=== PATIENT | male | born 1955 | race Caucasian/White ===

== ENCOUNTER 2016-10-12 11:52 | Inpatient (IN) | payer OTHER ==
[~2016-10-12] VITALS: Ht 170.2 cm; Wt 82.3 kg
[2016-10-12] VITALS (8 sets, daily range): BP systolic 146–175; BP diastolic 90–108; PULSE 106–160; RESP 20–22; Ht 170.2 cm; Wt 82.3 kg
[2016-10-12] MEDS ORDERED: METO75TA PO (13:53)
[2016-10-12] MEDS ORDERED: APIX2.5T PO (13:53)
[2016-10-12] MEDS ORDERED: FOLI-49 PO (13:53)
[2016-10-12] MEDS ORDERED: CARSR60 PO (13:53)
[2016-10-12] MEDS ORDERED: METF500T PO (13:53)
[2016-10-12] MEDS ORDERED: PANT40TA4 PO (13:53)
[2016-10-12] MEDS ORDERED: FURO40TA4 PO (13:53)
[2016-10-12] MEDS ORDERED: AMIO200T2 PO (13:57)
[2016-10-12] MEDS ORDERED: POLY17PO6 PO (13:57)
[2016-10-12] MEDS ORDERED: FER325 PO (13:57)
[2016-10-12] MEDS ORDERED: LOSA25TA5 PO (13:57)
[2016-10-12] MEDS ORDERED: DOCU-159 PO (13:57)
[2016-10-12] MEDS ORDERED: DIGO125T19 PO (13:57)
[2016-10-12] MEDS ORDERED: METO-429 PO (13:57)
[2016-10-12] MEDS ORDERED: FUROSEMIDE 40 MG INJ IV ONE (14:30)
[2016-10-12] MEDS ORDERED: LORAZEPAM 2 MG INJ IV PRN (14:30)
[2016-10-12] MEDS ORDERED: ONDANSETRON 4 MG INJ IV PRN (14:30)
[2016-10-12] MEDS ORDERED: NITROGLYCERIN (SL) 0.4 MG TAB SL PRN (14:30)
[2016-10-12] MEDS ORDERED: DOCUSATE SODIUM 100 MG CAP PO PRN ×2 (14:30)
[2016-10-12] MEDS ORDERED: NACL 0.9% 3 ML SYG IV SCH (14:30)
[2016-10-12] MEDS ORDERED: GLUCAGON 1 MG INJ IM PRN (15:00)
[2016-10-12] MEDS ORDERED: GLUCOSE GEL 15 GRAM TUBE PO PRN ×2 (15:00)
[2016-10-12] MEDS ORDERED: GLUCOSE GEL 15 GRAM TUBE BUCCAL PRN (15:00)
[2016-10-12] MEDS ORDERED: DEXTROSE 50% 50 ML SYRINGE IV PRN ×2 (15:00)
[2016-10-12] MEDS ORDERED: FUROSEMIDE 40 MG INJ IV SCH (15:00)
--- NOTE | 2016-10-12 15:00 | HP ---
Date/Time of Note Date/Time of Note DATE: 10/12/16 TIME: 14:37 Assessment/Plan VTE Prophylaxis VTE Prophylaxis Intervention: heparin Lines/Catheters IV C[facility]ter Type [facility]from [facility]): Saline Lock Assessment/Plan Assessment/Plan 60 yo male with a past medical history of dyslipidemia, end stage liver disease from ETOH abuse, cirrhosis, aortic stenosis, essential hypertension, type II DM , who came in 11/17 to having abdominal pain for the past three days. 1. Abd pain - viral vs bacterial gastroenteritis - will admit the patient to telemetry, obtain stool studies, IV antibiotics, pain management 2. Afib - not RVR - but elevated rate - will obtain 2D ECHO, cycle cardiac markers, TSH, Mag - replete, consult cardio, c/w digoxin, digoxin level, coreg, lasix, amio 3. ESLD - cirrhosis - hepatic adjust medications 4. /CAD - continue with aspirin 5. Anemia of chronic liver disease - continue with iron supplementation 6. Essential HTN - continue with home medications 7. Type II DM - uncontrolled - check hgba1c, ISS, start lantus/ISS 8. Dyslipidemia - continue with statin 9. GI ppx - pepcid 10. DVT ppx - heparin answered all of his questions, as per clinical course. this history and physical took greater then 45 minutes to complete HPI/ROS Admit Date/Time Admit Date/Time Oct 12, 2016 at 12:48 Hx of Present Illness 60 yo male with a past medical history of dyslipidemia, end stage liver disease from ETOH abuse, cirrhosis, aortic stenosis, essential hypertension, type II DM , who came in 11/17 to having abdominal pain for the past three days. He states that abdominal pain is diffuse, all quadrants, associated with nausea and 3 episodes of NBNB vomitus. He also had one loose stool. Otherwise complains of pleuritic chest pain, worse with deep inspiration, palpitations, and feeling tired. Had fevers/chills, with no sick contacts, has some dizziness. Denies any chest pain - cardiac, loss of consciousness, or urinary abnormalities. Initially the patient went to [facility] for initial evaluation and treatment and transferred here for insurance purposes. [facility] labs: H/H: 11.8/36.5, M.5, Gluc 185 UDS: negative Ct abd/pelvis: cardiomegaly, moderate right and mild left pleural effusions with associated compressive atelectasis, mild ascites, cirrhotic liver, cholelithiasis with thickened gallbladder wall, not CT evidence for obstructive uropathy or renal calculi, no CT evidence for appendicitis CXR: Mild congestive heart failure ROS 14 point review of systems completed, please refer to HPI for any positive findings PMH/Family/Social Past Medical History ESLD - , cirrhosis Medical History: congestive heart failure, diabetes, high cholesterol, hypertension Past Surgical History right eye resection Family History Significant Family History: other (ETOH abuse) Social History Alcohol Use: occasionally Smoking Status: Never smoker Drug Use: none Exam/Review of Systems Vital Signs Vitals Vital Signs Date Time Temp Pulse Resp B/P Pulse Ox O2 Delivery O2 Flow Rate FiO2 10/12/16 14:02 110 10/12/16 13:12 97.8 20 175/108 98 Nasal Cannula 2.0 Exam Exam Gen Mary Lou: moderate distress 2/2 abdominal pain, AAOx4 HEENT: NC/AT, JOS - left, EOMI, no pharyngeal erythema, no tonsillar exudates , no lymphadenopathy, no JVD, no carotid bruits NECK: supple, no thyromegaly THORAX: symmetrical, no obvious deformities CV: S1S2, tachycardiac - irregularly irregular, II/ - systolic murmur Lungs: bibasilar crackles, no wheezing Abd: soft, tenderness to deep palpation/ND, hyperactive +BS, no rebound, no guarding, hepatomegaly 2 cm below costophrenic angle EXT: trace bilateral lower extremity edema, no ecchymosis, no clubbing, FROM Neuro: CN II-XII grossly intact, no focal deficits Psych: anxious Skin: C/D/I HARRY DRAKE MD Oct 12, 2016 14:48
[2016-10-12 15:44] LABS: CREATINE KINASE 77 IU/L (23-200)
[2016-10-12 15:48] LABS: CHOL/HDL RATIO 3.9 RATIO
[2016-10-12 15:54] LABS: CK-MB 1.79 ng/ml (0.0-2.4)
[2016-10-12 15:57] LABS: TROPONIN-I < 0.012 ng/ml (0.00-0.12)
[2016-10-12] MEDS: DEXTROSE 5%-0.45% NACL 1,000 ML IV SCH (15:57)
[2016-10-12 16:16] LABS: THYROID STIMULATING HORMONE 1.75 MIU/L (0.465-4.680)
[2016-10-12] MEDS ORDERED: MAGNESIUM SULFATE 3 GM in SOD CHLORIDE 0.9% 100 ML IVPB SCH (16:30)
[2016-10-12] MEDS: INSULIN ASPART [NOVOLOG] 3 ML PEN SC SCH ×2 (17:46→21:00)
--- NOTE | 2016-10-12 18:25 | CONS ---
Date/Time of Note Date/Time of Note DATE: 10/12/16 TIME: 18:18 Assessment/Plan Assessment/Plan Additional Assessment/Plan Atrial fibrillation with rapid ventricular rates Alcohol abuse Liver cirrhosis Aortic stenosis based on history -Patient with issues of abdominal pain and nausea after alcohol use this weekend. Outside records demonstrated CT abdomen pelvis with moderate right- sided pleural effusion and mild left pleural effusion. Patient with episodes of atrial fibrillation with rapid ventricular rates, agree with continuing Cardizem , digoxin and amiodarone which patient was on as an outpatient. Patient on anticoagulation as well. Would obtain echocardiogram to evaluate LV function, for valvular pathology and IVC dimensions. Continue telemetry monitoring Consultation Date/Type/Reason Admit Date/Time Oct 12, 2016 at 12:48 Type of Consultation: cv Reason for Consultation Atrial fibrillation Hx of Present Illness This is a 60-year-old male with history of alcohol abuse, liver cirrhosis, aortic stenosis, atrial fibrillation who presented to an outside facility secondary to abdominal pain for 3-4 days. Patient does admit to significant drinking over the holiday weekend and afterwards has been feeling nauseous with abdominal pain. He does also complain of shortness of breath for the past year, palpitations and occasional dizziness. Denies any chest pain. Denies any fevers or chills. He is feeling better. He was transferred to our facility from an outside emergency room secondary to insurance reasons. He does have a pickle pumper which he sees as an outpatient but does not know her name. 12 point review of systems was performed with all pertinent positives and negatives mentioned above and all else is negative Past Medical History Atrial fibrillation Medical History: congestive heart failure, diabetes, high cholesterol, hypertension Past Surgical History Past Surgical Hx: no surgical history Family History Significant Family History: no pertinent family hx Social History Alcohol Use: heavy Smoking Status: Smoker,current status unk Drug Use: none Exam/Review of Systems Vital Signs Vitals Vital Signs Date Time Temp Pulse Resp B/P Pulse Ox O2 Delivery O2 Flow Rate FiO2 10/12/16 18:14 96 3.0 10/12/16 17:17 160 10/12/16 15:29 98.3 20 146/100 10/12/16 13:12 Nasal Cannula Exam No apparent distress Constitutional: alert, oriented, well developed Head: normocephalic Neck: supple Cardiovascular: irregular rhythm, other (S1-S2 heard), systolic murmur Gastrointestinal: bowel sounds, distended, other (no guarding), soft, tender ( diffuse discomfort with palpation) Extremities: edema (trace) Results Results 24 hrs Laboratory Tests Test 10/12/16 15:05 10/12/16 17:40 Cholesterol Level 150 Cholesterol/HDL Ratio 3.9 Creatine Kinase 77 Creatine Kinase Index 2.3 Creatinine Kinase MB (Mass) 1.79 Digoxin Level < 0.4 L HDL Cholesterol 38 LDL Cholesterol, Calculated 94 Thyroid Stimulating Hormone (TSH) 1.750 Triglycerides Level 90 Troponin I < 0.012 Bedside Glucose 187 Medications Medications Current Medications Dextrose/Sodium Chloride (D5-1/2ns) 1,000 ml @ 75 mls/hr [id number] IV Last administered on 10/12/16at 15:57; Admin Dose 75 MLS/HR; Start 10/12/16 at 14:30 ; Stop 10/13/16 at 17:09 Lorazepam (Ativan) 0.5 mg Q6H PRN IV ANXIETY; Start 10/12/16 at 14:30 Ondansetron HCl (Zofran Inj) 4 mg Q6H PRN IV NAUSEA AND/OR VOMITING; Start at 14:30 Nitroglycerin (Nitroglycerin (Sl Tab) 0.4 Mg) 1 tab Q5M PRN SL CHEST PAIN; Start 10/12/16 at 14:30 Acetaminophen (Tylenol Tab) 650 mg Q6H PRN PO PAIN LEVEL 1-3 OR FEVER; Start 10/12/16 at 14:30 Morphine Sulfate (morphine) 2 mg Q4H PRN IV PAIN LEVEL 7-10; Start 10/12/16 at 14:30 Docusate Sodium (Colace) 100 mg Q12H PRN PO CONSTIPATION; Start 10/12/16 at 14 :30 Famotidine (Pepcid) 20 mg Q12 PO ; Start 10/12/16 at 21:00 Heparin Sodium (Porcine) (Heparin (5000 Units/0.5 ml)) 5,000 unit Q12 SC ; Start 10/12/16 at 21:00 Amiodarone HCl (Cordarone) 200 mg BID PO ; Start 10/12/16 at 21:00 Apixaban (Eliquis) 5 mg BID PO ; Start 10/12/16 at 21:00 Digoxin (Digoxin) 0.125 mg DAILY@13 PO ; Start 10/13/16 at 13:00 Diltiazem HCl (Cardizem Sr) 60 mg Q8 PO ; Start 10/12/16 at 22:00 Ferrous Sulfate (Ferrous Sulfate (Ec)) 325 mg DAILY PO ; Start 10/13/16 at 09: 00 Folic Acid (Folic Acid) 1 mg DAILY PO ; Start 10/13/16 at 09:00 Furosemide (Lasix) 40 mg DAILY PO ; Start 10/13/16 at 09:00 Losartan Potassium (Cozaar) 25 mg DAILY PO ; Start 10/13/16 at 09:00 Metoprolol Tartrate (Lopressor) 50 mg BID PO ; Start 10/12/16 at 21:00 Pantoprazole (Protonix Tab) 40 mg DAILY@06 PO ; Start 10/13/16 at 06:00 Polyethylene Glycol (Miralax) 17 gm DAILY PO ; Start 10/13/16 at 09:00 Diagnostic Test (Pha) (Accucheck) 1 ea 02 XX ; Start 10/13/16 at 02:00 Influenza Virus Vaccine (Fluzone) 0.5 ml ONCE ONCE IM* ; Start 10/13/16 at 09: 00; Stop 10/13/16 at 09:01 Miscellaneous Information 1 ea NOTE XX ; Start 10/12/16 at 15:00 Glucose (Glutose) 15 gm Q15M PRN PO DECREASED GLUCOSE; Start 10/12/16 at 15:00 Glucose (Glutose) 22.5 gm Q15M PRN PO DECREASED GLUCOSE; Start 10/12/16 at 15: 00 Dextrose (D50w Syringe) 25 ml Q15M PRN IV DECREASED GLUCOSE; Start 10/12/16 at 15:00 Dextrose (D50w Syringe) 50 ml Q15M PRN IV DECREASED GLUCOSE; Start 10/12/16 at 15:00 Glucagon (Glucagen) 1 mg Q15M PRN IM DECREASED GLUCOSE; Start 10/12/16 at 15: 00 Glucose 15 gm 15 gm Q15M PRN BUCCAL DECREASED GLUCOSE; Start 10/12/16 at 15:00 Magnesium Sulfate/ Sodium Chloride (Magnesium Sulfate/NS) 106 ml @ 35.333 mls/ hr ONCE IVPB Last administered on 10/12/16at 17:41; Admin Dose 35.333 MLS/HR; Start 10/12/16 at 16:30; Stop 10/12/16 at 19:29 Procedures Procedures ECG demonstrates H with fibrillation at 105 bpm, QRS 110 ms, nonspecific STT wave abnormalities Hans Marrero DO Oct 12, 2016 18:25
[2016-10-12] MEDS: morphine 2 MG INJ IV PRN (20:02)
[2016-10-12 20:35] LABS: CREATINE KINASE 69 IU/L (23-200)
[2016-10-12] MEDS: FAMOTIDINE 20 MG TAB PO SCH (20:57)
[2016-10-12] MEDS: AMIODARONE 200 MG TAB PO SCH (20:57)
[2016-10-12] MEDS: APIXABAN 5 MG TABLET PO SCH (20:57)
[2016-10-12] MEDS ORDERED: HEPARIN 5,000 UNIT/0.5 ML SYG SC SCH (21:00)
[2016-10-12 21:01] LABS: CK-MB 1.43 ng/ml (0.0-2.4); TROPONIN-I < 0.010 ng/ml (0.00-0.12)
[2016-10-12] MEDS: METOPROLOL 50 MG TAB PO SCH (22:30)
[2016-10-12] MEDS: DILTIAZEM (SR) 60 MG CAP PO SCH (22:31)
[2016-10-13] VITALS (13 sets, daily range): BP systolic 121–138; BP diastolic 80–93; PULSE 77–110; RESP 18–20
[2016-10-13] MEDS: ACCUCHECK XX SCH (02:00)
[2016-10-13] MEDS: DEXTROSE 5%-0.45% NACL 1,000 ML IV SCH (05:23)
[2016-10-13] MEDS: PANTOPRAZOLE (EC) 40 MG TAB PO SCH (05:23)
[2016-10-13] MEDS: DILTIAZEM (SR) 60 MG CAP PO SCH ×3 (05:23→21:06)
[2016-10-13 07:36] LABS: BASOPHILS % 0.6 % (0.0-2.0); EOSINOPHILS # 0.1 10^3/ul (0.0-0.5); EOSINOPHILS % 2.2 % (0.0-7.0); HEMATOCRIT 32.8 % (42.0-52.0); HEMOGLOBIN 10.7 g/dl (14.0-18.0); LYMPHOCYTES # 0.9 10^3/ul (0.8-2.9); LYMPHOCYTES % 15.9 % (15.0-51.0); MEAN CORPUSCULAR HEMOGLOBIN 28.7 pg (29.0-33.0); MEAN CORPUSCULAR HGB CONC 32.5 g/dl (32.0-37.0); MEAN CORPUSCULAR VOLUME 88.3 fl (82.0-101.0); MEAN PLATELET VOLUME 8.8 fl (7.4-10.4); MONOCYTE # 0.6 10^3/ul (0.3-0.9); MONOCYTES % 9.9 % (0.0-11.0); NEUTROPHIL # 4.1 10^3/ul (1.6-7.5); NEUTROPHILS % 71.4 % (39.0-77.0); PLATELET COUNT 141 10^3/UL (140-440); RED BLOOD COUNT 3.72 10^6/ul (4.70-6.10); RED CELL DISTRIBUTION WIDTH 18.4 % (11.5-14.5); UNCORRECTED WBC 5.8 10^3/ul (4.8-10.8); WHITE BLOOD COUNT 5.8 10^3/ul (4.8-10.8)
[2016-10-13 07:38] LABS: CONDITION 1; LH ANALYZER COMMENTS 1
[2016-10-13 07:52] LABS: POTASSIUM 3.8 mmol/L (3.5-5.1)
[2016-10-13 07:54] LABS: CREATININE 1.12 mg/dl (0.61-1.24)
[2016-10-13 07:55] LABS: CALCIUM 8.3 mg/dl (8.4-10.2)
[2016-10-13] MEDS ORDERED: INFLUENZA VIRUS VACCINE 0.5 ML (DISPENSING) IM* ONE (09:00)
[2016-10-13] MEDS: AMIODARONE 200 MG TAB PO SCH ×2 (09:25→21:05)
[2016-10-13] MEDS: APIXABAN 5 MG TABLET PO SCH ×2 (09:25→21:05)
[2016-10-13] MEDS: FAMOTIDINE 20 MG TAB PO SCH ×2 (09:25→21:05)
[2016-10-13] MEDS: FERROUS SULFATE (EC) 325 MG TAB PO SCH (09:25)
[2016-10-13] MEDS: FOLIC ACID 1 MG TAB PO SCH (09:26)
[2016-10-13] MEDS: METOPROLOL 50 MG TAB PO SCH ×2 (09:26→21:06)
[2016-10-13] MEDS: FUROSEMIDE 40 MG TAB PO SCH (09:26)
[2016-10-13] MEDS: LOSARTAN 25 MG TAB PO SCH (09:26)
[2016-10-13] MEDS: POLYETHYLENE GLYCOL 17 GM PACKET PO SCH (09:26)
[2016-10-13] MEDS: INSULIN ASPART [NOVOLOG] 3 ML PEN SC SCH ×4 (09:30→21:00)
[2016-10-13] MEDS: morphine 2 MG INJ IV PRN (10:23)
--- NOTE | 2016-10-13 11:04 | PN ---
Date/Time of Note Date/Time of Note DATE: 10/13/16 TIME: 10:58 Assessment/Plan VTE Prophylaxis VTE Prophylaxis Intervention: other (eliquis) Lines/Catheters IV Catheter Type (from Nrs): Saline Lock Urinary Cath still in place: No Assessment/Plan Assessment/Plan 60 yo male with a past medical history of dyslipidemia, end stage liver disease from ETOH abuse, cirrhosis, aortic stenosis, essential hypertension, type II DM , who came in 2/2 to having abdominal pain for the past three days. 1. Abd pain - viral vs bacterial gastroenteritis - improving with IV antibiotics 2. Afib - intermittent RVR - but elevated rate - dig low - appreciate cardio recs, ECHO pending, rate better controlled - on Eliquis [id number] of 4 3. ESLD - cirrhosis - hepatic adjust medications 4. /CAD - continue with aspirin 5. Anemia of chronic liver disease - continue with iron supplementation 6. Essential HTN - continue with home medications 7. Type II DM - uncontrolled - check hgba1c, ISS, start lantus/ISS 8. Dyslipidemia - continue with statin 9. GI ppx - pepcid 10. DVT ppx - heparin dispo - f/u recs, will recheck chest xray, as per clinical course. this progress note took greater than 40 minutes to complete Subjective 24 Hr Interval Summary Free Text/Dictation Patient had no overnight events. Feels better today. Spoke to him about the care plan. 15 minutes spent. Exam/Review of Systems Vital Signs Vitals Vital Signs Date Time Temp Pulse Resp B/P Pulse Ox O2 Delivery O2 Flow Rate FiO2 10/13/16 08:35 90 10/13/16 07:55 Nasal Cannula 2.0 10/13/16 07:50 98.5 18 127/85 97 Intake and Output 10/12/16 10/12/16 10/13/16 15:00 23:00 07:00 Intake Total 415 ml 1800 ml Output Total 600 ml Balance -185 ml 1800 ml Exam Gen Mary Lou: mild distress 2/2 abdominal pain, AAOx4 HEENT: NC/AT, JOS - left, EOMI, no pharyngeal erythema, no tonsillar exudates , no lymphadenopathy, no JVD, no carotid bruits NECK: supple, no thyromegaly THORAX: symmetrical, no obvious deformities CV: S1S2, tachycardiac - irregularly irregular, II/ - systolic murmur Lungs: bibasilar crackles, no wheezing - mild improvement Abd: soft, tenderness to deep palpation/ND, hyperactive +BS, no rebound, no guarding, hepatomegaly 2 cm below costophrenic angle EXT: trace bilateral lower extremity edema, no ecchymosis, no clubbing, FROM Neuro: CN II-XII grossly intact, no focal deficits Psych: anxious Skin: C/D/I Results Result Diagram: 10/13/16 0700 10/13/16 0700 Results 24 hrs Laboratory Tests Test 10/12/16 15:05 10/12/16 17:40 10/12/16 20:10 10/12/16 21:00 Cholesterol Level 150 Cholesterol/HDL Ratio 3.9 Creatine Kinase 77 69 Creatine Kinase Index 2.3 2.1 Creatinine Kinase MB (Mass) 1.79 1.43 Digoxin Level < 0.4 L HDL Cholesterol 38 Hemoglobin A1c 7.4 H LDL Cholesterol, Calculated 94 Thyroid Stimulating Hormone (TSH) 1.750 Triglycerides Level 90 Troponin I < 0.012 < 0.010 Bedside Glucose 187 98 Test 10/13/16 07:00 10/13/16 07:47 Anion Gap 17 H Basophils # 0.0 Basophils % 0.6 Blood Morphology Comment Blood Urea Nitrogen 20 Calcium Level 8.3 L Carbon Dioxide Level 28 Chloride Level 100 Creatinine 1.12 Eosinophils # 0.1 Eosinophils % 2.2 Glucose Level 139 Hematocrit 32.8 L Hemoglobin 10.7 L Lymphocytes # 0.9 Lymphocytes % 15.9 Magnesium Level 2.0 Mean Corpuscular Hemoglobin 28.7 L Mean Corpuscular Hemoglobin Concent 32.5 Mean Corpuscular Volume 88.3 Mean Platelet Volume 8.8 Monocytes # 0.6 Monocytes % 9.9 Neutrophils # 4.1 Neutrophils % 71.4 Nucleated Red Blood Cells # 0.0 Nucleated Red Blood Cells % 0.0 Platelet Count 141 Potassium Level 3.8 Red Blood Count 3.72 L Red Cell Distribution Width 18.4 H Sodium Level 141 White Blood Count 5.8 Bedside Glucose 142 Medications Medications Current Medications Dextrose/Sodium Chloride (D5-1/2ns) 1,000 ml @ 75 mls/hr [id number] IV Last administered on 10/13/16at 05:23; Admin Dose 75 MLS/HR; Start 10/12/16 at 14:30 ; Stop 10/13/16 at 17:09 Lorazepam (Ativan) 0.5 mg Q6H PRN IV ANXIETY; Start 10/12/16 at 14:30 Ondansetron HCl (Zofran Inj) 4 mg Q6H PRN IV NAUSEA AND/OR VOMITING; Start at 14:30 Nitroglycerin (Nitroglycerin (Sl Tab) 0.4 Mg) 1 tab Q5M PRN SL CHEST PAIN; Start 10/12/16 at 14:30 Acetaminophen (Tylenol Tab) 650 mg Q6H PRN PO PAIN LEVEL 1-3 OR FEVER; Start 10/12/16 at 14:30 Morphine Sulfate (morphine) 2 mg Q4H PRN IV PAIN LEVEL 7-10 Last administered on 10/13/16at 10:23; Admin Dose 2 MG; Start 10/12/16 at 14:30 Docusate Sodium (Colace) 100 mg Q12H PRN PO CONSTIPATION; Start 10/12/16 at 14 :30 Famotidine (Pepcid) 20 mg Q12 PO Last administered on 10/13/16at 09:25; Admin Dose 20 MG; Start 10/12/16 at 21:00 Amiodarone HCl (Cordarone) 200 mg BID PO Last administered on 10/13/16 09:25 ; Admin Dose 200 MG; Start 10/12/16 at 21:00 Apixaban (Eliquis) 5 mg BID PO Last administered on 10/13/16 09:25; Admin Dose 5 MG; Start 10/12/16 at 21:00 Digoxin (Digoxin) 0.125 mg DAILY@13 PO ; Start 10/13/16 at 13:00 Diltiazem HCl (Cardizem Sr) 60 mg Q8 PO Last administered on 10/13/16at 05:23; Admin Dose 60 MG; Start 10/12/16 at 22:00 Ferrous Sulfate (Ferrous Sulfate (Ec)) 325 mg DAILY PO Last administered on 09:25; Admin Dose 325 MG; Start 10/13/16 at 09:00 Folic Acid (Folic Acid) 1 mg DAILY PO Last administered on 10/13/16 09:26; Admin Dose 1 MG; Start 10/13/16 at 09:00 Furosemide (Lasix) 40 mg DAILY PO Last administered on 12/29/16at 09:26; Admin Dose 40 MG; Start 10/13/16 at 09:00 Losartan Potassium (Cozaar) 25 mg DAILY PO Last administered on 10/13/16at 09: 26; Admin Dose 25 MG; Start 10/13/16 at 09:00 Metoprolol Tartrate (Lopressor) 50 mg BID PO Last administered on 10/13/16at 09 :26; Admin Dose 50 MG; Start 10/12/16 at 21:00 Pantoprazole (Protonix Tab) 40 mg DAILY@06 PO Last administered on 10/13/16at 05:23; Admin Dose 40 MG; Start 10/13/16 at 06:00 Polyethylene Glycol (Miralax) 17 gm DAILY PO Last administered on 10/13/16at 09 :26; Admin Dose 17 GM; Start 10/13/16 at 09:00 Diagnostic Test (Pha) (Accucheck) 1 ea 02 XX ; Start 10/13/16 at 02:00 Miscellaneous Information 1 ea NOTE XX ; Start 10/12/16 at 15:00 Glucose (Glutose) 15 gm Q15M PRN PO DECREASED GLUCOSE; Start 10/12/16 at 15:00 Glucose (Glutose) 22.5 gm Q15M PRN PO DECREASED GLUCOSE; Start 10/12/16 at 15: 00 Dextrose (D50w Syringe) 25 ml Q15M PRN IV DECREASED GLUCOSE; Start 10/12/16 at 15:00 Dextrose (D50w Syringe) 50 ml Q15M PRN IV DECREASED GLUCOSE; Start 10/12/16 at 15:00 Glucagon (Glucagen) 1 mg Q15M PRN IM DECREASED GLUCOSE; Start 10/12/16 at 15: 00 Glucose (Glutose) 15 gm Q15M PRN BUCCAL DECREASED GLUCOSE; Start 10/12/16 at 15:00 HARRY DRAKE MD Oct 13, 2016 11:04
--- NOTE | 2016-10-13 12:17 | PSY ---
Date/Time of Note Date/Time of Note DATE: 10/13/16 TIME: 12:08 Psychiatric Subjective Eval Consent Pt consented to telemedicine: Yes Subjective Evaluation Patient location: inpatient Chief Complaint: "Hearing vocies" Reason for consult: d/w Dr Bryan - pt c/o AH and VH, expressed SI History of present illness 60 yo male with hx alcohol use disorder, severe, end stage liver disease , admitted due to abdominal pain. UDS not done, ETOH level not done,NH3 pending. pt reproted AH and VH, insomnia, and vague HI toward his family: "I think about hurting them with a knife but then I think about it I see an animal on my way". Also reports depression and vague SI" No , i don't wnat to kill myself but the voices tell me to throw myself off the stairs". + PI Pt states , his last drink was 09/29, however, no way to verify it. Past psychiatric history no current psych meds; hx prior inptx1 due to SI; no actual hx of SA Hospitalization: yes Family History denies Medical history as per record Allergies: Coded Allergies: No Known Allergy (Unverified , 10/12/16) Substance Abuse Substance abuse history: Yes Prior substance abuse treatmen: Yes Social History Marital status: Level of education: 6th grade DPA/Conservatorship: No Occupation/Fci: unemployed Psychiatric Objective Eval Physical Examination: Sleep: Insomnia Mental Status Examination: Appearance: Disheveled Eye Contact: Fair Psychomotor Activity: Normal Behavior: Cooperative Speech: Clear AFFECT: Anxious Mood: Anxious Though Process: Circumstantial Thought Content: Hallucinations Suicidal: No Homicidal: Yes On 72 hour hold: No Orientation: x3 Cognition: Alert Insight: Mild Judgement: Mild Attention Span: Intact Laboratory Results Laboratory Tests Test 10/12/16 15:05 10/12/16 17:40 10/12/16 20:10 10/12/16 21:00 Cholesterol Level 150mg/dl Cholesterol/HDL Ratio 3.9RATIO Creatine Kinase 77IU/L 69IU/L Creatine Kinase Index 2.3 2.1 Creatinine Kinase MB (Mass) 1.79ng/ml 1.43ng/ml Digoxin Level < 0.4ng/ml HDL Cholesterol 38mg/dl Hemoglobin A1c 7.4% LDL Cholesterol, Calculated 94mg/dl Thyroid Stimulating Hormone (TSH) 1.750MIU/L Triglycerides Level 90mg/dl Troponin I < 0.012ng/ml < 0.010ng/ml Bedside Glucose 187mg/dL 98mg/dL Test 10/13/16 07:00 10/13/16 07:47 10/13/16 11:53 Anion Gap 17 Basophils # 0.010^3/ul Basophils % 0.6% Blood Morphology Comment Blood Urea Nitrogen 20mg/dl Calcium Level 8.3mg/dl Carbon Dioxide Level 28mmol/L Chloride Level 100mmol/L Creatinine 1.12mg/dl Eosinophils # 0.110^3/ul Eosinophils % 2.2% Glucose Level 139mg/dl Hematocrit 32.8% Hemoglobin 10.7g/dl Lymphocytes # 0.910^3/ul Lymphocytes % 15.9% Magnesium Level 2.0mg/dl Mean Corpuscular Hemoglobin 28.7pg Mean Corpuscular Hemoglobin Concent 32.5g/dl Mean Corpuscular Volume 88.3fl Mean Platelet Volume 8.8fl Monocytes # 0.610^3/ul Monocytes % 9.9% Neutrophils # 4.110^3/ul Neutrophils % 71.4% Nucleated Red Blood Cells # 0.010^3/ul Nucleated Red Blood Cells % 0.0/100WBC Platelet Count 00494^3/UL Potassium Level 3.8mmol/L Red Blood Count 3.7210^6/ul Red Cell Distribution Width 18.4% Sodium Level 141mmol/L White Blood Count 5.810^3/ul Bedside Glucose 142mg/dL 99mg/dL Assessment and Plan Assessment/Diagnosis [place] I: Alcohol withdrawal delirium vs delirium due to hepatic encephalopathy [place] II: defered [place] III: as per record [place] IV: severe [place] V: gaf 25 Recommendation/Plan Medication Management Please initiate CIWA, pt's last drink was 72 hrs ago, he most likely experiencing alcohol withdrawals delirium; consider starting on lactulose as well. Please start on Haldol 2 mg po bid Psychotherapy defer to inpt Pt. Caregiver/Family Education SW - please file [place], inform the family of pt's threats toward them (he did not make threates toward any specific family members and has no intent to hurt them, but has command and about hurting his family members with a knife). Follow-up/Disposition Pt needs to be re-evaluated then medically cleared. Most likely will require inpt psych admission. Please place on 5150 for DTO and arrange 1:1 sitter. 5150 Recommendation: Place Hold NEEL LISA MD Oct 13, 2016 12:17
[2016-10-13] MEDS: DIGOXIN 0.125 MG TAB PO SCH (13:03)
[2016-10-13] MEDS ORDERED: LORAZEPAM 2 MG INJ IV PRN (13:30)
[2016-10-13] MEDS: HALOPERIDOL 1 MG TAB PO SCH ×2 (14:24→21:07)
--- NOTE | 2016-10-13 14:25 | RADRPT ---
Echocardiogram Report Patient Name: KANDACE CERVANTES Gender: Male Date: 1955 Study Date: 12-Oct-2016 Cosmetic Maker: Evan Rico [facility] Location: 504 Ref. Physician: HARRY DRAKE Quality: Good Procedures: Transthoracic echocardiogram with complete 2D, M-Mode, and doppler examination. Indications: Atrial Fibrillation. 2D/M Mode Doppler Measurement Value Normal Ranges Measurement Value Normal Ranges LVIDd 2D 5.1 3.5 - 5.6 cm JESSICA Vmax 1.5 cm2 LVIDs 2D 2.7 2.1 - 4.1 cm JESSICA VTI 1.5 cm2 LVPWd 2D 0.9 0.6 - 1.1 cm AV Mean Arsen 1.8 m/sec IVSd 2D 0.9 0.6 - 1.1 cm AV Mean PG 13.9 mmHg AoR Diam 2D 3.4 2.0 - 3.7 cm AV Peak Arsen 2.4 m/sec EDV 2D 123.3 cm3 AV Peak PG 22.9 mmHg ESV 2D 20.8 cm3 AV VTI 35.1 cm LVOT Diam 2.1 cm LVOT Mean Arsen 0.8 m/sec LVOT Mean PG 2.9 mmHg LVOT Peak Arsen 1.0 m/sec LVOT Peak PG 4.3 mmHg LVOT VTI 16.2 cm TR Peak Arsen 4.4 m/sec TR Peak PG 76.9 mmHg RVSP 92.0 mmHg Findings Left Ventricle: Normal left ventricular systolic function. Normal left ventricular cavity size. Normal left ventricular wall thickness. Ejection fraction is visually estimated at 55 %. Abnormal Diastolic Function. Right Ventricle: Mild enlargement of right ventricle. Mild right ventricular hypokinesis. Left Atrium: There is mild enlargement of left atrium. Right Atrium: There is severe enlargement of right atrium. Mitral Valve: Mitral valve leaflets appear mildly thickened. Mild mitral annular calcification. Moderate mitral valve regurgitation. The regurgitation jet is eccentrically directed which may underestimate the severity of mitral regurgitation. Aortic Valve: Aortic sclerosis without stenosis. Aortic cusps appear severely calcified. Trace aortic valve regurgitation. Tricuspid Valve: Estimated peak PA systolic pressure 92 mmHg. Tricuspid valve appears mildly thickened. There is moderate tricuspid regurgitation. Pulmonic Valve: Normal pulmonic valve appearance. Pericardium: Normal pericardium with no significant pericardial effusion. Aorta: Normal aortic root. IVC: Dilated IVC without respiratory collapse consistent with elevated right atrial pressure. Pulmonary Artery: Normal pulmonary artery size. Conclusions 1.Normal left ventricular systolic function. Normal left ventricular cavity size. Normal left ventricular wall thickness. Ejection fraction is visually estimated at 55 %. Abnormal Diastolic Function. 2.Mild enlargement of right ventricle. Mild right ventricular hypokinesis. 3.There is mild enlargement of left atrium. 4.There is severe enlargement of right atrium. 5.Moderate mitral valve regurgitation. The regurgitation jet is eccentrically directed which may underestimate the severity of mitral regurgitation. 6.Aortic sclerosis without stenosis. Trace aortic valve regurgitation. 7.Estimated peak PA systolic pressure 92 mmHg. There is moderate tricuspid regurgitation. 8.Normal pericardium with no significant pericardial effusion. Electronically Signed By: Hans Marrero 13-Oct-2016 14:24:56 -0800 Patient Name: KANDACE CERVANTES Study Date: 12-Oct-[id number]
[2016-10-13] MEDS: ACETAMINOPHEN 325 MG TAB PO PRN (14:54)
--- NOTE | 2016-10-13 17:39 | RADRPT ---
PROCEDURE: XR Chest. CLINICAL INDICATION: Pleural effusion. TECHNIQUE: Two views. Frontal and lateral. COMPARISON: No prior study is available for comparison. FINDINGS: There is mild atelectasis at the lung bases posteriorly. The lungs are otherwise clear. The heart is enlarged. There is calcification in the aorta consistent with atherosclerosis. There are small bilateral pleural effusions seen only on the lateral view. There is no pneumothorax. IMPRESSION: 1. Mild atelectasis at the lung bases posteriorly. 2. Cardiomegaly and atherosclerosis. 3. Small bilateral pleural effusions. RPTAT: QQ .Osmin Andre MD, Date Time Electronically viewed and signed by .Osmin Andre MD, on 10/13/2016 17:39 .R/
--- NOTE | 2016-10-13 22:48 | CONS ---
Date/Time of Note Date/Time of Note DATE: 10/13/16 TIME: 22:44 Assessment/Plan Assessment/Plan Additional Assessment/Plan Atrial fibrillation with rapid ventricular rates, improved MR/TR Pulmonary HTN Acute decompensated valvular and diastolic congestive heart failure Alcohol abuse Liver cirrhosis -pt with improvement in hr, change cardizem to prn, cont lopressor, start aldactone, if bp and renal fxn tolerate, increase dose of arb for afterload reduction. Consultation Date/Type/Reason Admit Date/Time Oct 12, 2016 at 12:48 Initial Consult Date Type of Consultation: cv 24 HR Interval Summary Free Text/Dictation denies cp, palpitations, sob is worse when his abdomen hurts Exam/Review of Systems Vital Signs Vitals Vital Signs Date Time Temp Pulse Resp B/P Pulse Ox O2 Delivery O2 Flow Rate FiO2 10/13/16 21:39 3.0 10/13/16 20:23 97.7 95 20 138/90 97 10/13/16 07:55 Nasal Cannula Intake and Output 10/12/16 10/12/16 10/13/16 15:00 23:00 07:00 Intake Total 415 ml 1800 ml Output Total 600 ml Balance -185 ml 1800 ml Exam nad Constitutional: alert, obese, oriented Head: normocephalic Neck: supple Respiratory: other (course bs, no wheeze) Cardiovascular: irregular rhythm, other (s1s2), systolic murmur Gastrointestinal: bowel sounds, non-tender, soft Extremities: edema Results Result Diagram: 10/13/16 0700 10/13/16 0700 Results 24 hrs Laboratory Tests Test 10/13/16 07:00 10/13/16 07:47 10/13/16 11:53 10/13/16 12:25 Anion Gap 17 H Basophils # 0.0 Basophils % 0.6 Blood Morphology Comment Blood Urea Nitrogen 20 Calcium Level 8.3 L Carbon Dioxide Level 28 Chloride Level 100 Creatinine 1.12 Eosinophils # 0.1 Eosinophils % 2.2 Glucose Level 139 Hematocrit 32.8 L Hemoglobin 10.7 L Lymphocytes # 0.9 Lymphocytes % 15.9 Magnesium Level 2.0 Mean Corpuscular Hemoglobin 28.7 L Mean Corpuscular Hemoglobin Concent 32.5 Mean Corpuscular Volume 88.3 Mean Platelet Volume 8.8 Monocytes # 0.6 Monocytes % 9.9 Neutrophils # 4.1 Neutrophils % 71.4 Nucleated Red Blood Cells # 0.0 Nucleated Red Blood Cells % 0.0 Platelet Count 141 Potassium Level 3.8 Red Blood Count 3.72 L Red Cell Distribution Width 18.4 H Sodium Level 141 White Blood Count 5.8 Bedside Glucose 142 99 Ammonia 11 Test 10/13/16 18:00 10/13/16 20:28 Bedside Glucose 125 150 Medications Medications Current Medications Ondansetron HCl (Zofran Inj) 4 mg Q6H PRN IV NAUSEA AND/OR VOMITING; Start at 14:30 Nitroglycerin (Nitroglycerin (Sl Tab) 0.4 Mg) 1 tab Q5M PRN SL CHEST PAIN; Start 10/12/16 at 14:30 Acetaminophen (Tylenol Tab) 650 mg Q6H PRN PO PAIN LEVEL 1-3 OR FEVER Last administered on 10/13/16at 14:54; Admin Dose 650 MG; Start 10/12/16 at 14:30 Morphine Sulfate (morphine) 2 mg Q4H PRN IV PAIN LEVEL 7-10 Last administered on 10/13/16at 10:23; Admin Dose 2 MG; Start 10/12/16 at 14:30 Docusate Sodium (Colace) 100 mg Q12H PRN PO CONSTIPATION; Start 10/12/16 at 14 :30 Famotidine (Pepcid) 20 mg Q12 PO Last administered on 10/13/16at 21:05; Admin Dose 20 MG; Start 10/12/16 at 21:00 Amiodarone HCl (Cordarone) 200 mg BID PO Last administered on 10/13/16at 21:05 ; Admin Dose 200 MG; Start 10/12/16 at 21:00 Apixaban (Eliquis) 5 mg BID PO Last administered on 10/13/16at 21:05; Admin Dose 5 MG; Start 10/12/16 at 21:00 Digoxin (Digoxin) 0.125 mg DAILY@13 PO Last administered on 10/13/16at 13:03; Admin Dose 0.125 MG; Start 10/13/16 at 13:00 Diltiazem HCl (Cardizem Sr) 60 mg Q8 PO Last administered on 10/13/16at 21:06; Admin Dose 60 MG; Start 10/12/16 at 22:00 Ferrous Sulfate (Ferrous Sulfate (Ec)) 325 mg DAILY PO Last administered on at 09:25; Admin Dose 325 MG; Start 10/13/16 at 09:00 Folic Acid (Folic Acid) 1 mg DAILY PO Last administered on 10/13/16at 09:26; Admin Dose 1 MG; Start 10/13/16 at 09:00 Furosemide (Lasix) 40 mg DAILY PO Last administered on 10/13/16at 09:26; Admin Dose 40 MG; Start 10/13/16 at 09:00 Losartan Potassium (Cozaar) 25 mg DAILY PO Last administered on 10/13/16at 09: 26; Admin Dose 25 MG; Start 10/13/16 at 09:00 Metoprolol Tartrate (Lopressor) 50 mg BID PO Last administered on 10/13/16at 21 :06; Admin Dose 50 MG; Start 10/12/16 at 21:00 Pantoprazole (Protonix Tab) 40 mg DAILY@06 PO Last administered on 10/13/16at 05:23; Admin Dose 40 MG; Start 10/13/16 at 06:00 Polyethylene Glycol (Miralax) 17 gm DAILY PO Last administered on 10/13/16at 09 :26; Admin Dose 17 GM; Start 10/13/16 at 09:00 Diagnostic Test (Pha) (Accucheck) 1 ea 02 XX ; Start 10/13/16 at 02:00 Miscellaneous Information 1 ea NOTE XX ; Start 10/12/16 at 15:00 Glucose (Glutose) 15 gm Q15M PRN PO DECREASED GLUCOSE; Start 10/12/16 at 15:00 Glucose (Glutose) 22.5 gm Q15M PRN PO DECREASED GLUCOSE; Start 10/12/16 at 15: 00 Dextrose (D50w Syringe) 25 ml Q15M PRN IV DECREASED GLUCOSE; Start 10/12/16 at 15:00 Dextrose (D50w Syringe) 50 ml Q15M PRN IV DECREASED GLUCOSE; Start 10/12/16 at 15:00 Glucagon (Glucagen) 1 mg Q15M PRN IM DECREASED GLUCOSE; Start 10/12/16 at 15: 00 Glucose (Glutose) 15 gm Q15M PRN BUCCAL DECREASED GLUCOSE; Start 10/12/16 at 15:00 Haloperidol (Haldol) 2 mg BID PO Last administered on 10/13/16at 21:07; Admin Dose 2 MG; Start 10/13/16 at 13:30 Diphenhydramine HCl (Benadryl) 50 mg Q6H PRN PO ALLERGIC REACTION; Start 10/13 at 13:30 Lorazepam (Ativan) 2 mg Q8H PRN IV AGITATION/ANXIETY; Start 10/13/16 at 13:30 Hans Marrero DO Oct 13, 2016 22:48
[2016-10-13] MEDS ORDERED: DILTIAZEM 30 MG TAB PO PRN (23:00)
[2016-10-14] VITALS (11 sets, daily range): BP systolic 126–155; BP diastolic 80–92; PULSE 71–90; RESP 20–28
[2016-10-14] MEDS: ACCUCHECK XX SCH (02:30)
[2016-10-14] MEDS: SPIRONOLACTONE 25 MG TAB PO SCH ×2 (05:32→17:45)
[2016-10-14] MEDS: PANTOPRAZOLE (EC) 40 MG TAB PO SCH (05:32)
[2016-10-14 07:19] LABS: BASOPHILS % 0.3 % (0.0-2.0); EOSINOPHILS # 0.2 10^3/ul (0.0-0.5); EOSINOPHILS % 2.8 % (0.0-7.0); HEMATOCRIT 34.3 % (42.0-52.0); LYMPHOCYTES # 0.8 10^3/ul (0.8-2.9); LYMPHOCYTES % 14.4 % (15.0-51.0); MEAN CORPUSCULAR HEMOGLOBIN 28.6 pg (29.0-33.0); MEAN CORPUSCULAR VOLUME 89.4 fl (82.0-101.0); MONOCYTE # 0.6 10^3/ul (0.3-0.9); MONOCYTES % 10.9 % (0.0-11.0); NEUTROPHILS % 71.6 % (39.0-77.0); PLATELET COUNT 170 10^3/UL (140-440); RED BLOOD COUNT 3.84 10^6/ul (4.70-6.10); RED CELL DISTRIBUTION WIDTH 17.9 % (11.5-14.5); UNCORRECTED WBC 5.6 10^3/ul (4.8-10.8); WHITE BLOOD COUNT 5.6 10^3/ul (4.8-10.8)
[2016-10-14 07:24] LABS: ALBUMIN 3.8 g/dl (3.3-4.9); POTASSIUM 4.2 mmol/L (3.5-5.1)
[2016-10-14 07:27] LABS: ALBUMIN/GLOBULIN RATIO 1.08; BILIRUBIN,INDIRECT 1.7 mg/dl (0-1.1); BILIRUBIN,TOTAL 1.7 mg/dl (0.2-1.3); CALCIUM 8.6 mg/dl (8.4-10.2); CREATININE 0.92 mg/dl (0.61-1.24); TOTAL PROTEIN 7.3 g/dl (6.1-8.1)
[2016-10-14 07:28] LABS: CONDITION 1; LH ANALYZER COMMENTS 1
[2016-10-14] MEDS: POLYETHYLENE GLYCOL 17 GM PACKET PO SCH (08:52)
[2016-10-14] MEDS: INSULIN ASPART [NOVOLOG] 3 ML PEN SC SCH ×4 (08:52→20:42)
[2016-10-14] MEDS: AMIODARONE 200 MG TAB PO SCH ×2 (08:53→20:41)
[2016-10-14] MEDS: METOPROLOL 50 MG TAB PO SCH ×2 (08:53→20:40)
[2016-10-14] MEDS: APIXABAN 5 MG TABLET PO SCH ×2 (08:53→20:40)
[2016-10-14] MEDS: FOLIC ACID 1 MG TAB PO SCH (08:53)
[2016-10-14] MEDS: FUROSEMIDE 40 MG TAB PO SCH (08:54)
[2016-10-14] MEDS: FERROUS SULFATE (EC) 325 MG TAB PO SCH (08:54)
[2016-10-14] MEDS: HALOPERIDOL 1 MG TAB PO SCH ×2 (08:54→20:40)
[2016-10-14] MEDS: FAMOTIDINE 20 MG TAB PO SCH ×2 (08:54→20:41)
[2016-10-14] MEDS: LOSARTAN 25 MG TAB PO SCH (08:56)
--- NOTE | 2016-10-14 10:09 | CONS ---
Date/Time of Note Date/Time of Note DATE: 10/14/16 TIME: 10:07 Assessment/Plan Assessment/Plan Additional Assessment/Plan Atrial fibrillation with rapid ventricular rates, improved MR/TR Pulmonary HTN Acute decompensated valvular and diastolic congestive heart failure Alcohol abuse Liver cirrhosis -Heart rate trend overall controlled, started Aldactone in addition to Lasix for diuresis and given liver cirrhosis. Consultation Date/Type/Reason Admit Date/Time Oct 12, 2016 at 12:48 Type of Consultation: cv 24 HR Interval Summary Free Text/Dictation Patient denies shortness of breath or chest pain or palpitations Exam/Review of Systems Vital Signs Vitals Vital Signs Date Time Temp Pulse Resp B/P Pulse Ox O2 Delivery O2 Flow Rate FiO2 10/14/16 08:39 80 10/14/16 08:00 98.6 20 126/84 97 10/14/16 08:00 Nasal Cannula 2.0 Intake and Output 10/13/16 10/13/16 10/14/16 15:00 23:00 07:00 Intake Total 1550 ml Balance 1550 ml Exam No apparent distress Constitutional: alert, obese, oriented Head: normocephalic Neck: supple Respiratory: other (course breath sounds bilaterally, no wheezing) Cardiovascular: irregular rhythm, other (S1-S2 heard) Gastrointestinal: bowel sounds, distended, non-tender, soft Extremities: edema (trace) Results Result Diagram: 10/14/16 0545 10/14/16 0545 Results 24 hrs Laboratory Tests Test 10/13/16 11:53 10/13/16 12:25 10/13/16 18:00 10/13/16 20:28 Bedside Glucose 99 125 150 Ammonia 11 Test 10/14/16 05:45 10/14/16 08:24 Alanine Aminotransferase (ALT/SGPT) 35 Albumin 3.8 Albumin/Globulin Ratio 1.08 Alkaline Phosphatase 80 Anion Gap 15 Aspartate Amino Transf (AST/SGOT) 24 Basophils # 0.0 Basophils % 0.3 Blood Morphology Comment Blood Urea Nitrogen 14 Calcium Level 8.6 Carbon Dioxide Level 29 Chloride Level 99 Creatinine 0.92 Direct Bilirubin 0.00 Eosinophils # 0.2 Eosinophils % 2.8 Globulin 3.50 H Glucose Level 102 Hematocrit 34.3 L Hemoglobin 11.0 L Indirect Bilirubin 1.7 H Lymphocytes # 0.8 Lymphocytes % 14.4 L Magnesium Level 1.8 Mean Corpuscular Hemoglobin 28.6 L Mean Corpuscular Hemoglobin Concent 32.0 Mean Corpuscular Volume 89.4 Mean Platelet Volume 9.0 Monocytes # 0.6 Monocytes % 10.9 Neutrophils # 4.0 Neutrophils % 71.6 Nucleated Red Blood Cells # 0.0 Nucleated Red Blood Cells % 0.0 Platelet Count 170 # Potassium Level 4.2 Red Blood Count 3.84 L Red Cell Distribution Width 17.9 H Sodium Level 139 Total Bilirubin 1.7 H Total Protein 7.3 White Blood Count 5.6 Bedside Glucose 270 H Medications Medications Current Medications Ondansetron HCl (Zofran Inj) 4 mg Q6H PRN IV NAUSEA AND/OR VOMITING; Start at 14:30 Nitroglycerin (Nitroglycerin (Sl Tab) 0.4 Mg) 1 tab Q5M PRN SL CHEST PAIN; Start 10/12/16 at 14:30 Acetaminophen (Tylenol Tab) 650 mg Q6H PRN PO PAIN LEVEL 1-3 OR FEVER Last administered on 10/13/16at 14:54; Admin Dose 650 MG; Start 10/12/16 at 14:30 Morphine Sulfate (morphine) 2 mg Q4H PRN IV PAIN LEVEL 7-10 Last administered on 10/13/16at 10:23; Admin Dose 2 MG; Start 10/12/16 at 14:30 Docusate Sodium (Colace) 100 mg Q12H PRN PO CONSTIPATION; Start 10/12/16 at 14 :30 Famotidine (Pepcid) 20 mg Q12 PO Last administered on 10/14/16 08:54; Admin Dose 20 MG; Start 10/12/16 at 21:00 Amiodarone HCl (Cordarone) 200 mg BID PO Last administered on 10/14/16 08:53 ; Admin Dose 200 MG; Start 10/12/16 at 21:00 Apixaban (Eliquis) 5 mg BID PO Last administered on 10/14/16 08:53; Admin Dose 5 MG; Start 10/12/16 at 21:00 Digoxin (Digoxin) 0.125 mg DAILY@13 PO Last administered on 10/13/16 13:03; Admin Dose 0.125 MG; Start 10/13/16 at 13:00 Ferrous Sulfate (Ferrous Sulfate (Ec)) 325 mg DAILY PO Last administered on 12/ 30/16at 08:54; Admin Dose 325 MG; Start 10/13/16 at 09:00 Folic Acid (Folic Acid) 1 mg DAILY PO Last administered on 10/14/16at 08:53; Admin Dose 1 MG; Start 10/13/16 at 09:00 Furosemide (Lasix) 40 mg DAILY PO Last administered on 10/14/16 08:54; Admin Dose 40 MG; Start 10/13/16 at 09:00 Losartan Potassium (Cozaar) 25 mg DAILY PO Last administered on 10/14/16at 08: 56; Admin Dose 25 MG; Start 10/13/16 at 09:00 Metoprolol Tartrate (Lopressor) 50 mg BID PO Last administered on 10/14/16 08 :53; Admin Dose 50 MG; Start 10/12/16 at 21:00 Pantoprazole (Protonix Tab) 40 mg DAILY@06 PO Last administered on 10/14/16at 05:32; Admin Dose 40 MG; Start 10/13/16 at 06:00 Polyethylene Glycol (Miralax) 17 gm DAILY PO Last administered on 10/14/16at 08 :52; Admin Dose 17 GM; Start 10/13/16 at 09:00 Diagnostic Test (Pha) (Accucheck) 1 ea 02 XX ; Start 10/13/16 at 02:00 Miscellaneous Information 1 ea NOTE XX ; Start 10/12/16 at 15:00 Glucose (Glutose) 15 gm Q15M PRN PO DECREASED GLUCOSE; Start 10/12/16 at 15:00 Glucose (Glutose) 22.5 gm Q15M PRN PO DECREASED GLUCOSE; Start 10/12/16 at 15: 00 Dextrose (D50w Syringe) 25 ml Q15M PRN IV DECREASED GLUCOSE; Start 10/12/16 at 15:00 Dextrose (D50w Syringe) 50 ml Q15M PRN IV DECREASED GLUCOSE; Start 10/12/16 at 15:00 Glucagon (Glucagen) 1 mg Q15M PRN IM DECREASED GLUCOSE; Start 10/12/16 at 15: 00 Glucose (Glutose) 15 gm Q15M PRN BUCCAL DECREASED GLUCOSE; Start 10/12/16 at 15:00 Haloperidol (Haldol) 2 mg BID PO Last administered on 10/14/16 08:54; Admin Dose 2 MG; Start 10/13/16 at 13:30 Diphenhydramine HCl (Benadryl) 50 mg Q6H PRN PO ALLERGIC REACTION; Start 10/13 at 13:30 Lorazepam (Ativan) 2 mg Q8H PRN IV AGITATION/ANXIETY; Start 10/13/16 at 13:30 Diltiazem HCl (Cardizem) 30 mg Q8H PRN PO hr>130 sustained; Start 10/13/16 at 23:00 Hans Marrero DO Oct 14, 2016 10:09
[2016-10-14] MEDS ORDERED: DILT30TA30 PO (10:57)
[2016-10-14] MEDS ORDERED: SPIR25TA76 PO (10:57)
--- NOTE | 2016-10-14 11:07 | PDOCDIS ---
Discharge Instructions DIAGNOSIS Discharge Diagnosis: Gastroenteritis, Afib, Psych CONDITION Patient Condition: Stable HOME CARE INSTRUCTIONS: Special Diet: DM DIET ACTIVITY: Activity Restrictions: Slowly Increase Activity Rest between Activity Avoid heavy lifting FOLLOW UP/APPOINTMENTS Appointments follow up with primary care physician in one week. follow up with cardiology as recommended. follow up with Psych as recommended. OTHER ORDERS: Other Orders: Psych - needs to be re-evaluated inpatient psych for the ideations Gastroenteritis - resolved - avoid ETOH AFib - take the medications as prescribed HARRY DRAKE MD Oct 14, 2016 11:07
--- NOTE | 2016-10-14 12:12 | DS ---
DATE OF ADMISSION: 10/12/2016 DATE OF DISCHARGE: 10/14/2016 DISCHARGE DIAGNOSES: 1. Abdominal pain. 2. Gastroenteritis, resolved. 3. Atrial fibrillation with rapid ventricular response, resolved. Heart rate stable. 4. End-stage liver disease with cirrhosis. 5. Aortic stenosis. 6. Coronary artery disease. 7. Anemia of chronic liver disease. 8. Essential hypertension. 9. Type 2 diabetes. 10. Dyslipidemia. 11. Hepatic encephalopathy with a global assessment of functioning 25. CONSULTANTS ON THE CASE: Cardiology as well as psychiatry. HOSPITAL COURSE: This is a 60-year-old gentleman with a past medical history of dyslipidemia, end-stage liver disease from ETOH abuse, cirrhosis, aortic stenosis, essential hypertension and type 2 diabetes who came in secondary to having abdominal pain for the past 3 days. He stated he had drank a little alcohol on the and symptoms got worse since then. The patient was admitted to telemetry for further evaluation and treatment. He initially had gone to [facility] and he was transferred here for insurance purposes. Laboratory findings had shown that his white count has been stable. H and H of 11 and 34.3 and platelets of 170. Chemistry showed a hemoglobin A1c of 7.4. Troponins were negative. Total bilirubin 1.7, indirect bilirubin 1.7, AST of 24, ALT of 35, alkaline phosphatase of 80. BMP within normal limits. Toxicology showed digoxin less than 0.04. IMAGING: His chest x-ray showin. Mild atelectasis at the lung bases posteriorly. 2. Cardiomegaly and atherosclerosis. 3. Small bilateral pleural effusions, had a 2D echocardiogram showin. Normal left ventricular systolic function, normal left ventricular cavity size, normal left ventricular wall thickness, ejection fraction visually estimated at 55%, abnormal diastolic function. 2. Mild enlargement of right ventricle, mild right ventricular hypokinesis. 3. There is mild enlargement of left atrium. 4. There is severe enlargement of right atrium. 5. Moderate mitral valve regurgitation. The regurgitation changes which may underestimates the severity of mitral regurgitation. 6. Aortic sclerosis without stenosis, trace aortic valve regurgitation. 7. Estimated peak PA systolic pressure 92 mmHg. There is moderate tricuspid regurgitation. 8. Normal pericardium with no significant pericardial effusion. Otherwise, patient was evaluated by psychiatry, recommended inpatient facility at this time and an evaluation by PET team and would possibly need to be transferred to psych facility. So, he is medically cleared at this time. Otherwise, no other acute complaints. Spoke to him about the care plan. He does not understand the reason for psych facility, but secondary to his auditory and visual hallucinations as well as homicidal ideations towards his family he is recommending time to be evaluated as well as changing drugs regimen. DISPOSITION: To inpatient psych. CONDITION: Stable. DISCHARGE MEDICATIONS: Will include: 1. Cardizem 30 mg p.o. q.8h. 2. Aldactone 12.5 mg p.o. b.i.d. 3. Amiodarone 200 mg p.o. b.i.d. 4. Eliquis 5 mg p.o. b.i.d. 5. Digoxin 0.125 mg p.o. daily. 6. Colace 100 mg p.o. b.i.d. p.r.n. for constipation. 7. Ferrous sulfate 325 mg p.o. daily. 8. Folic acid 1 mg p.o. daily. 9. Lasix 20 mg p.o. daily. 10. Losartan 25 mg p.o. daily. 11. Metformin 1000 mg p.o. b.i.d. with meals. 12. Lopressor 50 mg p.o. b.i.d. 13. Protonix 40 mg p.o. daily. 14. MiraLax 17 g p.o. p.r.n. for constipation. FOLLOWUP: The patient will follow up with inpatient psych facility. Will follow up with cardiology and primary care physician within a couple weeks. Patient and consultants were made aware of this and agree with the plan. Coordination of discharge greater than 35 minutes. Dictated By: HARRY ALAN/RONNIE Conf#: [id number] DID#: [id number] SOCO
[2016-10-14] MEDS: DIGOXIN 0.125 MG TAB PO SCH (12:17)
[2016-10-15] VITALS (12 sets, daily range): BP systolic 128–158; BP diastolic 77–102; PULSE 81–105; RESP 18–20
[2016-10-15] MEDS: ACCUCHECK XX SCH (02:00)
[2016-10-15] MEDS: PANTOPRAZOLE (EC) 40 MG TAB PO SCH (06:04)
[2016-10-15] MEDS: SPIRONOLACTONE 25 MG TAB PO SCH ×2 (06:04→17:41)
[2016-10-15] MEDS: INSULIN ASPART [NOVOLOG] 3 ML PEN SC SCH ×4 (07:35→21:00)
[2016-10-15] MEDS: HALOPERIDOL 1 MG TAB PO SCH ×2 (08:13→21:23)
[2016-10-15] MEDS: APIXABAN 5 MG TABLET PO SCH ×2 (08:14→21:23)
[2016-10-15] MEDS: FAMOTIDINE 20 MG TAB PO SCH ×2 (08:14→21:24)
[2016-10-15] MEDS: FOLIC ACID 1 MG TAB PO SCH (08:14)
[2016-10-15] MEDS: FERROUS SULFATE (EC) 325 MG TAB PO SCH (08:14)
[2016-10-15] MEDS: FUROSEMIDE 40 MG TAB PO SCH (08:14)
[2016-10-15] MEDS: LOSARTAN 25 MG TAB PO SCH (08:15)
[2016-10-15] MEDS: POLYETHYLENE GLYCOL 17 GM PACKET PO SCH (08:15)
[2016-10-15] MEDS: METOPROLOL 50 MG TAB PO SCH ×2 (08:15→21:24)
[2016-10-15] MEDS: AMIODARONE 200 MG TAB PO SCH ×2 (08:15→21:23)
[2016-10-15 10:02] LABS: AADO2 Arterial 34.7 mmHg (7.0-24.0); Allen Test ACCEPTAB; Arterial Base Excess 1.4 mmol/L (-3.0-3); Arterial COHb 0.3 % (0.0-3.0); Arterial Fraction of Oxyhgb 90.3 % (93.0-99.0); Arterial HCO3 26.3 mmol/L (22.0-26.0); Arterial MetHb 0.1 % (0.0-1.5); Arterial Total Hemglobin 12.8 g/dl (12.0-18.0); MODE ROOM AIR
--- NOTE | 2016-10-15 10:18 | DS ---
DATE OF ADMISSION: 10/12/2016 DATE OF DISCHARGE: 10/15/2016 ADDENDUM DISCHARGE DIAGNOSES: 1. Abdominal pain, secondary to gastroenteritis, resolved. 2. Atrial fibrillation with rapid ventricular response, resolved. Heart rate stable. 3. End-stage liver disease, secondary to cirrhosis. 4. Aortic stenosis. 5. Coronary artery disease. 6. Anemia of chronic liver disease. 7. Essential hypertension. 8. Type 2 diabetes. 9. Dyslipidemia. 10. Hepatic encephalopathy, with a global assessment of functioning 25, with psychiatric manifestat ions. HOSPITAL COURSE: The patient remained here because of placement issues, awaiting psych facility nina t will accept this patient at this time. He still complains of having difficulty sleeping, because of all these continuing thoughts of hurting people as well as himself. I spoke to him at length abo ut his breathing. We will obtain an ABG today, on room air, to see if we can wean him off O2. Othe rwise, no other acute complaints at this time. I spoke to him at length about the care plan. DISPOSITION: Awaiting an inpatient psych. Dictated By: HARRY ALAN/RONNIE Conf#: [id number] DID#: [id number]
[2016-10-15] MEDS: DIGOXIN 0.125 MG TAB PO SCH (13:27)
[2016-10-16] VITALS (12 sets, daily range): BP systolic 137–165; BP diastolic 47–103; PULSE 96–150; RESP 17–22
[2016-10-16] MEDS: ACETAMINOPHEN 325 MG TAB PO PRN ×3 (00:46→21:46)
[2016-10-16] MEDS: LEVOFLOXACIN 750MG/D5W (PMX) 150 ML IVPB SCH (00:46)
[2016-10-16] MEDS: ACCUCHECK XX SCH (02:00)
[2016-10-16] MEDS: metroNIDAZOLE 500 MG/NS (PMX) 100 ML IVPB SCH ×3 (06:18→21:51)
[2016-10-16] MEDS: PANTOPRAZOLE (EC) 40 MG TAB PO SCH (06:19)
[2016-10-16] MEDS: SPIRONOLACTONE 25 MG TAB PO SCH ×2 (06:19→18:13)
[2016-10-16] MEDS: INSULIN ASPART [NOVOLOG] 3 ML PEN SC SCH ×4 (07:39→21:00)
[2016-10-16] MEDS: FAMOTIDINE 20 MG TAB PO SCH ×2 (08:17→21:46)
[2016-10-16] MEDS: HALOPERIDOL 1 MG TAB PO SCH ×2 (08:17→21:47)
[2016-10-16] MEDS: FERROUS SULFATE (EC) 325 MG TAB PO SCH (08:17)
[2016-10-16] MEDS: FOLIC ACID 1 MG TAB PO SCH (08:18)
[2016-10-16] MEDS: AMIODARONE 200 MG TAB PO SCH ×2 (08:18→21:47)
[2016-10-16] MEDS: LOSARTAN 25 MG TAB PO SCH (08:18)
[2016-10-16] MEDS: APIXABAN 5 MG TABLET PO SCH ×2 (08:19→21:47)
[2016-10-16] MEDS: METOPROLOL 50 MG TAB PO SCH ×2 (08:19→21:47)
[2016-10-16] MEDS: FUROSEMIDE 40 MG TAB PO SCH (08:19)
[2016-10-16] MEDS: POLYETHYLENE GLYCOL 17 GM PACKET PO SCH (08:20)
--- NOTE | 2016-10-16 09:36 | PN ---
Date/Time of Note Date/Time of Note DATE: 10/16/16 TIME: 09:30 Assessment/Plan VTE Prophylaxis VTE Prophylaxis Intervention: other (eliquis) Lines/Catheters IV Catheter Type (from Nrsg): Saline Lock Assessment/Plan Assessment/Plan 60 yo male with a past medical history of dyslipidemia, end stage liver disease from ETOH abuse, cirrhosis, aortic stenosis, essential hypertension, type II DM , who came in 2/2 to having abdominal pain for the past three days. 1. Abd pain - viral vs bacterial gastroenteritis - improving with IV antibiotics 2. Afib - intermittent RVR - but elevated rate - dig low - appreciate cardio recs, ECHO EF 55%, diastolic dysfunction, rate better controlled - on Eliquis [id number] of 4 3. Hypoxemic respiratory failure - acute - will consult pulm, ? 2/2 pulm HTN 4. ESLD - cirrhosis - hepatic adjust medications 5. /CAD - continue with aspirin 6. Anemia of chronic liver disease - continue with iron supplementation 7. Essential HTN - continue with home medications 8. Type II DM - uncontrolled - hgba1c 7.4, ISS, start lantus/ISS 9. Dyslipidemia - continue with statin 10. GI ppx - pepcid 11. DVT ppx - heparin dispo - f/u recs, pulm consult for pulm htn - respiratory distress this progress note took greater than 30 minutes to complete Subjective 24 Hr Interval Summary Free Text/Dictation Patient is doing better today. I spoke to him in regards to hearing voices, he understood. He states they are not currently present. He also understands the results of ABG from yesterday. Low PO2 requiring oxygen supplementation. 15 minutes spent. Exam/Review of Systems Vital Signs Vitals Vital Signs Date Time Temp Pulse Resp B/P Pulse Ox O2 Delivery O2 Flow Rate FiO2 10/16/16 08:34 129 10/16/16 07:39 98.3 19 144/47 94 10/16/16 07:32 Nasal Cannula 2.0 Intake and Output 10/15/16 10/15/16 10/16/16 15:00 23:00 07:00 Intake Total 800 ml 750 ml Output Total 850 ml Balance 800 ml -100 ml Exam Gen Mary Lou: mild distress 2/2 respiratory, AAOx4 HEENT: NC/AT, JOS - left, EOMI, no pharyngeal erythema, no tonsillar exudates , no lymphadenopathy, no JVD, no carotid bruits NECK: supple, no thyromegaly THORAX: symmetrical, no obvious deformities CV: S1S2, tachycardiac - irregularly irregular, II/ - systolic murmur Lungs: bibasilar crackles, no wheezing - mild improvement Abd: soft, tenderness to deep palpation/ND, hyperactive +BS, no rebound, no guarding, hepatomegaly 2 cm below costophrenic angle EXT: trace bilateral lower extremity edema, no ecchymosis, no clubbing, FROM Neuro: CN II-XII grossly intact, no focal deficits Psych: anxious Skin: C/D/I Results Result Diagram: 10/14/16 0545 10/14/16 0545 Results 24 hrs Laboratory Tests Test 10/15/16 11:31 10/15/16 17:36 10/15/16 21:19 10/16/16 07:34 Bedside Glucose 161 128 122 115 Medications Medications Current Medications Ondansetron HCl (Zofran Inj) 4 mg Q6H PRN IV NAUSEA AND/OR VOMITING; Start at 14:30 Nitroglycerin (Nitroglycerin (Sl Tab) 0.4 Mg) 1 tab Q5M PRN SL CHEST PAIN; Start 10/12/16 at 14:30 Acetaminophen (Tylenol Tab) 650 mg Q6H PRN PO PAIN LEVEL 1-3 OR FEVER Last administered on 10/16/16 06:24; Admin Dose 650 MG; Start 10/12/16 at 14:30 Morphine Sulfate (morphine) 2 mg Q4H PRN IV PAIN LEVEL 7-10 Last administered on 10/13/16at 10:23; Admin Dose 2 MG; Start 10/12/16 at 14:30 Docusate Sodium (Colace) 100 mg Q12H PRN PO CONSTIPATION; Start 10/12/16 at 14 :30 Famotidine (Pepcid) 20 mg Q12 PO Last administered on 10/16/16 08:17; Admin Dose 20 MG; Start 10/12/16 at 21:00 Amiodarone HCl (Cordarone) 200 mg BID PO Last administered on 10/16/16 08:18; Admin Dose 200 MG; Start 10/12/16 at 21:00 Apixaban (Eliquis) 5 mg BID PO Last administered on 10/16/16 08:19; Admin Dose 5 MG; Start 10/12/16 at 21:00 Digoxin (Digoxin) 0.125 mg DAILY@13 PO Last administered on 10/15/16at 13:27; Admin Dose 0.125 MG; Start 10/13/16 at 13:00 Ferrous Sulfate (Ferrous Sulfate (Ec)) 325 mg DAILY PO Last administered on 10/16 08:17; Admin Dose 325 MG; Start 10/13/16 at 09:00 Folic Acid (Folic Acid) 1 mg DAILY PO Last administered on 10/16/16 08:18; Admin Dose 1 MG; Start 10/13/16 at 09:00 Furosemide (Lasix) 40 mg DAILY PO Last administered on 10/16/16 08:19; Admin Dose 40 MG; Start 10/13/16 at 09:00 Losartan Potassium (Cozaar) 25 mg DAILY PO Last administered on 10/16/16 08:18 ; Admin Dose 25 MG; Start 10/13/16 at 09:00 Metoprolol Tartrate (Lopressor) 50 mg BID PO Last administered on 10/16/16 08: 19; Admin Dose 50 MG; Start 10/12/16 at 21:00 Pantoprazole (Protonix Tab) 40 mg DAILY@06 PO Last administered on 10/16/16 06: 19; Admin Dose 40 MG; Start 10/13/16 at 06:00 Polyethylene Glycol (Miralax) 17 gm DAILY PO Last administered on 10/16/16 08: 20; Admin Dose 17 GM; Start 10/13/16 at 09:00 Diagnostic Test (Pha) (Accucheck) 1 ea 02 XX ; Start 10/13/16 at 02:00 Miscellaneous Information 1 ea NOTE XX ; Start 10/12/16 at 15:00 Glucose (Glutose) 15 gm Q15M PRN PO DECREASED GLUCOSE; Start 10/12/16 at 15:00 Glucose (Glutose) 22.5 gm Q15M PRN PO DECREASED GLUCOSE; Start 10/12/16 at 15: 00 Dextrose (D50w Syringe) 25 ml Q15M PRN IV DECREASED GLUCOSE; Start 10/12/16 at 15:00 Dextrose (D50w Syringe) 50 ml Q15M PRN IV DECREASED GLUCOSE; Start 10/12/16 at 15:00 Glucagon (Glucagen) 1 mg Q15M PRN IM DECREASED GLUCOSE; Start 10/12/16 at 15: 00 Glucose (Glutose) 15 gm Q15M PRN BUCCAL DECREASED GLUCOSE; Start 10/12/16 at 15:00 Haloperidol (Haldol) 2 mg BID PO Last administered on 10/16/16 08:17; Admin Dose 2 MG; Start 10/13/16 at 13:30 Diphenhydramine HCl (Benadryl) 50 mg Q6H PRN PO ALLERGIC REACTION; Start 10/13 at 13:30 Lorazepam (Ativan) 2 mg Q8H PRN IV AGITATION/ANXIETY; Start 10/13/16 at 13:30 Diltiazem HCl 30 mg 30 mg Q8H PRN PO hr>130 sustained; Start 10/13/16 at 23:00 Levofloxacin/ Dextrose 150 ml @ 100 mls/hr Q24H IVPB Last administered on 00:46; Admin Dose 100 MLS/HR; Start 10/16/16 at 00:30 Metronidazole (Flagyl 500 Mg (Pmx)) 100 ml @ 100 mls/hr Q8 IVPB Last administered on 10/16/16 06:18; Admin Dose 100 MLS/HR; Start 10/16/16 at 06:00 HARRY DRAKE MD Oct 16, 2016 09:36
[2016-10-16 11:29] LABS: EOSINOPHILS % 0.5 % (0.0-7.0); HEMATOCRIT 37.3 % (42.0-52.0); HEMOGLOBIN 12.1 g/dl (14.0-18.0); LYMPHOCYTES # 0.3 10^3/ul (0.8-2.9); LYMPHOCYTES % 4.5 % (15.0-51.0); MEAN CORPUSCULAR HEMOGLOBIN 28.7 pg (29.0-33.0); MEAN CORPUSCULAR HGB CONC 32.4 g/dl (32.0-37.0); MEAN CORPUSCULAR VOLUME 88.6 fl (82.0-101.0); MEAN PLATELET VOLUME 8.7 fl (7.4-10.4); MONOCYTE # 0.6 10^3/ul (0.3-0.9); MONOCYTES % 9.5 % (0.0-11.0); NEUTROPHIL # 5.4 10^3/ul (1.6-7.5); NEUTROPHILS % 85.5 % (39.0-77.0); PLATELET COUNT 158 10^3/UL (140-440); RED BLOOD COUNT 4.21 10^6/ul (4.70-6.10); RED CELL DISTRIBUTION WIDTH 18.7 % (11.5-14.5); UNCORRECTED WBC 6.3 10^3/ul (4.8-10.8); WHITE BLOOD COUNT 6.3 10^3/ul (4.8-10.8)
[2016-10-16 11:33] LABS: CONDITION 1; LH ANALYZER COMMENTS 1
[2016-10-16 11:36] LABS: POTASSIUM 4.8 mmol/L (3.5-5.1)
[2016-10-16 11:39] LABS: CREATININE 0.94 mg/dl (0.61-1.24)
[2016-10-16 11:40] LABS: CALCIUM 8.7 mg/dl (8.4-10.2)
--- NOTE | 2016-10-16 12:05 | CONS ---
Date/Time of Note Date/Time of Note DATE: 10/16/16 TIME: 12:02 Assessment/Plan Assessment/Plan Additional Assessment/Plan Atrial fibrillation with rapid ventricular rates, improved MR/TR Pulmonary HTN Acute decompensated valvular and diastolic congestive heart failure, improved Alcohol abuse Liver cirrhosis -Patient with brief episodes of rapid ventricular rates, noted more this morning , if continuous, would increase dose of Lopressor. Consultation Date/Type/Reason Admit Date/Time Oct 12, 2016 at 12:48 Type of Consultation: cv 24 HR Interval Summary Free Text/Dictation Patient denies chest pain or shortness of breath or palpitations Exam/Review of Systems Vital Signs Vitals Vital Signs Date Time Temp Pulse Resp B/P Pulse Ox O2 Delivery O2 Flow Rate FiO2 10/16/16 11:34 98.6 100 20 165/103 98 10/16/16 07:32 Nasal Cannula 2.0 Intake and Output 10/15/16 10/15/16 10/16/16 15:00 23:00 07:00 Intake Total 800 ml 750 ml Output Total 850 ml Balance 800 ml -100 ml Exam No apparent distress Constitutional: alert, obese, oriented Head: normocephalic Neck: supple Respiratory: other (course breath sounds bilaterally, no wheezing) Cardiovascular: irregular rhythm, other (S1 and S2 heard) Gastrointestinal: bowel sounds, distended, non-tender, other (no guarding), soft Extremities: edema (trace) Results Result Diagram: 10/16/16 1033 10/14/16 0545 Results 24 hrs Laboratory Tests Test 10/15/16 17:36 10/15/16 21:19 10/16/16 07:34 10/16/16 10:33 Bedside Glucose 128 122 115 Basophils # 0.0 Basophils % 0.0 Blood Morphology Comment Eosinophils # 0.0 Eosinophils % 0.5 Hematocrit 37.3 L Hemoglobin 12.1 L Lymphocytes # 0.3 L Lymphocytes % 4.5 L Mean Corpuscular Hemoglobin 28.7 L Mean Corpuscular Hemoglobin Concent 32.4 Mean Corpuscular Volume 88.6 Mean Platelet Volume 8.7 Monocytes # 0.6 Monocytes % 9.5 Neutrophils # 5.4 Neutrophils % 85.5 H Nucleated Red Blood Cells # 0.0 Nucleated Red Blood Cells % 0.0 Platelet Count 158 Red Blood Count 4.21 L Red Cell Distribution Width 18.7 H White Blood Count 6.3 Test 10/16/16 11:23 Bedside Glucose 267 H Medications Medications Current Medications Ondansetron HCl (Zofran Inj) 4 mg Q6H PRN IV NAUSEA AND/OR VOMITING; Start at 14:30 Nitroglycerin (Nitroglycerin (Sl Tab) 0.4 Mg) 1 tab Q5M PRN SL CHEST PAIN; Start 10/12/16 at 14:30 Acetaminophen (Tylenol Tab) 650 mg Q6H PRN PO PAIN LEVEL 1-3 OR FEVER Last administered on 10/16/16 06:24; Admin Dose 650 MG; Start 10/12/16 at 14:30 Morphine Sulfate (morphine) 2 mg Q4H PRN IV PAIN LEVEL 7-10 Last administered on 10/13/16at 10:23; Admin Dose 2 MG; Start 10/12/16 at 14:30 Docusate Sodium (Colace) 100 mg Q12H PRN PO CONSTIPATION; Start 10/12/16 at 14 :30 Famotidine (Pepcid) 20 mg Q12 PO Last administered on 10/16/16 08:17; Admin Dose 20 MG; Start 10/12/16 at 21:00 Amiodarone HCl (Cordarone) 200 mg BID PO Last administered on 10/16/16 08:18; Admin Dose 200 MG; Start 10/12/16 at 21:00 Apixaban (Eliquis) 5 mg BID PO Last administered on 10/16/16 08:19; Admin Dose 5 MG; Start 10/12/16 at 21:00 Digoxin (Digoxin) 0.125 mg DAILY@13 PO Last administered on 10/15/16at 13:27; Admin Dose 0.125 MG; Start 10/13/16 at 13:00 Ferrous Sulfate (Ferrous Sulfate (Ec)) 325 mg DAILY PO Last administered on 10/16 08:17; Admin Dose 325 MG; Start 10/13/16 at 09:00 Folic Acid (Folic Acid) 1 mg DAILY PO Last administered on 10/16/16 08:18; Admin Dose 1 MG; Start 10/13/16 at 09:00 Furosemide (Lasix) 40 mg DAILY PO Last administered on 10/16/16 08:19; Admin Dose 40 MG; Start 10/13/16 at 09:00 Losartan Potassium (Cozaar) 25 mg DAILY PO Last administered on 10/16/16 08:18 ; Admin Dose 25 MG; Start 10/13/16 at 09:00 Metoprolol Tartrate (Lopressor) 50 mg BID PO Last administered on 10/16/16 08: 19; Admin Dose 50 MG; Start 10/12/16 at 21:00 Pantoprazole (Protonix Tab) 40 mg DAILY@06 PO Last administered on 10/16/16 06: 19; Admin Dose 40 MG; Start 10/13/16 at 06:00 Polyethylene Glycol (Miralax) 17 gm DAILY PO Last administered on 10/16/16 08: 20; Admin Dose 17 GM; Start 10/13/16 at 09:00 Diagnostic Test (Pha) (Accucheck) 1 ea 02 XX ; Start 10/13/16 at 02:00 Miscellaneous Information 1 ea NOTE XX ; Start 10/12/16 at 15:00 Glucose (Glutose) 15 gm Q15M PRN PO DECREASED GLUCOSE; Start 10/12/16 at 15:00 Glucose (Glutose) 22.5 gm Q15M PRN PO DECREASED GLUCOSE; Start 10/12/16 at 15: 00 Dextrose (D50w Syringe) 25 ml Q15M PRN IV DECREASED GLUCOSE; Start 10/12/16 at 15:00 Dextrose (D50w Syringe) 50 ml Q15M PRN IV DECREASED GLUCOSE; Start 10/12/16 at 15:00 Glucagon (Glucagen) 1 mg Q15M PRN IM DECREASED GLUCOSE; Start 10/12/16 at 15: 00 Glucose (Glutose) 15 gm Q15M PRN BUCCAL DECREASED GLUCOSE; Start 10/12/16 at 15:00 Haloperidol (Haldol) 2 mg BID PO Last administered on 10/16/16 08:17; Admin Dose 2 MG; Start 10/13/16 at 13:30 Diphenhydramine HCl (Benadryl) 50 mg Q6H PRN PO ALLERGIC REACTION; Start 10/13 at 13:30 Lorazepam (Ativan) 2 mg Q8H PRN IV AGITATION/ANXIETY; Start 10/13/16 at 13:30 Diltiazem HCl 30 mg 30 mg Q8H PRN PO hr>130 sustained; Start 10/13/16 at 23:00 Levofloxacin/ Dextrose 150 ml @ 100 mls/hr Q24H IVPB Last administered on 00:46; Admin Dose 100 MLS/HR; Start 10/16/16 at 00:30 Metronidazole (Flagyl 500 Mg (Pmx)) 100 ml @ 100 mls/hr Q8 IVPB Last administered on 10/16/16 06:18; Admin Dose 100 MLS/HR; Start 10/16/16 at 06:00 Hans Marrero DO Oct 16, 2016 12:05
--- NOTE | 2016-10-16 12:28 | PSY ---
Date/Time of Note Date/Time of Note DATE: 10/16/16 TIME: 12:18 Psychiatric Subjective Eval Consent Pt consented to telemedicine: Yes Subjective Evaluation Patient location: inpatient Chief Complaint: "Hearing vocies" Reason for consult: d/w Dr Bryan - pt c/o AH and VH, expressed SI History of present illness patient is a 60 yo male with multiple medical problems admitted to the medical floor due to GI and respiratory problems while on the unit he had a psychiatric consultation done by Dr. Acosta on 10/13 due to HI and she recommended psych admission due to homicidal thoughts against his family and some disorganization possibly due to delirium. However for the past 48 hr patient has denied any SI or HI, according to nursing staff he has been very coherent and logical, he has had his family , and son visit him and all went well, with very friendly interactions. Patient does not remember any si or hi, states that he has been anxious because he needs to work but not depressed, no hx of si or hi, no past admission , no past psych [place], he feels safe to go home. Past psychiatric history none Hospitalization: yes Family History denies Medical history as per record Allergies: Coded Allergies: No Known Allergy (Unverified , 10/12/16) Substance Abuse Substance use: No known substance abuse Social History Marital status: Level of education: 6th grade DPA/Conservatorship: No Occupation/Custodial: unemployed Psychiatric Objective Eval Review of Systems: Review of Systems: Not Applicable Physical Examination: Physical Examination: Applicable Sleep: Adequate Appetite: Adequate Energy: Decreased Interest: Adequate Mental Status Examination: Appearance: Groomed Eye Contact: Good Psychomotor Activity: Normal Behavior: Friendly, Cooperative Speech: Clear AFFECT: Appropriate Mood: Anxious Though Process: Linear Thought Content: Normal Suicidal: No Homicidal: No On 72 hour hold: No Orientation: x3 Cognition: Alert Insight: Intact Judgement: Intact Attention Span: Intact Laboratory Results Laboratory Tests Test 10/14/16 17:18 10/14/16 20:28 10/15/16 07:34 10/15/16 09:30 Bedside Glucose 147mg/dL 186mg/dL 98mg/dL Arterial Blood HCO3 26.3mmol/L Arterial Blood Base Excess 1.4mmol/L Arterial Blood Oxygen Saturation 90.7mmHG Kevin Test ACCEPTAB Arterial Blood Gas Puncture Site Right Radial Arterial Blood Carboxyhemoglobin 0.3% Arterial Blood Date Drawn 10/15/2016 9:42:20 AM Arterial Blood Methemoglobin 0.1% Arterial Blood pCO2 (Temp correct) 42.5mmhg Arterial Blood pH (Temp corrected) 7.409 Arterial Blood pO2 (Temp corrected) 64.1mmHG Blood Gas A-a O2 Differential 34.7mmHg Blood Gas Actual Respiration Rate 20 Blood Gas Critical Value Read Back KRISTI MATHEWS Blood Gas Modality ROOM AIR Blood Gas Notified Time 10/15/2016 10:01:30 AM Blood Gas Notified Whom KATERINE RT Blood Gas Specimen Source Blood arterial Blood Gas Temperature 37.0C FiO2 21.0% Oxyhemoglobin Percent 90.3% Total Hemoglobin 12.8g/dl Test 10/15/16 11:31 10/15/16 17:36 10/15/16 21:19 10/16/16 07:34 Bedside Glucose 161mg/dL 128mg/dL 122mg/dL 115mg/dL Test 10/16/16 10:33 10/16/16 11:23 Anion Gap 16 Basophils # 0.010^3/ul Basophils % 0.0% Blood Morphology Comment Blood Urea Nitrogen 13mg/dl Calcium Level 8.7mg/dl Carbon Dioxide Level 30mmol/L Chloride Level 95mmol/L Creatinine 0.94mg/dl Eosinophils # 0.010^3/ul Eosinophils % 0.5% Glucose Level 267mg/dl Hematocrit 37.3% Hemoglobin 12.1g/dl Lymphocytes # 0.310^3/ul Lymphocytes % 4.5% Mean Corpuscular Hemoglobin 28.7pg Mean Corpuscular Hemoglobin Concent 32.4g/dl Mean Corpuscular Volume 88.6fl Mean Platelet Volume 8.7fl Monocytes # 0.610^3/ul Monocytes % 9.5% Neutrophils # 5.410^3/ul Neutrophils % 85.5% Nucleated Red Blood Cells # 0.010^3/ul Nucleated Red Blood Cells % 0.0/100WBC Platelet Count 47111^3/UL Potassium Level 4.8mmol/L Red Blood Count 4.2110^6/ul Red Cell Distribution Width 18.7% Sodium Level 136mmol/L White Blood Count 6.310^3/ul Bedside Glucose 267mg/dL Assessment and Plan Assessment/Diagnosis [place] I: delirium nos in remission anxiety do nos [place] II: deferred Recommendation/Plan Medication Management none Follow-up/Disposition In my opinion,for this patient, outpatient care is the least restrictive option. Based on available evidence, this condition CAN be safely treated at a lower level of care effective today. Patient is stable without clear and convincing evidence of imminent danger due to mental illness that require acute inpatient psychiatric care as the least restrictive alternative. patient was most likely delirious when making some homicidal threats. Please discharge patient with referral for follow up to a outpatient mental health clinic for psychotherapy [id number] Recommendation: Release Hold TJ CA MD Oct 16, 2016 12:28
[2016-10-16] MEDS: DIGOXIN 0.125 MG TAB PO SCH (14:12)
--- NOTE | 2016-10-16 18:11 | CONS ---
DATE OF ADMISSION: 10/12/2016 DATE OF CONSULTATION: REASON FOR CONSULTATION: Shortness of breath. Thank you, Dr. Bryan, for this consultation. HISTORY OF PRESENT ILLNESS: This is a 60-year-old gentleman with underlying psychiatric history, hi story of tobacco abuse, who came in with abdominal pain, atrial fibrillation with rapid ventricular response, mild dyspnea, in addition to hypoxemia. He was treated for gastroenteritis. Echocardiogr am showed severe pulmonary hypertension with moderate tricuspid regurgitation. Echocardiogram showe d preserved ejection fraction with diastolic dysfunction. PAST MEDICAL HISTORY: Psychiatric disorder, encephalopathy. MEDICATIONS: Per chart. ALLERGIES: NONE. SOCIAL HISTORY: Ex-smoker, no alcohol, no history of drug use. FAMILY HISTORY: Noncontributory. SYSTEMS REVIEW: A 12-point review of systems was negative other than that mentioned above. PHYSICAL EXAMINATION: GENERAL: Well-nourished, well-developed gentleman, comfortable at rest, no acute distress. VITAL SIGNS: Currently afebrile, pulse is 100, blood pressure 140/77, O2 saturation 96% on 2 L nasa l cannula. NECK: Supple. No JVD or lymphadenopathy. CARDIAC: S1, S2, no added sounds or murmurs. CHEST: Diminished air entry bilaterally. ABDOMEN: Obese, soft, nontender, no guarding, no rebound. EXTREMITIES: No cyanosis, clubbing, edema. NEUROLOGIC: Generalized weakness. LABORATORY DATA: Chemistry within normal limits. Arterial blood gas shows a PaO2 of 64. IMPRESSION AND PLAN: 1. Pulmonary hypertension, unclear etiology. Possibly component of obstructive sleep apnea, mild h ypoxemia. 2. Psychiatric disorder. 3. Resolved gastroenteritis. The patient will have CT angiogram to exclude pulmonary embolus. 4. Outpatient pulmonary function test. 5. Outpatient sleep study. 6. Supplemental O2. Currently not needed as PaO2 of 64 on room air. Dictated By: MELI DURANT/RONNIE Conf#: [id number] DID#: [id number]
[2016-10-16] MEDS ORDERED: SOD CHLORIDE 0.9% 100 ML ONE (23:52)
[2016-10-16] MEDS ORDERED: IOHEXOL 100 ML ONE (23:52)
[2016-10-16] MEDS ORDERED: IOHEXOL 350MG/ML 50 ML BTL ONE (23:53)
[2016-10-17] VITALS (13 sets, daily range): BP systolic 104–123; BP diastolic 66–91; PULSE 89–117; RESP 16–20
[2016-10-17] MEDS ORDERED: SOD CHLORIDE 0.9% 100 ML ONE (00:22)
[2016-10-17] MEDS ORDERED: IOHEXOL 100 ML ONE (00:23)
[2016-10-17] MEDS: ACCUCHECK XX SCH (02:00)
[2016-10-17] MEDS: LEVOFLOXACIN 750MG/D5W (PMX) 150 ML IVPB SCH (02:16)
--- NOTE | 2016-10-17 05:12 | RADRPT ---
PROCEDURE: CT pulmonary angiogram. CLINICAL INDICATION: Chest pain and shortness of breath. TECHNIQUE: CT scan of the chest and CT pulmonary angiogram was performed utilizing axial tomograp hic imaging from the thoracic inlet to the domes of the diaphragm. High-resolution thin slice coron al and sagittal imaging was obtained from the axial source images. 3-D volumetric rendered post pro cessing was performed as well. The patient was examined following the uncomplicated intravenous adm inistration of 95 cc of Omnipaque 350. The images were reviewed on a PACS workstation. The total exa m CTDI equals 119.71, 63.3, 13.83, 15.51 and the total exam DLP equals 1199.09 mGy-cm. COMPARISON: No prior studies are available for comparison. FINDINGS: The lungs demonstrate a small left and moderate right pleural effusion. There is consolidation of t he right lung base of the progress. There are scattered ground-glass opacities in the bilateral uppe r lobes. No pneumothorax is seen. No pulmonary nodules or masses are identified. There is no abnor mal interstitial thickening. The trachea and proximal bronchi are unremarkable. The visualized thyroid is unremarkable. The heart is mildly enlarged. The aorta demonstrates paige l branching pattern. The aorta is normal in caliber and contains vascular calcifications. There is no evidence of aortic dissection. There is prominence of the pulmonary veins. The central pulmonar y arteries are normal in caliber. The attenuation of the central pulmonary arteries measures 276 HU . No filling defects are identified within the proximal pulmonary arterial branches to suggest pulm onary embolism. No hilar, mediastinal, or axillary lymphadenopathy is identified. Limited evaluation of the upper abdomen is unremarkable. The osseous structures demonstrate mild de generative changes of the spine. IMPRESSION: 1. No CT evidence for pulmonary embolism. 2. Moderate right and small left pleural effusions. 3. Mild cardiomegaly and pulmonary vascular congestion. 4. Right basilar atelectasis versus pneumonitis. 5. Scattered ground-glass opacities in the bilateral upper lobes, reflecting infectious versus infl ammatory small airways disease. RPTAT: HH .Jenny Mendez MD, MD Date Time Electronically viewed and signed by .Jenny Mendez MD, on 10/17/2016 05:11 .Neida/
[2016-10-17] MEDS: metroNIDAZOLE 500 MG/NS (PMX) 100 ML IVPB SCH ×3 (05:58→21:15)
[2016-10-17] MEDS: PANTOPRAZOLE (EC) 40 MG TAB PO SCH (05:58)
[2016-10-17] MEDS: SPIRONOLACTONE 25 MG TAB PO SCH ×2 (05:58→17:43)
[2016-10-17] MEDS: ACETAMINOPHEN 325 MG TAB PO PRN ×2 (06:51→17:42)
[2016-10-17] MEDS: INSULIN ASPART [NOVOLOG] 3 ML PEN SC SCH ×4 (07:55→21:00)
[2016-10-17] MEDS: POLYETHYLENE GLYCOL 17 GM PACKET PO SCH (09:15)
[2016-10-17] MEDS: AMIODARONE 200 MG TAB PO SCH ×2 (09:16→21:14)
[2016-10-17] MEDS: FAMOTIDINE 20 MG TAB PO SCH ×2 (09:16→21:14)
[2016-10-17] MEDS: FOLIC ACID 1 MG TAB PO SCH (09:17)
[2016-10-17] MEDS: FERROUS SULFATE (EC) 325 MG TAB PO SCH (09:17)
[2016-10-17] MEDS: METOPROLOL 50 MG TAB PO SCH ×2 (09:17→21:14)
[2016-10-17] MEDS: HALOPERIDOL 1 MG TAB PO SCH ×2 (09:17→21:14)
[2016-10-17] MEDS: FUROSEMIDE 40 MG TAB PO SCH (09:17)
[2016-10-17] MEDS: LOSARTAN 25 MG TAB PO SCH (09:17)
[2016-10-17] MEDS: APIXABAN 5 MG TABLET PO SCH ×2 (09:17→21:13)
--- NOTE | 2016-10-17 12:17 | PN ---
Date/Time of Note Date/Time of Note DATE: 10/17/16 TIME: 12:16 Assessment/Plan VTE Prophylaxis VTE Prophylaxis Intervention: other (Eliquis) Lines/Catheters IV [facility] Urinary Cath still in place: No Assessment/Plan Chief Complaint/Hosp Course Assessment/Plan: 60 yo male with a past medical history of dyslipidemia, end stage liver disease from ETOH abuse, cirrhosis, aortic stenosis, essential hypertension, type II DM, who came in 11/17 to having abdominal pain for the past three days. 1. Abd pain - viral vs bacterial gastroenteritis - resolving pain, WBC nL, but + fever this AM - continue abx - check UA + ucx as well 2. Afib - intermittent RVR - initially had elevated rate - dig low - appreciate cardio recs, ECHO EF 55%, diastolic dysfunction, rate better controlled now - continue on Eliquis [id number] of 4 - BB, digoxin, amiodarone, lasix PO 3. Hypoxemic respiratory failure - acute, slightly improved now. CT chest shows no PE, but + pleural effusion. Pt has pulm HTN as well. - per pulm, order for thoracentesis - f/u fluid studies 4. ESLD - cirrhosis - hepatic adjust medications 5. /CAD - continue with aspirin 6. Anemia of chronic liver disease - continue with iron supplementation 7. Essential HTN - continue with home medications 8. Type II DM - uncontrolled - hgba1c 7.4, ISS, start lantus/ISS 9. Dyslipidemia - continue with statin 10. GI ppx - pepcid 11. DVT ppx - heparin 12. psych - pt initially with SI and HI, now per psych consult rec's, no present issues - monitor Problems: Subjective 24 Hr Interval Summary Free Text/Dictation Pt had fever this AM. Cleared by psych team yesterday regarding SI and HI (none presently). Exam/Review of Systems Vital Signs Vitals Vital Signs Date Time Temp Pulse Resp B/P Pulse Ox O2 Delivery O2 Flow Rate FiO2 10/17/16 11:47 98.4 82 20 105/69 93 10/17/16 09:00 Nasal Cannula 2.0 Intake and Output 10/16/16 10/16/16 10/17/16 14:59 22:59 06:59 Intake Total 700 ml 350 ml Output Total 750 ml 1100 ml Balance -50 ml -750 ml Exam Gen Mary Lou: less distress, AAOx4 HEENT: NC/AT, JOS - left, EOMI NECK: supple, no thyromegaly THORAX: symmetrical, no obvious deformities CV:- irregularly irregular, II/ - systolic murmur Lungs: bibasilar crackles, no wheezing - mild improvement Abd: soft, less tenderness to deep palpation/ND, hyperactive +BS, no rebound, no guarding, hepatomegaly 2 cm below costophrenic angle EXT: trace bilateral lower extremity edema, no ecchymosis, no clubbing, FROM Neuro: CN II-XII grossly intact, no focal deficits Psych: anxious Skin: C/D/I Results Result Diagram: 10/16/16 1033 10/16/16 1033 Results 24 hrs Laboratory Tests Test 10/16/16 17:34 10/16/16 21:50 10/17/16 08:00 10/17/16 11:27 Bedside Glucose 98 136 94 111 Medications Medications Current Medications Ondansetron HCl (Zofran Inj) 4 mg Q6H PRN IV NAUSEA AND/OR VOMITING; Start at 14:30 Nitroglycerin (Nitroglycerin (Sl Tab) 0.4 Mg) 1 tab Q5M PRN SL CHEST PAIN; Start 10/12/16 at 14:30 Acetaminophen (Tylenol Tab) 650 mg Q6H PRN PO PAIN LEVEL 1-3 OR FEVER Last administered on 10/17/16 06:51; Admin Dose 650 MG; Start 10/12/16 at 14:30 Morphine Sulfate (morphine) 2 mg Q4H PRN IV PAIN LEVEL 7-10 Last administered on 10/13/16at 10:23; Admin Dose 2 MG; Start 10/12/16 at 14:30 Docusate Sodium (Colace) 100 mg Q12H PRN PO CONSTIPATION; Start 10/12/16 at 14 :30 Famotidine (Pepcid) 20 mg Q12 PO Last administered on 10/17/16 09:16; Admin Dose 20 MG; Start 10/12/16 at 21:00 Amiodarone HCl (Cordarone) 200 mg BID PO Last administered on 10/17/16 09:16; Admin Dose 200 MG; Start 10/12/16 at 21:00 Apixaban (Eliquis) 5 mg BID PO Last administered on 10/17/16 09:17; Admin Dose 5 MG; Start 10/12/16 at 21:00 Digoxin (Digoxin) 0.125 mg DAILY@13 PO Last administered on 10/16/16 14:12; Admin Dose 0.125 MG; Start 10/13/16 at 13:00 Ferrous Sulfate (Ferrous Sulfate (Ec)) 325 mg DAILY PO Last administered on 10/17 09:17; Admin Dose 325 MG; Start 10/13/16 at 09:00 Folic Acid (Folic Acid) 1 mg DAILY PO Last administered on 10/17/16 09:17; Admin Dose 1 MG; Start 10/13/16 at 09:00 Furosemide (Lasix) 40 mg DAILY PO Last administered on 10/17/16 09:17; Admin Dose 40 MG; Start 10/13/16 at 09:00 Losartan Potassium (Cozaar) 25 mg DAILY PO Last administered on 10/17/16 09:17 ; Admin Dose 25 MG; Start 10/13/16 at 09:00 Metoprolol Tartrate (Lopressor) 50 mg BID PO Last administered on 10/17/16 09: 17; Admin Dose 50 MG; Start 10/12/16 at 21:00 Pantoprazole (Protonix Tab) 40 mg DAILY@06 PO Last administered on 10/17/16 05: 58; Admin Dose 40 MG; Start 10/13/16 at 06:00 Polyethylene Glycol (Miralax) 17 gm DAILY PO Last administered on 10/17/16 09: 15; Admin Dose 17 GM; Start 10/13/16 at 09:00 Diagnostic Test (Pha) (Accucheck) 1 ea 02 XX ; Start 10/13/16 at 02:00 Miscellaneous Information 1 ea NOTE XX ; Start 10/12/16 at 15:00 Glucose (Glutose) 15 gm Q15M PRN PO DECREASED GLUCOSE; Start 10/12/16 at 15:00 Glucose (Glutose) 22.5 gm Q15M PRN PO DECREASED GLUCOSE; Start 10/12/16 at 15: 00 Dextrose (D50w Syringe) 25 ml Q15M PRN IV DECREASED GLUCOSE; Start 10/12/16 at 15:00 Dextrose (D50w Syringe) 50 ml Q15M PRN IV DECREASED GLUCOSE; Start 10/12/16 at 15:00 Glucagon (Glucagen) 1 mg Q15M PRN IM DECREASED GLUCOSE; Start 10/12/16 at 15: 00 Glucose (Glutose) 15 gm Q15M PRN BUCCAL DECREASED GLUCOSE; Start 10/12/16 at 15:00 Haloperidol (Haldol) 2 mg BID PO Last administered on 10/17/16 09:17; Admin Dose 2 MG; Start 10/13/16 at 13:30 Diphenhydramine HCl (Benadryl) 50 mg Q6H PRN PO ALLERGIC REACTION; Start 10/13 at 13:30 Lorazepam (Ativan) 2 mg Q8H PRN IV AGITATION/ANXIETY; Start 10/13/16 at 13:30 Diltiazem HCl 30 mg 30 mg Q8H PRN PO hr>130 sustained; Start 10/13/16 at 23:00 Levofloxacin/ Dextrose 150 ml @ 100 mls/hr Q24H IVPB Last administered on 02:16; Admin Dose 100 MLS/HR; Start 10/16/16 at 00:30 Metronidazole (Flagyl 500 Mg (Pmx)) 100 ml @ 100 mls/hr Q8 IVPB Last administered on 10/17/16 05:58; Admin Dose 100 MLS/HR; Start 10/16/16 at 06:00 NAILA KEN Oct 17, 2016 12:17
--- NOTE | 2016-10-17 13:01 | CONS ---
Date/Time of Note Date/Time of Note DATE: 10/17/16 TIME: 13:00 Consult Date/Type/Reason Admit Date/Time Oct 12, 2016 at 12:48 Initial Consult Date Type of Consultation: Pulm Subjective No events, mild sob Objective Vital Signs Date Time Temp Pulse Resp B/P Pulse Ox O2 Delivery O2 Flow Rate FiO2 10/17/16 12:17 89 10/17/16 11:47 98.4 20 105/69 93 10/17/16 09:00 Nasal Cannula 2.0 Intake and Output 10/16/16 10/16/16 10/17/16 15:00 23:00 07:00 Intake Total 700 ml 350 ml Output Total 750 ml 1100 ml Balance -50 ml -750 ml PHYSICAL EXAMINATION: GENERAL: Well-nourished, well-developed gentleman, comfortable at rest, no acute distress. VITAL SIGNS: Currently afebrile, pulse is 100, blood pressure 140/77, O2 saturation 96% on 2 L nasal cannula. NECK: Supple. No JVD or lymphadenopathy. CARDIAC: S1, S2, no added sounds or murmurs. CHEST: Diminished air entry bilaterally. ABDOMEN: Obese, soft, nontender, no guarding, no rebound. EXTREMITIES: No cyanosis, clubbing, edema. NEUROLOGIC: Generalized weakness. CT chest right effusion. Results/Medications Result Diagram: 10/16/16 1033 10/16/16 1033 Results 24 hrs Laboratory Tests Test 10/16/16 17:34 10/16/16 21:50 10/17/16 08:00 10/17/16 11:27 Bedside Glucose 98 136 94 111 Medications Current Medications Ondansetron HCl (Zofran Inj) 4 mg Q6H PRN IV NAUSEA AND/OR VOMITING; Start at 14:30 Nitroglycerin (Nitroglycerin (Sl Tab) 0.4 Mg) 1 tab Q5M PRN SL CHEST PAIN; Start 10/12/16 at 14:30 Acetaminophen (Tylenol Tab) 650 mg Q6H PRN PO PAIN LEVEL 1-3 OR FEVER Last administered on 10/17/16t 06:51; Admin Dose 650 MG; Start 10/12/16 at 14:30 Morphine Sulfate (morphine) 2 mg Q4H PRN IV PAIN LEVEL 7-10 Last administered on 10/13/16at 10:23; Admin Dose 2 MG; Start 10/12/16 at 14:30 Docusate Sodium (Colace) 100 mg Q12H PRN PO CONSTIPATION; Start 10/12/16 at 14 :30 Famotidine (Pepcid) 20 mg Q12 PO Last administered on 10/17/16 09:16; Admin Dose 20 MG; Start 10/12/16 at 21:00 Amiodarone HCl (Cordarone) 200 mg BID PO Last administered on 10/17/16 09:16; Admin Dose 200 MG; Start 10/12/16 at 21:00 Apixaban (Eliquis) 5 mg BID PO Last administered on 10/17/16 09:17; Admin Dose 5 MG; Start 10/12/16 at 21:00 Digoxin (Digoxin) 0.125 mg DAILY@13 PO Last administered on 10/16/16 14:12; Admin Dose 0.125 MG; Start 10/13/16 at 13:00 Ferrous Sulfate (Ferrous Sulfate (Ec)) 325 mg DAILY PO Last administered on 10/17 09:17; Admin Dose 325 MG; Start 10/13/16 at 09:00 Folic Acid (Folic Acid) 1 mg DAILY PO Last administered on 10/17/16 09:17; Admin Dose 1 MG; Start 10/13/16 at 09:00 Furosemide (Lasix) 40 mg DAILY PO Last administered on 10/17/16 09:17; Admin Dose 40 MG; Start 10/13/16 at 09:00 Losartan Potassium (Cozaar) 25 mg DAILY PO Last administered on 10/17/16 09:17 ; Admin Dose 25 MG; Start 10/13/16 at 09:00 Metoprolol Tartrate (Lopressor) 50 mg BID PO Last administered on 10/17/16 09: 17; Admin Dose 50 MG; Start 10/12/16 at 21:00 Pantoprazole (Protonix Tab) 40 mg DAILY@06 PO Last administered on 10/17/16 05: 58; Admin Dose 40 MG; Start 10/13/16 at 06:00 Polyethylene Glycol (Miralax) 17 gm DAILY PO Last administered on 10/17/16 09: 15; Admin Dose 17 GM; Start 10/13/16 at 09:00 Diagnostic Test (Pha) (Accucheck) 1 ea 02 XX ; Start 10/13/16 at 02:00 Miscellaneous Information 1 ea NOTE XX ; Start 10/12/16 at 15:00 Glucose (Glutose) 15 gm Q15M PRN PO DECREASED GLUCOSE; Start 10/12/16 at 15:00 Glucose (Glutose) 22.5 gm Q15M PRN PO DECREASED GLUCOSE; Start 10/12/16 at 15: 00 Dextrose (D50w Syringe) 25 ml Q15M PRN IV DECREASED GLUCOSE; Start 10/12/16 at 15:00 Dextrose (D50w Syringe) 50 ml Q15M PRN IV DECREASED GLUCOSE; Start 10/12/16 at 15:00 Glucagon (Glucagen) 1 mg Q15M PRN IM DECREASED GLUCOSE; Start 10/12/16 at 15: 00 Glucose (Glutose) 15 gm Q15M PRN BUCCAL DECREASED GLUCOSE; Start 10/12/16 at 15:00 Haloperidol (Haldol) 2 mg BID PO Last administered on 10/17/16 09:17; Admin Dose 2 MG; Start 10/13/16 at 13:30 Diphenhydramine HCl (Benadryl) 50 mg Q6H PRN PO ALLERGIC REACTION; Start 10/13 at 13:30 Lorazepam (Ativan) 2 mg Q8H PRN IV AGITATION/ANXIETY; Start 10/13/16 at 13:30 Diltiazem HCl 30 mg 30 mg Q8H PRN PO hr>130 sustained; Start 10/13/16 at 23:00 Levofloxacin/ Dextrose 150 ml @ 100 mls/hr Q24H IVPB Last administered on 02:16; Admin Dose 100 MLS/HR; Start 10/16/16 at 00:30 Metronidazole (Flagyl 500 Mg (Pmx)) 100 ml @ 100 mls/hr Q8 IVPB Last administered on 10/17/16 05:58; Admin Dose 100 MLS/HR; Start 10/16/16 at 06:00 Assessment/Plan Chief Complaint/Hosp Course IMPRESSION AND PLAN: 1. Pulmonary hypertension, unclear etiology. Possibly component of obstructive sleep apnea, mild hypoxemia. 2. Psychiatric disorder. 3. Resolved gastroenteritis. 4. Outpatient pulmonary function test. 5. Outpatient sleep study. 6. Supplemental O2. Currently not needed as PaO2 of 64 on room air. 7. Moderate right effusion. For thoracentesis. Problems: MELI HOLMAN MD, [facility] Oct 17, 2016 13:01
[2016-10-17] MEDS: DIGOXIN 0.125 MG TAB PO SCH (13:42)
[2016-10-17 13:45] LABS: ADD UMIC NO; URINE BILIRUBIN (Dip) NEGATIVE (NEGATIVE); URINE BLOOD (Dip) NEGATIVE (NEGATIVE); URINE COLOR LT. YELLOW (YELLOW); URINE GLUCOSE (Dip) NEGATIVE (NEGATIVE); URINE KETONES (Dip) NEGATIVE (NEGATIVE); URINE LEUKOCYTE ESTERASE (Dip) NEGATIVE (NEGATIVE); URINE NITRITE (Dip) NEGATIVE (NEGATIVE); URINE TOTAL PROTEIN (Dip) NEGATIVE (NEGATIVE); URINE UROBILINOGEN (Dip) 0.2 E.U./dL (0.1-1.0)
--- NOTE | 2016-10-17 14:24 | CONS ---
Date/Time of Note Date/Time of Note DATE: 10/17/16 TIME: 14:22 Assessment/Plan Assessment/Plan Additional Assessment/Plan Atrial fibrillation with rapid ventricular rates, improved MR/TR Pulmonary HTN Acute decompensated valvular and diastolic congestive heart failure, improved Alcohol abuse Liver cirrhosis -Heart rate trend overall within normal limits, blood pressure within normal limits, continue beta naty Consultation Date/Type/Reason Admit Date/Time Oct 12, 2016 at 12:48 Type of Consultation: cv 24 HR Interval Summary Free Text/Dictation Denies shortness of breath, chest pain or palpitations Exam/Review of Systems Vital Signs Vitals Vital Signs Date Time Temp Pulse Resp B/P Pulse Ox O2 Delivery O2 Flow Rate FiO2 10/17/16 12:17 89 10/17/16 11:47 98.4 20 105/69 93 10/17/16 09:00 Nasal Cannula 2.0 Intake and Output 10/16/16 10/16/16 10/17/16 15:00 23:00 07:00 Intake Total 700 ml 350 ml Output Total 750 ml 1100 ml Balance -50 ml -750 ml Exam No apparent distress Constitutional: alert, obese, oriented Head: normocephalic Neck: supple Respiratory: other (course breath sounds bilaterally, no wheezing) Cardiovascular: irregular rhythm, other (S1 and S2 heard) Gastrointestinal: bowel sounds, distended, non-tender, other (no guarding), soft Extremities: edema (trace) Results Result Diagram: 10/16/16 1033 10/16/16 1033 Results 24 hrs Laboratory Tests Test 10/16/16 17:34 10/16/16 21:50 10/17/16 08:00 10/17/16 11:27 Bedside Glucose 98 136 94 111 Test 10/17/16 12:46 Urine Bilirubin NEGATIVE Urine Clarity CLEAR Urine Color LT. YELLOW Urine Glucose NEGATIVE Urine Hemoglobin NEGATIVE Urine Ketones NEGATIVE Urine Leukocyte Esterase NEGATIVE Urine Nitrite NEGATIVE Urine Specific [place] 1.020 Urine Total Protein NEGATIVE Urine Urobilinogen 0.2 E.U./dL Urine pH 5.5 Medications Medications Current Medications Ondansetron HCl (Zofran Inj) 4 mg Q6H PRN IV NAUSEA AND/OR VOMITING; Start at 14:30 Nitroglycerin (Nitroglycerin (Sl Tab) 0.4 Mg) 1 tab Q5M PRN SL CHEST PAIN; Start 10/12/16 at 14:30 Acetaminophen (Tylenol Tab) 650 mg Q6H PRN PO PAIN LEVEL 1-3 OR FEVER Last administered on 10/17/16 06:51; Admin Dose 650 MG; Start 10/12/16 at 14:30 Morphine Sulfate (morphine) 2 mg Q4H PRN IV PAIN LEVEL 7-10 Last administered on 10/13/16at 10:23; Admin Dose 2 MG; Start 10/12/16 at 14:30 Docusate Sodium (Colace) 100 mg Q12H PRN PO CONSTIPATION; Start 10/12/16 at 14 :30 Famotidine (Pepcid) 20 mg Q12 PO Last administered on 10/17/16 09:16; Admin Dose 20 MG; Start 10/12/16 at 21:00 Amiodarone HCl (Cordarone) 200 mg BID PO Last administered on 10/17/16 09:16; Admin Dose 200 MG; Start 10/12/16 at 21:00 Apixaban (Eliquis) 5 mg BID PO Last administered on 10/17/16 09:17; Admin Dose 5 MG; Start 10/12/16 at 21:00 Digoxin (Digoxin) 0.125 mg DAILY@13 PO Last administered on 10/17/16 13:42; Admin Dose 0.125 MG; Start 10/13/16 at 13:00 Ferrous Sulfate (Ferrous Sulfate (Ec)) 325 mg DAILY PO Last administered on 10/17 09:17; Admin Dose 325 MG; Start 10/13/16 at 09:00 Folic Acid (Folic Acid) 1 mg DAILY PO Last administered on 10/17/16 09:17; Admin Dose 1 MG; Start 10/13/16 at 09:00 Furosemide (Lasix) 40 mg DAILY PO Last administered on 10/17/16 09:17; Admin Dose 40 MG; Start 10/13/16 at 09:00 Losartan Potassium (Cozaar) 25 mg DAILY PO Last administered on 10/17/16 09:17 ; Admin Dose 25 MG; Start 10/13/16 at 09:00 Metoprolol Tartrate (Lopressor) 50 mg BID PO Last administered on 10/17/16 09: 17; Admin Dose 50 MG; Start 10/12/16 at 21:00 Pantoprazole (Protonix Tab) 40 mg DAILY@06 PO Last administered on 10/17/16 05: 58; Admin Dose 40 MG; Start 10/13/16 at 06:00 Polyethylene Glycol (Miralax) 17 gm DAILY PO Last administered on 10/17/16 09: 15; Admin Dose 17 GM; Start 10/13/16 at 09:00 Diagnostic Test (Pha) (Accucheck) 1 ea 02 XX ; Start 10/13/16 at 02:00 Miscellaneous Information 1 ea NOTE XX ; Start 10/12/16 at 15:00 Glucose (Glutose) 15 gm Q15M PRN PO DECREASED GLUCOSE; Start 10/12/16 at 15:00 Glucose (Glutose) 22.5 gm Q15M PRN PO DECREASED GLUCOSE; Start 10/12/16 at 15: 00 Dextrose (D50w Syringe) 25 ml Q15M PRN IV DECREASED GLUCOSE; Start 10/12/16 at 15:00 Dextrose (D50w Syringe) 50 ml Q15M PRN IV DECREASED GLUCOSE; Start 10/12/16 at 15:00 Glucagon (Glucagen) 1 mg Q15M PRN IM DECREASED GLUCOSE; Start 10/12/16 at 15: 00 Glucose (Glutose) 15 gm Q15M PRN BUCCAL DECREASED GLUCOSE; Start 10/12/16 at 15:00 Haloperidol (Haldol) 2 mg BID PO Last administered on 10/17/16 09:17; Admin Dose 2 MG; Start 10/13/16 at 13:30 Diphenhydramine HCl (Benadryl) 50 mg Q6H PRN PO ALLERGIC REACTION; Start 10/13 at 13:30 Lorazepam (Ativan) 2 mg Q8H PRN IV AGITATION/ANXIETY; Start 10/13/16 at 13:30 Diltiazem HCl 30 mg 30 mg Q8H PRN PO hr>130 sustained; Start 10/13/16 at 23:00 Levofloxacin/ Dextrose 150 ml @ 100 mls/hr Q24H IVPB Last administered on 02:16; Admin Dose 100 MLS/HR; Start 10/16/16 at 00:30 Metronidazole (Flagyl 500 Mg (Pmx)) 100 ml @ 100 mls/hr Q8 IVPB Last administered on 10/17/16 13:43; Admin Dose 100 MLS/HR; Start 10/16/16 at 06:00 Hans Marrero DO Oct 17, 2016 14:24
[2016-10-17 14:31] LABS: INR 1.87; PROTIME 21.7 Sec (12.2-14.2); PT RATIO 1.7
[2016-10-17] MEDS ORDERED: LIDOCAINE 1% (MPF) 5 ML VIAL ONE (16:10)
--- NOTE | 2016-10-17 16:37 | RADRPT ---
PROCEDURE: US bilateral chest. CLINICAL INDICATION: Pleural effusion TECHNIQUE: Multiple real-time images were acquired of the patient's chest utilizing a high resolut ion transducer. COMPARISON: Recent x-ray FINDINGS: See impression. IMPRESSION: There is trace right pleural effusion which is not enough to perform thoracentesis. There is no left pleural effusion. RPTAT: AA Physician Arcadio Date Time Electronically viewed and signed by Lawson Amador Physician on 10/17/2016 16:37 RA/
[2016-10-17] MEDS: DIPHENHYDRAMINE 50 MG CAP PO PRN (22:19)
[2016-10-18] VITALS (11 sets, daily range): BP systolic 115–136; BP diastolic 73–82; PULSE 91–103; RESP 16–20
[2016-10-18] MEDS: LEVOFLOXACIN 750MG/D5W (PMX) 150 ML IVPB SCH ×2 (00:15→23:49)
[2016-10-18] MEDS: ACCUCHECK XX SCH (02:00)
[2016-10-18] MEDS: ACETAMINOPHEN 325 MG TAB PO PRN ×3 (02:03→20:55)
[2016-10-18] MEDS: metroNIDAZOLE 500 MG/NS (PMX) 100 ML IVPB SCH ×3 (05:26→22:32)
[2016-10-18] MEDS: SPIRONOLACTONE 25 MG TAB PO SCH ×2 (05:26→17:46)
[2016-10-18] MEDS: PANTOPRAZOLE (EC) 40 MG TAB PO SCH (05:26)
[2016-10-18 05:55] LABS: BASOPHILS % 0.5 % (0.0-2.0); EOSINOPHILS # 0.1 10^3/ul (0.0-0.5); EOSINOPHILS % 1.5 % (0.0-7.0); LYMPHOCYTES # 0.5 10^3/ul (0.8-2.9); LYMPHOCYTES % 11.2 % (15.0-51.0); MEAN CORPUSCULAR HEMOGLOBIN 28.7 pg (29.0-33.0); MEAN CORPUSCULAR HGB CONC 32.4 g/dl (32.0-37.0); MEAN CORPUSCULAR VOLUME 88.6 fl (82.0-101.0); MEAN PLATELET VOLUME 8.6 fl (7.4-10.4); MONOCYTE # 0.6 10^3/ul (0.3-0.9); MONOCYTES % 13.4 % (0.0-11.0); NEUTROPHIL # 3.1 10^3/ul (1.6-7.5); NEUTROPHILS % 73.4 % (39.0-77.0); PLATELET COUNT 134 10^3/UL (140-440); RED BLOOD COUNT 3.83 10^6/ul (4.70-6.10); RED CELL DISTRIBUTION WIDTH 17.8 % (11.5-14.5); UNCORRECTED WBC 4.2 10^3/ul (4.8-10.8); WHITE BLOOD COUNT 4.2 10^3/ul (4.8-10.8)
[2016-10-18 05:58] LABS: CONDITION 1; LH ANALYZER COMMENTS 1
[2016-10-18 06:08] LABS: POTASSIUM 3.9 mmol/L (3.5-5.1)
[2016-10-18 06:10] LABS: CREATININE 0.96 mg/dl (0.61-1.24)
[2016-10-18 06:11] LABS: CALCIUM 8.2 mg/dl (8.4-10.2)
[2016-10-18] MEDS: INSULIN ASPART [NOVOLOG] 3 ML PEN SC SCH ×4 (07:55→20:57)
--- NOTE | 2016-10-18 08:33 | RADRPT ---
PROCEDURE: XR Chest. CLINICAL INDICATION: Chest pain TECHNIQUE: Single frontal view of the chest. COMPARISON: 10/13/2016, CT chest chest radiograph. FINDINGS: Mild prominence of the pulmonary vasculature and minimal central interstitial edema suggestive of ca rdiopulmonary congestion. No focal consolidation. Resolution of previously seen pleural effusions. No pneumothorax. Mild cardiomegaly No acute osseous abnormalities. Vascular calcifications of the aorta are present compatible with atherosclerosis. IMPRESSION: Findings suggestive of mild cardiopulmonary congestion with resolution of previously seen pleural ef fusions. RPTAT: AADD .Jim Emmanuel MD, MD Date Time Electronically viewed and signed by .Jim Emmanuel MD, MD on 10/18/2016 08:33 .B/
[2016-10-18] MEDS: FERROUS SULFATE (EC) 325 MG TAB PO SCH (08:41)
[2016-10-18] MEDS: AMIODARONE 200 MG TAB PO SCH ×2 (08:42→20:56)
[2016-10-18] MEDS: HALOPERIDOL 1 MG TAB PO SCH ×2 (08:42→20:57)
[2016-10-18] MEDS: METOPROLOL 50 MG TAB PO SCH ×2 (08:42→20:57)
[2016-10-18] MEDS: APIXABAN 5 MG TABLET PO SCH ×2 (08:42→20:56)
[2016-10-18] MEDS: LOSARTAN 25 MG TAB PO SCH (08:42)
[2016-10-18] MEDS: FAMOTIDINE 20 MG TAB PO SCH ×2 (08:42→20:56)
[2016-10-18] MEDS: FOLIC ACID 1 MG TAB PO SCH (08:43)
[2016-10-18] MEDS: FUROSEMIDE 40 MG TAB PO SCH (08:43)
[2016-10-18] MEDS: POLYETHYLENE GLYCOL 17 GM PACKET PO SCH (08:43)
[2016-10-18] MEDS ORDERED: CEPASTAT LOZENGE MT PRN (10:30)
[2016-10-18] MEDS ORDERED: GUAIFENESIN 20 MG/ML 5ML CUP PO PRN (10:30)
--- NOTE | 2016-10-18 10:54 | PN ---
Date/Time of Note Date/Time of Note DATE: 10/18/16 TIME: 10:48 Assessment/Plan VTE Prophylaxis VTE Prophylaxis Intervention: other (Eliquis) Lines/Catheters IV Catheter Type (from Nrs): Saline Lock Urinary Cath still in place: No Assessment/Plan Chief Complaint/Hosp Course Assessment/Plan: 60 yo male with a past medical history of dyslipidemia, end stage liver disease from ETOH abuse, cirrhosis, aortic stenosis, essential hypertension, type II DM, who came in 2/2 to having abdominal pain for the past three days. 1. Abd pain - viral vs bacterial gastroenteritis - resolving pain, WBC nL, but + fever last 2 days. + diarrhea as well - continue abx - f/u UA + ucx as well - f/u c diff, and will get ID consult as well 2. Afib - intermittent RVR - initially had elevated rate - dig levels found low - appreciate cardio recs, ECHO EF 55%, diastolic dysfunction, rate better controlled now - continue on Eliquis [id number] of 4 - BB, digoxin, amiodarone, lasix PO 3. Hypoxemic respiratory failure - acute, slightly improved now. CT chest shows no PE, but + pleural effusion. Pt has pulm HTN as well. - per pulm, order for thoracentesis - f/u fluid studies - per pulm, no need for O2 at home given last ABG results 4. ESLD - cirrhosis - hepatic adjust medications 5. /CAD - continue with aspirin 6. Anemia of chronic liver disease - continue with iron supplementation 7. Essential HTN - continue with home medications 8. Type II DM - uncontrolled - [id number] 7.4, ISS, lantus 9. Dyslipidemia - continue with statin 10. GI ppx - pepcid 11. DVT ppx - heparin 12. psych - pt initially with SI and HI, now per psych consult rec's, no present issues - monitor Problems: Subjective 24 Hr Interval Summary Free Text/Dictation Thoracentesis not performed yesterday (not enought fluid). Less facial pain, less diarrhea now, but still+ fever. Denies dysuria. Exam/Review of Systems Vital Signs Vitals Vital Signs Date Time Temp Pulse Resp B/P Pulse Ox O2 Delivery O2 Flow Rate FiO2 10/18/16 08:30 91 10/18/16 07:53 100.0 20 133/77 98 10/18/16 07:45 Nasal Cannula 2.0 Intake and Output 10/17/16 10/17/16 10/18/16 15:00 23:00 07:00 Intake Total 1000 ml 700 ml Output Total 1000 ml 850 ml Balance 0 ml -150 ml Exam Gen Mary Lou: less distress, AAOx4 HEENT: NC/AT, JOS - left, EOMI NECK: supple, no thyromegaly THORAX: symmetrical, no obvious deformities CV:- irregularly irregular, II/ - systolic murmur Lungs: bibasilar crackles, no wheezing - mild improvement Abd: soft, less tenderness to deep palpation/ND, nL +BS, no rebound, no guarding EXT: trace bilateral lower extremity edema, no ecchymosis, no clubbing, FROM Neuro: CN II-XII grossly intact, no focal deficits Psych: less anxious Skin: C/D/I Results Result Diagram: 10/18/16 0504 10/18/16 0504 Results 24 hrs Laboratory Tests Test 10/17/16 11:27 10/17/16 12:46 10/17/16 13:50 10/17/16 17:35 Bedside Glucose 111 114 Urine Bilirubin NEGATIVE Urine Clarity CLEAR Urine Color LT. YELLOW Urine Glucose NEGATIVE Urine Hemoglobin NEGATIVE Urine Ketones NEGATIVE Urine Leukocyte Esterase NEGATIVE Urine Nitrite NEGATIVE Urine Specific [place] 1.020 Urine Total Protein NEGATIVE Urine Urobilinogen 0.2 E.U./dL Urine pH 5.5 INR International Normalized Ratio 1.87 Prothrombin Time 21.7 H Prothrombin Time Ratio 1.7 Test 10/17/16 21:12 10/18/16 05:04 10/18/16 07:28 Bedside Glucose 136 85 Anion Gap 17 H Basophils # 0.0 Basophils % 0.5 Blood Morphology Comment Blood Urea Nitrogen 19 Calcium Level 8.2 L Carbon Dioxide Level 27 Chloride Level 101 Creatinine 0.96 Eosinophils # 0.1 Eosinophils % 1.5 Glucose Level 78 # Hematocrit 34.0 L Hemoglobin 11.0 L Lymphocytes # 0.5 L Lymphocytes % 11.2 L Mean Corpuscular Hemoglobin 28.7 L Mean Corpuscular Hemoglobin Concent 32.4 Mean Corpuscular Volume 88.6 Mean Platelet Volume 8.6 Monocytes # 0.6 Monocytes % 13.4 H Neutrophils # 3.1 Neutrophils % 73.4 Nucleated Red Blood Cells # 0.0 Nucleated Red Blood Cells % 0.0 Platelet Count 134 L Potassium Level 3.9 Red Blood Count 3.83 L Red Cell Distribution Width 17.8 H Sodium Level 141 White Blood Count 4.2 #L Medications Medications Current Medications Ondansetron HCl (Zofran Inj) 4 mg Q6H PRN IV NAUSEA AND/OR VOMITING; Start at 14:30 Nitroglycerin (Nitroglycerin (Sl Tab) 0.4 Mg) 1 tab Q5M PRN SL CHEST PAIN; Start 10/12/16 at 14:30 Acetaminophen (Tylenol Tab) 650 mg Q6H PRN PO PAIN LEVEL 1-3 OR FEVER Last administered on 10/18/16 08:46; Admin Dose 650 MG; Start 10/12/16 at 14:30 Morphine Sulfate (morphine) 2 mg Q4H PRN IV PAIN LEVEL 7-10 Last administered on 10/13/16at 10:23; Admin Dose 2 MG; Start 10/12/16 at 14:30 Docusate Sodium (Colace) 100 mg Q12H PRN PO CONSTIPATION; Start 10/12/16 at 14 :30 Famotidine (Pepcid) 20 mg Q12 PO Last administered on 10/18/16 08:42; Admin Dose 20 MG; Start 10/12/16 at 21:00 Amiodarone HCl (Cordarone) 200 mg BID PO Last administered on 10/18/16 08:42; Admin Dose 200 MG; Start 10/12/16 at 21:00 Apixaban (Eliquis) 5 mg BID PO Last administered on 10/18/16 08:42; Admin Dose 5 MG; Start 10/12/16 at 21:00 Digoxin (Digoxin) 0.125 mg DAILY@13 PO Last administered on 10/17/16 13:42; Admin Dose 0.125 MG; Start 10/13/16 at 13:00 Ferrous Sulfate (Ferrous Sulfate (Ec)) 325 mg DAILY PO Last administered on 10/18 08:41; Admin Dose 325 MG; Start 10/13/16 at 09:00 Folic Acid (Folic Acid) 1 mg DAILY PO Last administered on 10/18/16 08:43; Admin Dose 1 MG; Start 10/13/16 at 09:00 Furosemide (Lasix) 40 mg DAILY PO Last administered on 10/18/16 08:43; Admin Dose 40 MG; Start 10/13/16 at 09:00 Losartan Potassium (Cozaar) 25 mg DAILY PO Last administered on 10/18/16 08:42 ; Admin Dose 25 MG; Start 10/13/16 at 09:00 Metoprolol Tartrate (Lopressor) 50 mg BID PO Last administered on 10/18/16 08: 42; Admin Dose 50 MG; Start 10/12/16 at 21:00 Pantoprazole (Protonix Tab) 40 mg DAILY@06 PO Last administered on 10/18/16 05: 26; Admin Dose 40 MG; Start 10/13/16 at 06:00 Polyethylene Glycol (Miralax) 17 gm DAILY PO Last administered on 10/17/16 09: 15; Admin Dose 17 GM; Start 10/13/16 at 09:00 Diagnostic Test (Pha) (Accucheck) 1 ea 02 XX ; Start 10/13/16 at 02:00 Miscellaneous Information 1 ea NOTE XX ; Start 10/12/16 at 15:00 Glucose (Glutose) 15 gm Q15M PRN PO DECREASED GLUCOSE; Start 10/12/16 at 15:00 Glucose (Glutose) 22.5 gm Q15M PRN PO DECREASED GLUCOSE; Start 10/12/16 at 15: 00 Dextrose (D50w Syringe) 25 ml Q15M PRN IV DECREASED GLUCOSE; Start 10/12/16 at 15:00 Dextrose (D50w Syringe) 50 ml Q15M PRN IV DECREASED GLUCOSE; Start 10/12/16 at 15:00 Glucagon (Glucagen) 1 mg Q15M PRN IM DECREASED GLUCOSE; Start 10/12/16 at 15: 00 Glucose (Glutose) 15 gm Q15M PRN BUCCAL DECREASED GLUCOSE; Start 10/12/16 at 15:00 Haloperidol (Haldol) 2 mg BID PO Last administered on 10/18/16 08:42; Admin Dose 2 MG; Start 10/13/16 at 13:30 Diphenhydramine HCl (Benadryl) 50 mg Q6H PRN PO ALLERGIC REACTION Last administered on 10/17/16 22:19; Admin Dose 50 MG; Start 10/13/16 at 13:30 Lorazepam (Ativan) 2 mg Q8H PRN IV AGITATION/ANXIETY; Start 10/13/16 at 13:30 Diltiazem HCl 30 mg 30 mg Q8H PRN PO hr>130 sustained; Start 10/13/16 at 23:00 Levofloxacin/ Dextrose 150 ml @ 100 mls/hr Q24H IVPB Last administered on 00:15; Admin Dose 100 MLS/HR; Start 10/16/16 at 00:30 Metronidazole (Flagyl 500 Mg (Pmx)) 100 ml @ 100 mls/hr Q8 IVPB Last administered on 10/18/16 05:26; Admin Dose 100 MLS/HR; Start 10/16/16 at 06:00 Guaifenesin (Robitussin Liquid Cup) 200 mg Q4H PRN PO cough; Start 10/18/16 at 10:30 Phenol (Cepastat Lozenge) 1 lozenge Q1H PRN MT SORE THROAT; Start 10/18/16 at 10 :30 NAILA KEN Oct 18, 2016 10:54
--- NOTE | 2016-10-18 13:08 | CONS ---
Date/Time of Note Date/Time of Note DATE: 10/18/16 TIME: 13:06 Assessment/Plan Assessment/Plan Additional Assessment/Plan Atrial fibrillation with rapid ventricular rates, improved MR/TR Pulmonary HTN Acute decompensated valvular and diastolic congestive heart failure, improved Alcohol abuse Liver cirrhosis -Patient continues to feel better with no complaints of shortness of breath him a chest pain or palpitations. Blood pressure and heart rate are well controlled. DC planning Consultation Date/Type/Reason Admit Date/Time Oct 12, 2016 at 12:48 Type of Consultation: cv 24 HR Interval Summary Free Text/Dictation Patient denies chest pain, shortness of breath or palpitations Exam/Review of Systems Vital Signs Vitals Vital Signs Date Time Temp Pulse Resp B/P Pulse Ox O2 Delivery O2 Flow Rate FiO2 10/18/16 12:25 93 10/18/16 11:55 99.5 20 115/73 98 10/18/16 07:45 Nasal Cannula 2.0 Intake and Output 10/17/16 10/17/16 10/18/16 15:00 23:00 07:00 Intake Total 1000 ml 700 ml Output Total 1000 ml 850 ml Balance 0 ml -150 ml Exam Sitting in chair, no apparent distress Constitutional: alert, obese, oriented Head: normocephalic Neck: supple Respiratory: other (course breath sounds bilaterally, no wheezing) Cardiovascular: irregular rhythm, other (S1-S2 heard) Gastrointestinal: bowel sounds, distended, non-tender, soft Extremities: edema (trace) Results Result Diagram: 10/18/16 0504 10/18/16 0504 Results 24 hrs Laboratory Tests Test 10/17/16 13:50 10/17/16 17:35 10/17/16 21:12 10/18/16 05:04 INR International Normalized Ratio 1.87 Prothrombin Time 21.7 H Prothrombin Time Ratio 1.7 Bedside Glucose 114 136 Anion Gap 17 H Basophils # 0.0 Basophils % 0.5 Blood Morphology Comment Blood Urea Nitrogen 19 Calcium Level 8.2 L Carbon Dioxide Level 27 Chloride Level 101 Creatinine 0.96 Eosinophils # 0.1 Eosinophils % 1.5 Glucose Level 78 # Hematocrit 34.0 L Hemoglobin 11.0 L Lymphocytes # 0.5 L Lymphocytes % 11.2 L Mean Corpuscular Hemoglobin 28.7 L Mean Corpuscular Hemoglobin Concent 32.4 Mean Corpuscular Volume 88.6 Mean Platelet Volume 8.6 Monocytes # 0.6 Monocytes % 13.4 H Neutrophils # 3.1 Neutrophils % 73.4 Nucleated Red Blood Cells # 0.0 Nucleated Red Blood Cells % 0.0 Platelet Count 134 L Potassium Level 3.9 Red Blood Count 3.83 L Red Cell Distribution Width 17.8 H Sodium Level 141 White Blood Count 4.2 #L Test 10/18/16 07:28 10/18/16 11:32 Bedside Glucose 85 174 Medications Medications Current Medications Ondansetron HCl (Zofran Inj) 4 mg Q6H PRN IV NAUSEA AND/OR VOMITING; Start at 14:30 Nitroglycerin (Nitroglycerin (Sl Tab) 0.4 Mg) 1 tab Q5M PRN SL CHEST PAIN; Start 10/12/16 at 14:30 Acetaminophen (Tylenol Tab) 650 mg Q6H PRN PO PAIN LEVEL 1-3 OR FEVER Last administered on 10/18/16 08:46; Admin Dose 650 MG; Start 10/12/16 at 14:30 Morphine Sulfate (morphine) 2 mg Q4H PRN IV PAIN LEVEL 7-10 Last administered on 10/13/16at 10:23; Admin Dose 2 MG; Start 10/12/16 at 14:30 Docusate Sodium (Colace) 100 mg Q12H PRN PO CONSTIPATION; Start 10/12/16 at 14 :30 Famotidine (Pepcid) 20 mg Q12 PO Last administered on 10/18/16 08:42; Admin Dose 20 MG; Start 10/12/16 at 21:00 Amiodarone HCl (Cordarone) 200 mg BID PO Last administered on 10/18/16 08:42; Admin Dose 200 MG; Start 10/12/16 at 21:00 Apixaban (Eliquis) 5 mg BID PO Last administered on 10/18/16 08:42; Admin Dose 5 MG; Start 10/12/16 at 21:00 Digoxin (Digoxin) 0.125 mg DAILY@13 PO Last administered on 10/17/16 13:42; Admin Dose 0.125 MG; Start 10/13/16 at 13:00 Ferrous Sulfate (Ferrous Sulfate (Ec)) 325 mg DAILY PO Last administered on 10/18 08:41; Admin Dose 325 MG; Start 12/29/16 at 09:00 Folic Acid (Folic Acid) 1 mg DAILY PO Last administered on 10/18/16 08:43; Admin Dose 1 MG; Start 10/13/16 at 09:00 Furosemide (Lasix) 40 mg DAILY PO Last administered on 10/18/16 08:43; Admin Dose 40 MG; Start 10/13/16 at 09:00 Losartan Potassium (Cozaar) 25 mg DAILY PO Last administered on 10/18/16 08:42 ; Admin Dose 25 MG; Start 10/13/16 at 09:00 Metoprolol Tartrate (Lopressor) 50 mg BID PO Last administered on 10/18/16 08: 42; Admin Dose 50 MG; Start 10/12/16 at 21:00 Pantoprazole (Protonix Tab) 40 mg DAILY@06 PO Last administered on 10/18/16 05: 26; Admin Dose 40 MG; Start 10/13/16 at 06:00 Polyethylene Glycol (Miralax) 17 gm DAILY PO Last administered on 10/17/16 09: 15; Admin Dose 17 GM; Start 10/13/16 at 09:00 Diagnostic Test (Pha) (Accucheck) 1 ea 02 XX ; Start 10/13/16 at 02:00 Miscellaneous Information 1 ea NOTE XX ; Start 10/12/16 at 15:00 Glucose (Glutose) 15 gm Q15M PRN PO DECREASED GLUCOSE; Start 10/12/16 at 15:00 Glucose (Glutose) 22.5 gm Q15M PRN PO DECREASED GLUCOSE; Start 10/12/16 at 15: 00 Dextrose (D50w Syringe) 25 ml Q15M PRN IV DECREASED GLUCOSE; Start 10/12/16 at 15:00 Dextrose (D50w Syringe) 50 ml Q15M PRN IV DECREASED GLUCOSE; Start 10/12/16 at 15:00 Glucagon (Glucagen) 1 mg Q15M PRN IM DECREASED GLUCOSE; Start 10/12/16 at 15: 00 Glucose (Glutose) 15 gm Q15M PRN BUCCAL DECREASED GLUCOSE; Start 10/12/16 at 15:00 Haloperidol (Haldol) 2 mg BID PO Last administered on 10/18/16 08:42; Admin Dose 2 MG; Start 10/13/16 at 13:30 Diphenhydramine HCl (Benadryl) 50 mg Q6H PRN PO ALLERGIC REACTION Last administered on 10/17/16 22:19; Admin Dose 50 MG; Start 10/13/16 at 13:30 Lorazepam (Ativan) 2 mg Q8H PRN IV AGITATION/ANXIETY; Start 10/13/16 at 13:30 Diltiazem HCl 30 mg 30 mg Q8H PRN PO hr>130 sustained; Start 10/13/16 at 23:00 Levofloxacin/ Dextrose 150 ml @ 100 mls/hr Q24H IVPB Last administered on 00:15; Admin Dose 100 MLS/HR; Start 10/16/16 at 00:30 Metronidazole (Flagyl 500 Mg (Pmx)) 100 ml @ 100 mls/hr Q8 IVPB Last administered on 10/18/16 05:26; Admin Dose 100 MLS/HR; Start 10/16/16 at 06:00 Guaifenesin (Robitussin Liquid Cup) 200 mg Q4H PRN PO cough; Start 10/18/16 at 10:30 Phenol (Cepastat Lozenge) 1 lozenge Q1H PRN MT SORE THROAT; Start 10/18/16 at 10 :30 Hans Marrero DO Oct 18, 2016 13:08
[2016-10-18] MEDS: DIGOXIN 0.125 MG TAB PO SCH (13:09)
--- NOTE | 2016-10-18 13:15 | CONS ---
DATE OF ADMISSION: 10/12/2016 DATE OF CONSULTATION: 10/18/2016 INFECTIOUS DISEASE CONSULTATION REASON FOR CONSULTATION: Antibiotic management. HISTORY OF PRESENT ILLNESS: Trip Roland is a 60-year-old male with a number of problems who comes in now with fever and is being seen for antibiotic management. His past history includes: 1. 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 2. Dyslipidemia. 3. Aortic stenosis. 4. Essential hypertension. 5. Type 2 adult-onset diabetes mellitus. 6. Severe abdominal pain for 3 days prior to admission. His abdominal pain was diffuse, associated with nausea and 3 episodes of nonbloody vomitus. He also complained of pleuritic chest pain, worse on inspiration, and tired feeling and fever and chills wi th no sick contacts and some dizziness. He denies chest pain, cardiac, loss of consciousness, or ur inary abnormalities. Initially went to [facility] and was transferred to [facility]. He came with abdominal pain, possible bacterial gastroenteritis, so viral, also with atrial fib rillation as well as his other problems as outlined. On admission, his white count was 5.8, H and H 10.7 and 32.8, platelet count 141,000. Today his white count is 4.2, H and H 11 and 34, platelet c ount 134,000. BUN and creatinine 19/0.96. Urine is negative. Occult blood negative. MICROBIOLOGY: Urine, blood all are negative. Stool for ova and parasites is negative. He has no p athogens in his stool. There are no white cells in the stool. HOSPITAL COURSE: The patient has resolving pain, but still has fever over the last few days as well as diarrhea. C diff was repeated. The patient has had a thoracentesis as outlined. Urinalysis an d culture were negative. Blood cultures negative. The patient was started on Levaquin and Flagyl. His temperature was 100.9 today, 102 yesterday, so he has been running a temperature up to 102.5 o n the and currently trending downwards though at 100.9 maximum today. PAST MEDICAL HISTORY: Operations as outlined. FAMILY HISTORY: Noncontributory. PAST SURGICAL HISTORY: Right eye resection. SOCIAL HISTORY: He drinks occasionally, never smoked. ALLERGIES: NONE TO PENICILLIN, SULFA, OR FOODS. MEDICATIONS: Per chart. REVIEW OF SYSTEMS: As per HPI. PHYSICAL EXAMINATION: GENERAL: The patient is a well-developed, well-nourished, chronically ill-appearing male who is nilson ke, responsive, in no acute distress. VITAL SIGNS: Stable. He is afebrile. SKIN: Without generalized rash. HEENT: Within normal limits. NECK: Supple. LYMPH NODES: None palpable. CHEST: Decreased breath sounds at the bases. HEART: Irregularly irregular rhythm. ABDOMEN: Soft, nontender. He does have hepatomegaly with the liver edge 2 cm below costophrenic an gle without splenomegaly. EXTREMITIES: Without cyanosis or clubbing. He has trace edema. RECTAL AND GENITAL: Deferred. NEUROLOGIC: No focal neurological abnormalities. IMPRESSION AND PLAN: We will await the thoracentesis. He has had blood cultures and urine cultures that have been negative. His chest x-ray and CT scan of the chest and abdomen showed moderate righ t and left pleural effusions, but probably not amenable to aspiration and right basilar atelectasis versus pneumonitis which may be the source of his fever. His fevers are trending downward at this p oint, so I would just observe him at this point. There is nothing to suggest tuberculosis or fungal disease at this juncture, so will continue him on Levaquin and Flagyl. I will dictate my findings t o the hospitalist. We may want to get GI consult. Dictated By: ABDOUL FELIX MD, JD/RONNIE Conf#: [id number] DID#: [id number]
--- NOTE | 2016-10-18 15:51 | CONS ---
Date/Time of Note Date/Time of Note DATE: 10/18/16 TIME: 15:45 Consult Date/Type/Reason Admit Date/Time Oct 12, 2016 at 12:48 Type of Consultation: Pulm Subjective Comfortable No new events Objective Vital Signs Date Time Temp Pulse Resp B/P Pulse Ox O2 Delivery O2 Flow Rate FiO2 10/18/16 12:25 93 10/18/16 11:55 99.5 20 115/73 98 10/18/16 07:45 Nasal Cannula 2.0 Intake and Output 10/17/16 10/17/16 10/18/16 15:00 23:00 07:00 Intake Total 1000 ml 700 ml Output Total 1000 ml 850 ml Balance 0 ml -150 ml PHYSICAL EXAMINATION: GENERAL: Well-nourished, well-developed gentleman, comfortable at rest, no acute distress. VITAL SIGNS: as above NECK: Supple. No JVD or lymphadenopathy. CARDIAC: S1, S2, no added sounds or murmurs. CHEST: Diminished air entry bilaterally. ABDOMEN: Obese, soft, nontender, no guarding, no rebound. EXTREMITIES: No cyanosis, clubbing, edema. NEUROLOGIC: Generalized weakness. Results/Medications Result Diagram: 10/18/16 0504 10/18/16 0504 Results 24 hrs Laboratory Tests Test 10/17/16 17:35 10/17/16 21:12 10/18/16 05:04 10/18/16 07:28 Bedside Glucose 114 136 85 Anion Gap 17 H Basophils # 0.0 Basophils % 0.5 Blood Morphology Comment Blood Urea Nitrogen 19 Calcium Level 8.2 L Carbon Dioxide Level 27 Chloride Level 101 Creatinine 0.96 Eosinophils # 0.1 Eosinophils % 1.5 Glucose Level 78 # Hematocrit 34.0 L Hemoglobin 11.0 L Lymphocytes # 0.5 L Lymphocytes % 11.2 L Mean Corpuscular Hemoglobin 28.7 L Mean Corpuscular Hemoglobin Concent 32.4 Mean Corpuscular Volume 88.6 Mean Platelet Volume 8.6 Monocytes # 0.6 Monocytes % 13.4 H Neutrophils # 3.1 Neutrophils % 73.4 Nucleated Red Blood Cells # 0.0 Nucleated Red Blood Cells % 0.0 Platelet Count 134 L Potassium Level 3.9 Red Blood Count 3.83 L Red Cell Distribution Width 17.8 H Sodium Level 141 White Blood Count 4.2 #L Test 10/18/16 11:32 Bedside Glucose 174 Medications Current Medications Ondansetron HCl (Zofran Inj) 4 mg Q6H PRN IV NAUSEA AND/OR VOMITING; Start at 14:30 Nitroglycerin (Nitroglycerin (Sl Tab) 0.4 Mg) 1 tab Q5M PRN SL CHEST PAIN; Start 10/12/16 at 14:30 Acetaminophen (Tylenol Tab) 650 mg Q6H PRN PO PAIN LEVEL 1-3 OR FEVER Last administered on 10/18/16 08:46; Admin Dose 650 MG; Start 10/12/16 at 14:30 Morphine Sulfate (morphine) 2 mg Q4H PRN IV PAIN LEVEL 7-10 Last administered on 10/13/16at 10:23; Admin Dose 2 MG; Start 10/12/16 at 14:30 Docusate Sodium (Colace) 100 mg Q12H PRN PO CONSTIPATION; Start 10/12/16 at 14 :30 Famotidine (Pepcid) 20 mg Q12 PO Last administered on 10/18/16 08:42; Admin Dose 20 MG; Start 10/12/16 at 21:00 Amiodarone HCl (Cordarone) 200 mg BID PO Last administered on 10/18/16 08:42; Admin Dose 200 MG; Start 10/12/16 at 21:00 Apixaban (Eliquis) 5 mg BID PO Last administered on 10/18/16 08:42; Admin Dose 5 MG; Start 10/12/16 at 21:00 Digoxin (Digoxin) 0.125 mg DAILY@13 PO Last administered on 10/18/16 13:09; Admin Dose 0.125 MG; Start 10/13/16 at 13:00 Ferrous Sulfate (Ferrous Sulfate (Ec)) 325 mg DAILY PO Last administered on 10/18 08:41; Admin Dose 325 MG; Start 10/13/16 at 09:00 Folic Acid (Folic Acid) 1 mg DAILY PO Last administered on 10/18/16 08:43; Admin Dose 1 MG; Start 10/13/16 at 09:00 Furosemide (Lasix) 40 mg DAILY PO Last administered on 10/18/16 08:43; Admin Dose 40 MG; Start 10/13/16 at 09:00 Losartan Potassium (Cozaar) 25 mg DAILY PO Last administered on 10/18/16 08:42 ; Admin Dose 25 MG; Start 10/13/16 at 09:00 Metoprolol Tartrate (Lopressor) 50 mg BID PO Last administered on 10/18/16 08: 42; Admin Dose 50 MG; Start 10/12/16 at 21:00 Pantoprazole (Protonix Tab) 40 mg DAILY@06 PO Last administered on 10/18/16 05: 26; Admin Dose 40 MG; Start 10/13/16 at 06:00 Polyethylene Glycol (Miralax) 17 gm DAILY PO Last administered on 10/17/16 09: 15; Admin Dose 17 GM; Start 10/13/16 at 09:00 Diagnostic Test (Pha) (Accucheck) 1 ea 02 XX ; Start 10/13/16 at 02:00 Miscellaneous Information 1 ea NOTE XX ; Start 10/12/16 at 15:00 Glucose (Glutose) 15 gm Q15M PRN PO DECREASED GLUCOSE; Start 10/12/16 at 15:00 Glucose (Glutose) 22.5 gm Q15M PRN PO DECREASED GLUCOSE; Start 10/12/16 at 15: 00 Dextrose (D50w Syringe) 25 ml Q15M PRN IV DECREASED GLUCOSE; Start 10/12/16 at 15:00 Dextrose (D50w Syringe) 50 ml Q15M PRN IV DECREASED GLUCOSE; Start 10/12/16 at 15:00 Glucagon (Glucagen) 1 mg Q15M PRN IM DECREASED GLUCOSE; Start 10/12/16 at 15: 00 Glucose (Glutose) 15 gm Q15M PRN BUCCAL DECREASED GLUCOSE; Start 10/12/16 at 15:00 Haloperidol (Haldol) 2 mg BID PO Last administered on 10/18/16 08:42; Admin Dose 2 MG; Start 10/13/16 at 13:30 Diphenhydramine HCl (Benadryl) 50 mg Q6H PRN PO ALLERGIC REACTION Last administered on 10/17/16 22:19; Admin Dose 50 MG; Start 10/13/16 at 13:30 Lorazepam (Ativan) 2 mg Q8H PRN IV AGITATION/ANXIETY; Start 10/13/16 at 13:30 Diltiazem HCl 30 mg 30 mg Q8H PRN PO hr>130 sustained; Start 10/13/16 at 23:00 Levofloxacin/ Dextrose 150 ml @ 100 mls/hr Q24H IVPB Last administered on 00:15; Admin Dose 100 MLS/HR; Start 10/16/16 at 00:30 Metronidazole (Flagyl 500 Mg (Pmx)) 100 ml @ 100 mls/hr Q8 IVPB Last administered on 10/18/16 13:10; Admin Dose 100 MLS/HR; Start 10/16/16 at 06:00 Guaifenesin (Robitussin Liquid Cup) 200 mg Q4H PRN PO cough Last administered on 10/18/16 13:09; Admin Dose 200 MG; Start 10/18/16 at 10:30 Phenol (Cepastat Lozenge) 1 lozenge Q1H PRN MT SORE THROAT Last administered on 10/18/16 13:09; Admin Dose 1 LOZENGE; Start 10/18/16 at 10:30 Assessment/Plan Chief Complaint/Hosp Course IMPRESSION AND PLAN: 1. Pulmonary hypertension, unclear etiology. Possibly component of obstructive sleep apnea, mild hypoxemia. 2. Psychiatric disorder. 3. Resolved gastroenteritis. 4. Outpatient pulmonary function test. 5. Outpatient sleep study. 6. Supplemental O2. 7. u/s sounds no significant effusion, Continue lasix. Problems: MELI HOLMAN MD, [facility] Oct 18, 2016 15:50
[2016-10-18] MEDS ORDERED: LEVALBUTEROL (NEB) 0.63 MG/3 ML AMP HHN PRN (18:00)
[2016-10-18] MEDS ORDERED: IPRATROPIUM (NEB) 0.5 MG/2.5 ML AMP HHN PRN (18:00)
[2016-10-18] MEDS: DIPHENHYDRAMINE 50 MG CAP PO PRN (23:50)
[2016-10-19] VITALS (8 sets, daily range): BP systolic 120–135; BP diastolic 76–88; PULSE 89–113; RESP 17–90
[2016-10-19] MEDS: ACCUCHECK XX SCH (02:00)
[2016-10-19] MEDS: PANTOPRAZOLE (EC) 40 MG TAB PO SCH (05:24)
[2016-10-19] MEDS: metroNIDAZOLE 500 MG/NS (PMX) 100 ML IVPB SCH (05:24)
[2016-10-19] MEDS: SPIRONOLACTONE 25 MG TAB PO SCH (05:25)
[2016-10-19 06:26] LABS: BASOPHILS % 0.1 % (0.0-2.0); EOSINOPHILS # 0.1 10^3/ul (0.0-0.5); EOSINOPHILS % 1.5 % (0.0-7.0); HEMOGLOBIN 11.4 g/dl (14.0-18.0); LYMPHOCYTES # 1.1 10^3/ul (0.8-2.9); LYMPHOCYTES % 26.2 % (15.0-51.0); MEAN CORPUSCULAR HEMOGLOBIN 28.4 pg (29.0-33.0); MEAN CORPUSCULAR HGB CONC 32.5 g/dl (32.0-37.0); MEAN CORPUSCULAR VOLUME 87.3 fl (82.0-101.0); MEAN PLATELET VOLUME 8.7 fl (7.4-10.4); MONOCYTE # 0.5 10^3/ul (0.3-0.9); MONOCYTES % 12.6 % (0.0-11.0); NEUTROPHIL # 2.5 10^3/ul (1.6-7.5); NEUTROPHILS % 59.6 % (39.0-77.0); PLATELET COUNT 156 10^3/UL (140-440); RED BLOOD COUNT 4.01 10^6/ul (4.70-6.10); RED CELL DISTRIBUTION WIDTH 17.6 % (11.5-14.5); UNCORRECTED WBC 4.1 10^3/ul (4.8-10.8); WHITE BLOOD COUNT 4.1 10^3/ul (4.8-10.8)
[2016-10-19 06:41] LABS: CONDITION 1; LH ANALYZER COMMENTS 1
[2016-10-19 07:22] LABS: CALCIUM 8.4 mg/dl (8.4-10.2)
[2016-10-19] MEDS: INSULIN ASPART [NOVOLOG] 3 ML PEN SC SCH ×2 (07:55→11:50)
[2016-10-19 08:07] LABS: POTASSIUM 4.1 mmol/L (3.5-5.1)
[2016-10-19 08:09] LABS: CREATININE 0.99 mg/dl (0.61-1.24)
[2016-10-19] MEDS: HALOPERIDOL 1 MG TAB PO SCH (08:59)
[2016-10-19] MEDS: FERROUS SULFATE (EC) 325 MG TAB PO SCH (09:00)
[2016-10-19] MEDS: POLYETHYLENE GLYCOL 17 GM PACKET PO SCH (09:00)
[2016-10-19] MEDS: AMIODARONE 200 MG TAB PO SCH (09:00)
[2016-10-19] MEDS: LOSARTAN 25 MG TAB PO SCH (09:00)
[2016-10-19] MEDS: METOPROLOL 50 MG TAB PO SCH (09:00)
[2016-10-19] MEDS: FUROSEMIDE 40 MG TAB PO SCH (09:02)
[2016-10-19] MEDS: FAMOTIDINE 20 MG TAB PO SCH (09:02)
[2016-10-19] MEDS: FOLIC ACID 1 MG TAB PO SCH (09:02)
[2016-10-19] MEDS: APIXABAN 5 MG TABLET PO SCH (09:02)
--- NOTE | 2016-10-19 11:07 | PDOCDIS ---
Discharge Instructions CONDITION Patient Condition: Stable HOME CARE INSTRUCTIONS: Special Diet: 1800 max ACTIVITY: Activity Restrictions: Slowly Increase Activity Rest between Activity Avoid heavy lifting FOLLOW UP/APPOINTMENTS Appointments Please take your medications as prescribed, and see your doctor in the clinic in 1 week. NAILA KEN Oct 19, 2016 11:07
[2016-10-19] MEDS ORDERED: METR500T PO (11:09)
[2016-10-19] MEDS ORDERED: LEVO750T25 PO (11:09)
--- NOTE | 2016-10-19 11:44 | DS ---
DATE OF ADMISSION: 10/12/2016 DATE OF DISCHARGE: 10/19/2016 HISTORY OF PRESENT ILLNESS: A 60-year-old male originally admitted on 10/12/2016, being discharged home on 10/19/2016. The patient initially came in with abdominal pain. He was admitted to telemetr y floor, seen by cardiology team and pulmonary team and infectious disease team during this hospital stay. The patient was initially thought to have viral versus bacterial gastroenteritis. He had so me diarrhea as well. We checked C. diff, it was negative. We checked his UA which was negative as well. He was treated with antibiotics for that. He also was found with atrial fibrillation with RV R and he was found to have low digoxin levels so cardiology team was consulted. The patient had an echocardiogram performed that showed ejection fraction of 55%. He had abnormal diastolic function, but normal left ventricular systolic function, normal left ventricular cavity size and wall thicknes s. He was found with some aortic sclerosis but without stenosis, and there was some moderate mitral valve regurg as well. In any event, he was treated for atrial fibrillation with RVR. His rate cam e stable. He was continued on Eliquis medication as well as his CHADS2 score was found to be around the 4 range. He was also found with some hypoxemic respiratory failure. A CT of the chest showed no PE, but ther e was some pleural effusions. There was an attempt at a thoracentesis, but there was not enough flu id to be extracted out. In any event, the patient's breathing symptoms improved. He was seen by [facility] and treated for that. He had some adjustment to his hepatic medications for his end-stage l iver disease cirrhosis. He also initially had some psychiatric issues, presented initially wi th suicide ideation or homicidal ideation. Psychiatry team initially had him on hold, but then reev aluation by psychiatry team for 24 to 48 hours later showed that the patient was not found to have a ny more suicidal or homicidal ideations and he was cleared from a psychiatric point of view. He had some fevers. Infectious disease team saw the patient. They recommended Levaquin and Flagyl. It w as thought that his symptoms might be secondary to upper respiratory infection as well, but the vicenta ent is clinically improved and his labs are stable. He is able to ambulate and tolerate a p.o. diet . Again, his heart rate is improved. His abdominal pain is improved. He will be discharged home to day. DISCHARGE MEDICATIONS: He will be sent with the following medications: 1. Cardizem 30 mg q.8h. p.r.n. 2. Levaquin 750 mg p.o. daily for 7 days. 3. Flagyl 500 mg p.o. t.i.d. for 7 days. 4. Aldactone 12.5 mg p.o. b.i.d. 5. Amiodarone 200 mg b.i.d. 6. Eliquis 5 mg p.o. b.i.d. 7. Digoxin 0.125 mg p.o. daily. 8. Colace 100 mg p.o. b.i.d. p.r.n. 9. Ferrous sulfate 325 mg daily. 10. Folic acid 1 mg daily. 11. Lasix 40 mg daily. 12. Losartan 20 one daily. 13. Metformin 1000 mg b.i.d. with meals. 14. Lopressor 50 mg b.i.d. 15. Protonix 40 mg daily. 17. MiraLax 17 grams daily. Continue to follow up with his regular doctor in the clinic in the next 1 to 2 weeks. FINAL DIAGNOSES: 1. Abdominal pain secondary to most likely viral gastroenteritis, now improving, C. difficile negat rody. 2. Atrial fibrillation with rapid ventricular response, now rate controlled on found with CHADS2 VA Sc score 4, continued on Eliquis, also on beta naty amiodarone and digoxin. 3. Hypoxemic respiratory failure, now improved. 4. End-stage liver disease with cirrhosis. 5. History of , coronary artery disease. 6. Anemia of chronic anemia, stable. 7. Essential hypertensive. 8. Type 2 diabetes. 9. High cholesterol. 10. Depression. 11. Upper respiratory infection, improving on antibiotics. TIME SPENT DISCHARGING PATIENT: 45 minutes. Dictated By: NAILA HWANG Conf#: [id number] DID#: [id number]
--- NOTE | 2016-10-19 12:16 | PN ---
DATE: 10/19/2016 SUBJECTIVE: No changes overnight, no fevers. The patient is alert, feels good, looks comfortable. Denies pain, discomfort. LABORATORY DATA: WBC today 4.1, no shift, no bands. BUN 19, creatinine 0.99. REVIEW OF SYSTEMS: All negative. No nausea, vomiting, diarrhea. PHYSICAL EXAMINATION: GENERAL: Well-developed, middle-aged man who is alert, in no distress. HEENT: Head atraumatic, normocephalic. Sclerae anicteric. Buccal mucosa pink. NECK: Supple, trachea midline. CHEST: Rise symmetrical. Breath sounds clear. HEART: S1, S2. ABDOMEN: Soft. Bowel tones present. EXTREMITIES: Without cyanosis. ASSESSMENT: 1. Systemic inflammatory response syndrome with on and off low grade fevers. So far all cultures have been negative. 2. Status post diarrhea. 3. End-stage liver disease with cirrhosis. 4. Alcohol abuse. 5. Diabetes. PLAN: The patient remains stable. So far all cultures have been negative. He is on Flagyl and Lev aquin, which we will continue for 5 more days for possible enteritis. Dictated By: BIN ROBLERO [employer] for ABDOUL RAINEY/RONNIE Conf#: [id number] DID#: [id number]
[2016-10-19] MEDS: DIGOXIN 0.125 MG TAB PO SCH (12:55)
== END 2016-10-19 13:15 | disposition short-term general hospital (02) | DRG 371 ==
LOC: TEL 12:48
PROVIDERS: ADMIT Family Medicine; ATTEND Family Medicine
DX: A04.9 Bacterial intestinal infection, unspecified (principal); J96.91 Respiratory failure, unspecified with hypoxia; I50.33 Acute on chronic diastolic (congestive) heart failure; E11.9 Type 2 diabetes mellitus without complications; I10 Essential (primary) hypertension; D63.8 Anemia in other chronic diseases classified elsewhere; R44.0 Auditory hallucinations; I48.91 Unspecified atrial fibrillation; I25.10 Atherosclerotic heart disease of native coronary artery without angina pectoris; E78.00 Pure hypercholesterolemia, unspecified; F32.9 Major depressive disorder, single episode, unspecified; I35.0 Nonrheumatic aortic (valve) stenosis; J06.9 Acute upper respiratory infection, unspecified; E78.5 Hyperlipidemia, unspecified; G47.00 Insomnia, unspecified; I27.2 Other secondary pulmonary hypertension; F99 Mental disorder, not otherwise specified; K70.30 Alcoholic cirrhosis of liver without ascites; F10.10 Alcohol abuse, uncomplicated; K72.90 Hepatic failure, unspecified without coma; Z79.82 Long term (current) use of aspirin
CPT/HCPCS: 36600; 71010; 71020; 71275; 76604; 80048; 80053; 80061; 80162; 81003; 82140; 82270; 82550; 82553; 82803; 82962; 83036; 83735; 84443; 84484; 85025; 85610; 86674; 87040; 87045; 87075; 87086; 87177; 87205; 90686; 93306; 94640; J1815; J1940; J1956; J2270; J3475; Q9967

== ENCOUNTER 2017-01-19 20:31 | Inpatient (IN) | payer OTHER ==
[~2017-01-19] VITALS: Ht 165.1 cm; Wt 81.7 kg
[~2017-01-19 20:31] MED LIST: AMIO200T2 PO; APIX2.5T PO; DIGO125T19 PO; DOCU-159 PO; FER325 PO; FOLI-49 PO; FURO40TA4 PO; LEVO750T25 PO; LOSA25TA5 PO; METF500T PO; METO-429 PO; METR500T PO; PANT40TA4 PO; POLY17PO6 PO; SPIR25TA PO
[2017-01-19 20:56] VITALS: PULSE 94
[2017-01-19 21:04] VITALS: BP 128/78; RESP 21
[2017-01-19] MEDS ORDERED: CARSR60 PO (21:11)
[2017-01-19] MEDS ORDERED: POTA20TA15 PO (21:11)
[2017-01-19 21:18] VITALS: Ht 165.1 cm; Wt 81.7 kg
[2017-01-19 21:20] VITALS: BP 128/78; PULSE 85; RESP 18
--- NOTE | 2017-01-19 21:44 | HP ---
Date/Time of Note Date/Time of Note DATE: 01/19/17 TIME: 21:43 Assessment/Plan VTE Prophylaxis VTE Prophylaxis Intervention: other (Already on Eloquiis) Lines/Catheters IV Catheter Type (from Nrs): Saline Lock Assessment/Plan Assessment/Plan 1) atrial fibrillation with RVR, resolved the rapid rate after Cardizem drip, but continues in atrial fibrillation - Admit to Telemetry - Resume all Home Medications as listed - CONSULT: Cardiology, will get a current Echocardiogram as the notes from [place] mention severe aortic stenosis, but the Echo we have from 09/2016 specifically excludes that. 2) decompensated alcoholic liver cirrhosis with ascites status post paracentesis, improved - AM Labs: CBC, CMP 3) abdominal pain due to #2, improved 4) alcoholism with heavy drinking daily, last drink 6 or 7 days ago 5) diastolic heart failure 6) diabetes mellitus type 2, borderline uncontrolled with hemoglobin A1c = 7.9 on 09/02/16 - Low Fat, Low Cholesterol Diet - Accu-Chek AC and HS 7) essential hypertension - Doing well on current regimen HPI/ROS Admit Date/Time Admit Date/Time Jan 19, 2017 at 20:31 Hx of Present Illness Patient is a 61-year-old American-speaking man, with a history of hypertension, diabetes mellitus, liver cirrhosis, anemia of chronic disease, diastolic congestive heart failure, alcohol abuse and chronic atrial fibrillation who is transferred to us from [facility] for insurance reasons. They also have him listed as having severe aortic stenosis, however patient had an echocardiogram done in September 2016 which, among other things shows an ejection fraction estimated at 55% and aortic sclerosis without stenosis. He was hospitalized there after he was found to be in atrial fibrillation with rapid ventricular response along with decompensated alcoholic cirrhosis with ascites. His rapid ventricular response was controlled with a Cardizem drip and that has since been turned off and he underwent an ultrasound- guided paracentesis. Approximately 800 mL of adia colored fluid were aspirated. He initially presented on January 18, 2017 with a complaint of abdominal pain. At that point his pain began about a week prior and was located diffusely through the abdomen. He described the pain as a pressure, 7/10 on the pain scale, and is improved with pain medication at the hospital. Nothing worsened the pain. It was associated with fevers, chills and shortness of breath. The patient states he took his last drink about 5 days prior to that and he admits to drinking approximately 10 drinks of hard alcohol or beer daily. While in the ER he was found to be in atrial fibrillation with rapid ventricular response. Diltiazem was given IV twice however he remained in A. fib so he was put on a diltiazem drip and admitted. Labs done at [facility]: WBCs 5.3 with a differential showing slightly elevated segs at 79% H/H 12.5 and 38.9 respectively with normal indices Platelets 170 INR 1.7 Sodium 141; potassium 4.0; chloride 106; CO2 25; glucose 123; BUN/creatinine 17 and 0.99 respectively Calcium 8.9; phosphorus 3.8; magnesium 1.6 up to 2.0 with treatment; total protein 7.1; albumin 3.5; globulin 3.5 Total bilirubin 1.8-2.8; direct bilirubin 0.8; a LT 27; AST 50; alkaline phosphatase 128; LDH 207; Amylase 84; lipase 77; ammonia level 17; BNP 680 to 808; CK 125 troponin I 0.0302 to < 0.029 Hemoglobin A1c 7.3; estimated mean blood glucose 163; ethanol < 5 Urinalysis: yellow, clear, specific gravity 1.015; pH 6.50; glucose negative; bilirubin negative; ketones trace; blood negative; protein trace; urobilinogen 1.0; nitrite negative; leukocyte esterase negative; squamous epithelial cells, none seen; WBCs occasional; RBCs occasional; bacteria none seen Radiologic studies from [facility]: Two-view chest x-ray done for dyspnea and chest pain, compared to x-ray done on 09/04/2016. Impression: Bilateral mild pleural effusions and lung base atelectasis versus airspace disease Ultrasound 4 quadrants for ascites: Findings: There is a small to moderate amount of ascites in the right upper quadrant. There is scalloping of the liver margin consistent with cirrhosis. There is a moderate amount of ascites in the right lower quadrant. There is a small amount of ascites in the left upper quadrant and left lower quadrant. Ultrasound-guided paracentesis for cirrhosis with recurrent ascites. Findings: 1. Initial ultrasound demonstrates large amount of ascites. 2. Successful ultrasound-guided paracentesis. Total of 800 mL of adia colored fluid was aspirated ROS General: Admits: Chills - resolved angle aspiration precautions. I was working with Chiqui last 3-year-old with his sugars to be maybe old and this is a different guides and because of NOTE by other jolynn was in 114 the last 2 nights so her moved on to lower level of care so okay ALL of the possible aspiration okay if it is already on antibiotics. 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 Hungry, would like to eat something. Denies: Nausea, Vomiting, Diarrhea, Blood in Stool, Black-Colored Stool Urogenital: Admits: Denies: Burning with Urination, Urinary Frequency, Blood in Urine Musculoskeletal: Admits: Denies: Joint Pain, Joint Swelling, Muscle Pain Neurological: Admits: Dizziness, mild Denies: Headache, Numbness, Tingling, Shooting Pains Integumentary: Admits: Denies: Rash, Itch PMH/Family/Social Past Medical History hypertension, diabetes mellitus, liver cirrhosis, anemia of chronic disease, diastolic congestive heart failure, alcohol abuse and chronic atrial fibrillation Past Surgical History Removal of right eye/globe after being kicked by a horse as a child. Past Surgical Hx: no surgical history Family History Significant Family History: other (Alcoholism in both mother and father) Social History Lives with his and son. Alcohol Use: heavy (drinks approximately 10 drinks per day for 30 years.) Smoking Status: Never smoker Exam/Review of Systems Vital Signs Vitals Vital Signs Date Time Temp Pulse Resp B/P Pulse Ox O2 Delivery O2 Flow Rate FiO2 01/19/17 21:21 Nasal Cannula 2.0 01/19/17 21:20 97.8 85 18 128/78 95 Exam Exam General: Overweight male, alert and oriented, but sometimes mumbles his words, in no acute distress Eyes: Sclera White on left. 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 Radial pulse +2/4. Bilateral pedal Edema, 2+ to knees. Pulmonary: Clear to Auscultation Bilaterally, Normal Respiratory Effort, No Rales, Rhonchi or Wheezes Gastrointestinal: Normoactive Bowel Sounds, Soft, mild, diffuse tenderness, no guarding or rebound, mild distention but non tympanic, No Hepatosplenomegaly Appreciated, No Pulsatile Masses Urogenital: Deferred Musculoskeletal: Normal Muscle Bulk and Tone Neurological: CN II - XII Grossly Intact, Non-Focal, Speech Normal, but mumbles his words occasionally Integumentary: Normal Moisture and Temperature, Good Turgor, No Jaundice, No Rash Lymphatic: No Cervical Lymphadenopathy Psychiatric: Appropriate Mood and Affect, Good Eye Contact Medications Medications Amiodarone 200 mg, 1 tab by mouth twice a day Digoxin 0.125 mg, 1 tab by mouth daily Diltiazem 60 mg, 1 tab by mouth every 8 hours Docusate sodium 100 mg, 1 by mouth twice a day when necessary I look with 5 mg, 1 by mouth twice a day Ferrous sulfate 325 mg, one by mouth daily Full of acid 1 mg, one by mouth daily K-Dur 20 g, 1 by mouth daily Lasix 40 mg, 1 by mouth daily Losartan 25 mg, one by mouth daily Metformin 1000 mg, 1 by mouth twice a day Metoprolol tartrate 50 mg, 1 by mouth twice a day MiraLAX 17 g, dissolved in water once daily before taking Multivitamin, one by mouth daily Pantoprazole 40 mg, 1 by mouth daily AURORA LACY DO Jan 19, 2017 21:44
[2017-01-19] MEDS ORDERED: HYDROCODONE/APAP (5/325) TAB PO PRN (22:00)
[2017-01-19] MEDS ORDERED: METOCLOPRAMIDE 10 MG INJ IV PRN (22:00)
[2017-01-19] MEDS ORDERED: NACL 0.9% 3 ML SYG IV SCH (22:00)
[2017-01-19] MEDS ORDERED: GLUCOSE GEL 15 GRAM TUBE PO PRN ×2 (22:00)
[2017-01-19] MEDS ORDERED: NITROGLYCERIN (SL) 0.4 MG TAB SL PRN (22:00)
[2017-01-19] MEDS ORDERED: DEXTROSE 50% 50 ML SYRINGE IV PRN ×2 (22:00)
[2017-01-19] MEDS ORDERED: GLUCAGON 1 MG INJ IM PRN (22:00)
[2017-01-19] MEDS ORDERED: ACETAMINOPHEN 325 MG TAB PO PRN (22:00)
[2017-01-19] MEDS ORDERED: GLUCOSE GEL 15 GRAM TUBE BUCCAL PRN (22:00)
[2017-01-19] MEDS: LORAZEPAM 0.5 MG TAB PO PRN (22:27)
[2017-01-19] MEDS: SPIRONOLACTONE 25 MG TAB PO SCH (22:28)
[2017-01-19] MEDS: AMIODARONE 200 MG TAB PO SCH (22:28)
[2017-01-19] MEDS: METOPROLOL 50 MG TAB PO SCH (22:28)
[2017-01-19] MEDS ORDERED: DOCUSATE SODIUM 100 MG CAP PO PRN (22:30)
[2017-01-20] VITALS (12 sets, daily range): BP systolic 102–132; BP diastolic 69–96; PULSE 69–83; RESP 17–21
[2017-01-20] MEDS: ACCU-CHEK XX SCH (00:24)
[2017-01-20] MEDS: DILTIAZEM (SR) 60 MG CAP PO SCH ×4 (00:24→21:25)
[2017-01-20] MEDS: LORAZEPAM 0.5 MG TAB PO PRN ×2 (05:05→22:04)
[2017-01-20] MEDS: FUROSEMIDE 40 MG TAB PO SCH (05:05)
[2017-01-20] MEDS: SPIRONOLACTONE 25 MG TAB PO SCH ×2 (05:05→17:22)
[2017-01-20] MEDS: INSULIN ASPART [NOVOLOG] 3 ML PEN SC SCH ×4 (08:00→21:00)
[2017-01-20 08:32] LABS: ADD SCAN DIFF NO
[2017-01-20 08:36] LABS: BASOPHILS % 0.7 % (0.0-2.0); EOSINOPHILS # 0.1 10^3/ul (0.0-0.5); EOSINOPHILS % 1.8 % (0.0-7.0); HEMATOCRIT 40.7 % (42.0-52.0); HEMOGLOBIN 12.7 g/dl (14.0-18.0); LYMPHOCYTES # 0.7 10^3/ul (0.8-2.9); LYMPHOCYTES % 14.7 % (15.0-51.0); MEAN CORPUSCULAR HEMOGLOBIN 28.5 pg (29.0-33.0); MEAN CORPUSCULAR HGB CONC 31.2 g/dl (32.0-37.0); MEAN CORPUSCULAR VOLUME 91.3 fl (82.0-101.0); MEAN PLATELET VOLUME 11.3 fl (7.4-10.4); MONOCYTE # 0.7 10^3/ul (0.3-0.9); MONOCYTES % 14.3 % (0.0-11.0); NEUTROPHIL # 3.1 10^3/ul (1.6-7.5); NEUTROPHILS % 68.3 % (39.0-77.0); PLATELET COUNT 190 10^3/UL (140-415); RED BLOOD COUNT 4.46 10^6/ul (4.70-6.10); RED CELL DISTRIBUTION WIDTH 15.1 % (11.5-14.5); WHITE BLOOD COUNT 4.6 10^3/ul (4.8-10.8)
[2017-01-20] MEDS: POLYETHYLENE GLYCOL 17 GM PACKET PO SCH (08:50)
[2017-01-20] MEDS: metFORMIN 500 MG TAB PO SCH ×2 (08:51→17:22)
[2017-01-20] MEDS: FERROUS SULFATE (EC) 325 MG TAB PO SCH (08:51)
[2017-01-20] MEDS: AMIODARONE 200 MG TAB PO SCH ×2 (08:51→21:25)
[2017-01-20] MEDS: FAMOTIDINE 20 MG TAB PO SCH ×2 (08:51→21:26)
[2017-01-20] MEDS: POTASSIUM CHLORIDE (SR) 20 MEQ TAB PO SCH (08:51)
[2017-01-20] MEDS: FOLIC ACID 1 MG TAB PO SCH (08:52)
[2017-01-20] MEDS: METOPROLOL 50 MG TAB PO SCH ×2 (08:53→21:24)
[2017-01-20 08:57] LABS: ALBUMIN/GLOBULIN RATIO 1.11; BILIRUBIN,INDIRECT 0.8 mg/dl (0-1.1); BILIRUBIN,TOTAL 0.8 mg/dl (0.2-1.3); CALCIUM 9.1 mg/dl (8.4-10.2); CHOL/HDL RATIO 1.9 RATIO; CREATININE 0.98 mg/dl (0.61-1.24); MAGNESIUM 1.7 mg/dl (1.7-2.5); POTASSIUM 4.7 mmol/L (3.5-5.1); TOTAL PROTEIN 7.6 g/dl (6.1-8.1)
[2017-01-20] MEDS ORDERED: LOSARTAN 25 MG TAB PO SCH (09:00)
[2017-01-20 09:21] LABS: THYROID STIMULATING HORMONE 4.2 MIU/L (0.465-4.680)
[2017-01-20] MEDS: DIGOXIN 0.125 MG TAB PO SCH (15:05)
--- NOTE | 2017-01-20 15:07 | PN ---
DATE: 01/20/2017 TIME OF EVALUATION: 1400. SUBJECTIVE DATA: Denies any dyspnea. Complains of abdominal pain and pain in the bilateral lower extremities. OBJECTIVE DATA: VITAL SIGNS: Temperature 98.2, pulse rate 60, respiratory rate 18, blood pressure 103/60, oxygen saturation 94% on room air. GENERAL: This is a 61-year-old male lying in bed in no apparent distress. HEENT: Head normocephalic and atraumatic. Eyes: Anicteric sclerae. Ptosis of the right upper eyelid. ENT: Nasal septum is midline. Oral mucosa is dry. NECK: Supple. No JVD noticed. RESPIRATORY: Bilaterally clear to auscultation. No adventitious breath sounds heard. No use of accessory muscles of respiration. CARDIAC: Irregularly irregular rhythm. Grade II/ systolic ejection murmur. ABDOMEN: Distended. Nontender. Bowel sounds hypoactive in all 4 quadrants. GENITOURINARY: Deferred. EXTREMITIES: No cyanosis, no clubbing. Bilateral lower extremity trace pitting edema. Peripheral pulses are palpable. NEUROLOGIC: The patient is awake, alert and oriented. Cranial nerves are grossly intact. LABORATORY AND DIAGNOSTIC DATA: WBC 4.6, hemoglobin 12.7, hematocrit 40.7, platelet count 190. Sodium 137, potassium 4.0, chloride 99, carbon dioxide 20, anion gap 14, BUN 27, creatinine 0.98, glucose 110, calcium 9.1, magnesium 1.7. ASSESSMENT AND PLAN: 1. Atrial fibrillation with rapid ventricular response. Currently, rate controlled. Continues to be in atrial fibrillation. Cardiology to evaluate the patient. Continue factor Xa inhibitors for stroke prophylaxis. 2. Alcoholic liver cirrhosis with ascites. Status post paracentesis at the referring hospital. Continue the patient on Lasix and Aldactone. Ammonia level is pending. 3. Severe pulmonary hypertension. PA systolic pressure of 92 mmHg as per 2D echocardiogram on 10/13/2016. Continue supplemental oxygen. 4. Diastolic heart failure. Compensated. Continue cardiac medications. 5. Type 2 diabetes mellitus. Hemoglobin A1c 6.9. Continue sliding scale insulin and metformin. Blood sugars well controlled. 6. Essential hypertension. Continue antihypertensives. Blood pressures well controlled. 7. Alcoholism. The patient verbalized that his last drink was 6 or 7 days ago. The patient will be monitored for any alcohol withdrawal. The patient will be maintained on vitamin B supplements. 8. Normocytic anemia. Most probably anemia from underlying liver disease. We will monitor the H and H closely. We will transfuse as needed. We will obtain an iron panel. 9. Fluid, electrolytes and nutrition. Carbohydrate controlled diet. 10. Deep venous thrombosis prophylaxis. On apixaban. 11. Gastrointestinal prophylaxis. On histamine 2 receptor blockers. PLAN: Continue telemetry monitoring. Await cardiology evaluation. The case was discussed with Dr. Orozco. KAROLINE OROZCO MD, AM/RONNIE Conf#: [id number] DID#: [id number] MTDD
[2017-01-20 15:39] LABS: IRON 34 ug/dl (35-150)
[2017-01-20 15:50] LABS: TOTAL IRON BINDING CAPACITY 491 ug/dl (241-421)
[2017-01-20] MEDS ORDERED: METOPROLOL 5 MG INJ IV PRN (17:00)
--- NOTE | 2017-01-20 17:08 | CONS ---
DATE OF ADMISSION: 01/19/2017 DATE OF CONSULTATION: 01/20/2017 CARDIAC CONSULTATION REASON FOR CONSULTATION: Atrial fibrillation. REQUESTING PHYSICIAN: Dr. Everett from the hospitalist service. HISTORY OF PRESENT ILLNESS: Ms. Roland is a 61-year-old male with history of hypertension, diabetes mellitus, liver cirrhosis, anemia of chronic disease, congestive heart failure with preserved left v entricular ejection fraction by echo 09/2016 at 55%, atrial fibrillation, chronic ETOH abuse who [facility] to [facility], with complaints of abdominal pain associated with fevers, chills, and shortness of breath. The patient states that he had his last drink about 5 days prior and was taking about 10 drinks of alcohol daily. The patient subsequently was transferred to [facility] due to insurance reasons. Upon arrival, temperature 98.4, blood press ure 128/78, pulse 91, respiratory rate 21, saturating 95%. The patient's labs revealed a white coun t of 4.6, hemoglobin 12.7, platelet count 190. Sodium 137, potassium 4.7, creatinine 0.98, BUN 27, AST 47, ALT 33. TSH of 4.2, LDL 43, HDL 59. The patient underwent electrocardiogram which is not i n chart for my review at this time, but per the ER I reviewed revealed atrial fibrillation. The pat storm, in the emergency department, was treated with diltiazem followed by diltiazem drip and admitte d to the telemetry floor. At this time, the patient remains on telemetry floor. Denies chest pain, has ongoing shortness of breath. The patient's heart rates have remained in atrial fibrillation, w ell controlled. PAST MEDICAL HISTORY: As above in HPI. MEDICATIONS CURRENTLY IN HOSPITAL: 1. Apixaban 5 mg p.o. b.i.d. 2. Digoxin 0.125 mg daily. 3. Pepcid 20 mg q. 12. 4. Folic acid 1 mg daily. 5. Cozaar 25 mg daily. 6. Potassium chloride 10 mEq daily. 7. Lasix 40 mg p.o. daily. 8. Amiodarone 200 mg p.o. b.i.d. 9. Diltiazem 60 mg p.o. every 8. 10. Metoprolol 50 mg p.o. b.i.d. 11. Aldactone 12.5 mg p.o. b.i.d. 12. Ativan p.r.n. 13. Sublingual nitroglycerin p.r.n. 14. [place] p.r.n. 15. Morphine p.r.n. ALLERGIES: NO KNOWN DRUG ALLERGIES. SOCIAL HISTORY: No tobacco. Positive ETOH abuse. No illicit drug use. FAMILY HISTORY: No history of sudden cardiac or early CAD. REVIEW OF SYSTEMS: As above in HPI. CONSTITUTIONAL: No fevers, chills. PULMONARY: Shortness of breath. CARDIOVASCULAR: Atrial fibrillation. GASTROINTESTINAL: No vomiting. GENITOURINARY: No hematuria. MUSCULOSKELETAL: Degenerative joint disease. PSYCHIATRIC: The patient denies depression. NEUROLOGIC: No documented history of CVA. PHYSICAL EXAMINATION: VITAL SIGNS: Temperature of 97.9, blood pressure most recently 102/71, pulse 76, respiratory rate 1 8, sat 97%. GENERAL: The patient is alert, awake, complaining of shortness of breath. NECK: JVP approximately 10 cm of water. CHEST: Bibasilar crackles. HEART: Regular rate and rhythm. Normal S1, S2, I/ systolic murmur, nondisplaced PMI. ABDOMEN: Positive bowel sounds, soft. EXTREMITIES: Trace edema, 1+ pulses bilaterally posterior tibial. LABORATORY DATA: As above in HPI with most recently from today, sodium 137, potassium 4.7, creatini ne 0.9, BUN 27, AST 47, ALT 33, LDL 43, HDL 59. White blood cell count 4.6, hemoglobin 12.7, platel et count of 190. IMAGING STUDIES: No imaging studies for my review at this time. ECG: No electrocardiogram in the chart for my review at this time. IMPRESSION: 1. Atrial fibrillation, currently rate controlled. 2. Shortness of breath. Assess for congestive heart failure. 3. Hypertension, currently borderline hypotension after receiving medications. 4. History of congestive heart failure with preserved left ventricular ejection fraction by echo . Assess volume status. 5. History of ethanol ETOH abuse. 6. Diabetes mellitus. 7. Anemia. 8. Shortness of breath. 9. Pulmonary hypertension by prior echo with systolic pressure of 92 which would be severe. Consid er pulmonary vasodilators. RECOMMENDATIONS: 1. At this time, would maintain the patient on telemetry monitoring to follow rhythm and rate contr ol closely. 2. Would complete a rule out for myocardial infarction to ensure the patient's shortness breath is not indicative of any acute coronary syndrome such as acute myocardial infarction. 3. Check a chest x-ray to assess for any baseline vascular congestion and BNP. 4. Continue the patient's current diltiazem and beta naty to control heart rate and blood pressu re. 5. Continue the patient's apixaban for prevention of thromboembolic complications of atrial fibrill ation. 6. Consider pulmonary vasodilators given pulmonary hypertension, severe by echo 09/2016 with a PA p ressure of 92. 7. Continue the patient's amiodarone at this time, but if the patient does remain in atrial fibrill ation, likely discontinue the patient's amiodarone. 8. Continue to follow the patient's blood sugars closely on metformin. 9. Continue the patient's digoxin at this time. 10. Continue the patient's Lasix diuresis. Follow strict I's and O's. We will consider holding th e patient's Cozaar given marginal blood pressures. Thank you for allowing me to take part in the care of this patient. I will continue to follow along very closely with you. Further recommendations will be made as the patient progresses through his inpatient hospital clinical course. Dictated By: TERA FALCON/RONNIE Conf#: [id number] DID#: [id number] CC: ESEQUIEL EVERETT MD;*EndCC*
[2017-01-20 18:05] LABS: THYROID STIMULATING HORMONE 5.24 MIU/L (0.465-4.680)
[2017-01-20] MEDS: APIXABAN 5 MG TABLET PO SCH (21:26)
[2017-01-21] VITALS (10 sets, daily range): BP systolic 111–126; BP diastolic 62–89; PULSE 70–83; RESP 16–22
[2017-01-21] MEDS: ACCU-CHEK XX SCH (02:00)
[2017-01-21] MEDS: LORAZEPAM 0.5 MG TAB PO PRN (05:07)
[2017-01-21] MEDS: SPIRONOLACTONE 25 MG TAB PO SCH ×2 (06:03→17:18)
[2017-01-21] MEDS: DILTIAZEM (SR) 60 MG CAP PO SCH ×3 (06:04→22:59)
[2017-01-21] MEDS: FUROSEMIDE 40 MG TAB PO SCH (06:04)
[2017-01-21 07:36] LABS: ADD SCAN DIFF NO
[2017-01-21 07:40] LABS: BASOPHILS % 0.4 % (0.0-2.0); EOSINOPHILS # 0.1 10^3/ul (0.0-0.5); EOSINOPHILS % 1.5 % (0.0-7.0); HEMATOCRIT 41.6 % (42.0-52.0); HEMOGLOBIN 12.5 g/dl (14.0-18.0); LYMPHOCYTES # 0.7 10^3/ul (0.8-2.9); LYMPHOCYTES % 12.8 % (15.0-51.0); MEAN CORPUSCULAR HEMOGLOBIN 27.6 pg (29.0-33.0); MEAN CORPUSCULAR VOLUME 91.8 fl (82.0-101.0); MEAN PLATELET VOLUME 11.5 fl (7.4-10.4); MONOCYTE # 0.6 10^3/ul (0.3-0.9); MONOCYTES % 12.2 % (0.0-11.0); NEUTROPHIL # 3.8 10^3/ul (1.6-7.5); NEUTROPHILS % 72.5 % (39.0-77.0); PLATELET COUNT 175 10^3/UL (140-415); RED BLOOD COUNT 4.53 10^6/ul (4.70-6.10); RED CELL DISTRIBUTION WIDTH 15.5 % (11.5-14.5); WHITE BLOOD COUNT 5.3 10^3/ul (4.8-10.8)
[2017-01-21 07:53] LABS: PHOSPHORUS 5.2 mg/dl (2.5-4.9)
[2017-01-21 07:54] LABS: MAGNESIUM 1.6 mg/dl (1.7-2.5)
[2017-01-21] MEDS: INSULIN ASPART [NOVOLOG] 3 ML PEN SC SCH ×4 (08:00→21:00)
[2017-01-21 08:07] LABS: CALCIUM 9.2 mg/dl (8.4-10.2); CREATININE 1.14 mg/dl (0.61-1.24)
[2017-01-21 08:13] LABS: CHOL/HDL RATIO 2.6 RATIO
[2017-01-21] MEDS: APIXABAN 5 MG TABLET PO SCH ×2 (08:35→20:53)
[2017-01-21] MEDS: VITAMIN B COMPLEX/VIT C CAP PO SCH (08:35)
--- NOTE | 2017-01-21 08:35 | RADRPT ---
PROCEDURE: XR Chest. CLINICAL INDICATION: Chest pain TECHNIQUE: Single AP view of the chest were obtained COMPARISON: 10/18/2016 FINDINGS: The heart is moderately enlarged. The pulmonary vasculature are unremarkable. The aorta demonstrate s atherosclerotic calcifications. There is no lung consolidation, pleural effusion or pneumothorax . Degenerative changes are seen within the thoracic spine. There is no acute osseous abnormality. IMPRESSION: Moderate cardiomegaly. RPTAT: AA .Tylor Turcios MD, Date Time Electronically viewed and signed by .Tylor Turcios MD, on 01/21/2017 08:35 .J/
[2017-01-21] MEDS: FERROUS SULFATE (EC) 325 MG TAB PO SCH (08:36)
[2017-01-21] MEDS: FAMOTIDINE 20 MG TAB PO SCH ×2 (08:36→20:52)
[2017-01-21] MEDS: FOLIC ACID 1 MG TAB PO SCH (08:36)
[2017-01-21 08:37] LABS: INR 1.52; PROTIME 18.4 Sec (12.2-14.2); PT RATIO 1.4
[2017-01-21] MEDS: METOPROLOL 50 MG TAB PO SCH ×2 (08:37→20:53)
[2017-01-21] MEDS: AMIODARONE 200 MG TAB PO SCH ×2 (08:37→20:53)
[2017-01-21] MEDS: metFORMIN 500 MG TAB PO SCH ×2 (08:37→17:17)
[2017-01-21 08:38] LABS: PARTIAL THROMBOPLASTIN TIME 29.2 Sec (25.0-35.0)
[2017-01-21] MEDS: POLYETHYLENE GLYCOL 17 GM PACKET PO SCH (08:39)
[2017-01-21] MEDS: POTASSIUM CHLORIDE (SR) 20 MEQ TAB PO SCH (09:00)
--- NOTE | 2017-01-21 12:40 | PN ---
Date/Time of Note Date/Time of Note DATE: 01/21/17 TIME: 12:39 Assessment/Plan VTE Prophylaxis VTE Prophylaxis Intervention: other (Eliquis) Lines/Catheters IV [facility]from [facility] [place] [facility] Assessment/Plan Chief Complaint/Hosp Course 1. Atrial fibrillation with rapid ventricular response. Currently, rate controlled. Continues to be in atrial fibrillation. Cardiology following. Continue factor X a inhibitors for stroke prophylaxis. 2. Alcoholic liver cirrhosis with ascites. Status post paracentesis at the referring hospital. Continue the patient on Lasix and Aldactone. Ammonia level is within normal limits. 3. Severe pulmonary hypertension. PA systolic pressure of 92 mmHg as per 2D echocardiogram on 10/13/2016. Continue supplemental oxygen and Lasix. 4. Diastolic heart failure. Compensated. Continue cardiac medications. 5. Type 2 diabetes mellitus. Hemoglobin A1c 6.9. Continue sliding scale insulin and metformin. Blood sugars well controlled. 6. Essential hypertension. Continue antihypertensives. Blood pressure is well controlled. 7. Alcoholism with the current alcohol withdrawal delirium. Continue tapering dose of Librium. Continue IV benzodiazepines for any acute episodes of alcohol withdrawal delirium. 8. Normocytic anemia, most probably anemia from underlying liver disease. We will monitor the H and H closely. We will transfuse as needed. Iron panel showing iron deficiency. Continue iron supplements. 9. Fluid, electrolytes and nutrition. Carbohydrate controlled diet. 10. Deep venous thrombosis prophylaxis. On apixaban. 11. Gastrointestinal prophylaxis. On histamine 2 receptor blockers. PLAN: Continue telemetry monitoring. Continue one-to-one supervision. Continue tapering dose of Librium. The case was discussed with Dr. Singh. Problems: Subjective 24 Hr Interval Summary Free Text/Dictation The patient has been confused since last night. The patient has a one-to-one sitter in place. Exam/Review of Systems Vital Signs Vitals Vital Signs Date Time Temp Pulse Resp B/P Pulse Ox O2 Delivery O2 Flow Rate FiO2 01/21/17 12:32 80 01/21/17 11:13 98.0 18 115/64 94 01/20/17 08:03 Nasal Cannula 2.0 Intake and Output 01/20/17 01/20/17 01/21/17 15:00 23:00 07:00 Intake Total 1200 ml Output Total 1400 ml Balance -200 ml Exam GENERAL: This is a 61-year-old male lying in bed in no apparent distress. HEENT: Head normocephalic and atraumatic. Eyes: Anicteric sclerae. Ptosis of the right upper eyelid. ENT: Nasal septum is midline. Oral mucosa is dry. NECK: Supple. No JVD noticed. RESPIRATORY: Bilaterally clear to auscultation. No adventitious breath sounds heard. No use of accessory muscles of respiration. CARDIAC: Irregularly irregular rhythm. Grade II/ systolic ejection murmur. ABDOMEN: Distended. Nontender. Bowel sounds hypoactive in all 4 quadrants. GENITOURINARY: Deferred. EXTREMITIES: No cyanosis, no clubbing. Bilateral lower extremity trace pitting edema. Peripheral pulses are palpable. NEUROLOGIC: The patient is awake and alert. Oriented X1. Results Result Diagram: 01/21/17 0635 01/21/17 0635 Results 24 hrs Laboratory Tests Test 01/20/17 15:00 01/20/17 17:20 01/20/17 21:29 01/21/17 06:35 Iron Level 34 L Total Iron Binding Capacity 491 H Percent Iron Saturation 7 L Ferritin 40.3 Troponin I < 0.012 < 0.010 B-Type Natriuretic Peptide 2790 H Thyroid Stimulating Hormone (TSH) 5.240 H Bedside Glucose 95 118 White Blood Count 5.3 Red Blood Count 4.53 L Hemoglobin 12.5 L Hematocrit 41.6 L Mean Corpuscular Volume 91.8 Mean Corpuscular Hemoglobin 27.6 L Mean Corpuscular Hemoglobin Concent 30.0 L Red Cell Distribution Width 15.5 H Platelet Count 175 Mean Platelet Volume 11.5 H Neutrophils % 72.5 Lymphocytes % 12.8 L Monocytes % 12.2 H Eosinophils % 1.5 Basophils % 0.4 Nucleated Red Blood Cells % 0.0 Neutrophils # 3.8 Lymphocytes # 0.7 L Monocytes # 0.6 Eosinophils # 0.1 Basophils # 0.0 Nucleated Red Blood Cells # 0.0 Prothrombin Time 18.4 H Prothrombin Time Ratio 1.4 INR International Normalized Ratio 1.52 Activated Partial Thromboplast Time 29.2 Sodium Level 135 Potassium Level 5.0 Chloride Level 99 Carbon Dioxide Level 28 Anion Gap 13 Blood Urea Nitrogen 37 H Creatinine 1.14 Glucose Level 112 Calcium Level 9.2 Phosphorus Level 5.2 H Magnesium Level 1.6 L Ammonia < 9 L Triglycerides Level 134 Cholesterol Level 107 LDL Cholesterol, Calculated 40 HDL Cholesterol 40 # Cholesterol/HDL Ratio 2.6 Test 01/21/17 06:55 01/21/17 08:18 01/21/17 12:31 Digoxin Level 0.6 L Bedside Glucose 98 92 Medications Medications Current Medications Lorazepam (Ativan) 1 mg Q6 PRN PO ANXIETY Last administered on 01/21/17 05:07; Admin Dose 1 MG; Start 01/19/17 at 22:00 Metoclopramide HCl (Reglan) 10 mg Q6H PRN IV NAUSEA AND/OR VOMITING; Start 01/19 at 22:00 Nitroglycerin (Nitroglycerin (Sl Tab) 0.4 Mg) 1 tab Q5M PRN SL CHEST PAIN; Start 01/19/17 at 22:00 Acetaminophen (Tylenol Tab) 650 mg Q6H PRN PO PAIN LEVEL 1-3 OR FEVER; Start at 22:00 Acetaminophen/ Hydrocodone Bitart ([place] (5/325)) 1 tab Q6H PRN PO PAIN LEVEL 4 -6; Start 01/19/17 at 22:00 Morphine Sulfate (morphine) 2 mg Q4H PRN IV PAIN LEVEL 7-10; Start 01/19/17 at 22:00 Famotidine (Pepcid) 20 mg Q12 PO Last administered on 01/21/17 08:36; Admin Dose 20 MG; Start 01/20/17 at 09:00 Diagnostic Test (Pha) (Accu-Chek) 1 ea 02 XX Last administered on 01/20/17 00: 24; Admin Dose 1 EA; Start 01/20/17 at 02:00 Miscellaneous Information 1 ea NOTE XX ; Start 01/19/17 at 22:00 Glucose (Glutose) 15 gm Q15M PRN PO DECREASED GLUCOSE; Start 01/19/17 at 22:00 Glucose (Glutose) 22.5 gm Q15M PRN PO DECREASED GLUCOSE; Start 01/19/17 at 22:00 Dextrose (D50w Syringe) 25 ml Q15M PRN IV DECREASED GLUCOSE; Start 01/19/17 at 22:00 Dextrose (D50w Syringe) 50 ml Q15M PRN IV DECREASED GLUCOSE; Start 01/19/17 at 22:00 Glucagon (Glucagen) 1 mg Q15M PRN IM DECREASED GLUCOSE; Start 01/19/17 at 22:00 Glucose (Glutose) 15 gm Q15M PRN BUCCAL DECREASED GLUCOSE; Start 01/19/17 at 22: 00 Amiodarone HCl (Cordarone) 200 mg BID PO Last administered on 01/21/17 08:37; Admin Dose 200 MG; Start 01/19/17 at 22:30 Digoxin (Digoxin) 0.125 mg DAILY@13 PO Last administered on 01/20/17 15:05; Admin Dose 0.125 MG; Start 01/20/17 at 13:00 Diltiazem HCl (Cardizem Sr) 60 mg Q8 PO Last administered on 01/21/17 06:04; Admin Dose 60 MG; Start 01/19/17 at 22:30 Docusate Sodium (Colace) 100 mg BID PRN PO CONSTIPATION; Start 01/19/17 at 22:30 Ferrous Sulfate (Ferrous Sulfate (Ec)) 325 mg DAILY PO Last administered on 01/21 08:36; Admin Dose 325 MG; Start 01/20/17 at 09:00 Folic Acid (Folic Acid) 1 mg DAILY PO Last administered on 01/21/17 08:36; Admin Dose 1 MG; Start 01/20/17 at 09:00 Furosemide (Lasix) 40 mg DAILY@06 PO Last administered on 01/21/17 06:04; Admin Dose 40 MG; Start 01/20/17 at 06:00 Losartan Potassium (Cozaar) 25 mg DAILY PO Last administered on 01/20/17 08:52 ; Admin Dose 25 MG; Start 01/20/17 at 09:00; Status Future Hold Metoprolol Tartrate (Lopressor) 50 mg BID PO Last administered on 01/21/17 08: 37; Admin Dose 50 MG; Start 01/19/17 at 22:30 Polyethylene Glycol (Miralax) 17 gm DAILY PO Last administered on 01/21/17 08: 39; Admin Dose 17 GM; Start 01/20/17 at 09:00 Potassium Chloride (Klor-Con 20) 20 meq DAILY PO Last administered on 01/20/17 08:51; Admin Dose 20 MEQ; Start 01/20/17 at 09:00 Apixaban (Eliquis) 5 mg BID PO Last administered on 01/21/17 08:35; Admin Dose 5 MG; Start 01/20/17 at 21:00 Vitamin B Complex/ Vitamin C (Berocca) 1 cap DAILY PO Last administered on t 08:35; Admin Dose 1 CAP; Start 01/21/17 at 09:00 Metoprolol Tartrate (Lopressor) 5 mg Q4H PRN IV SBP>110 Hold SBP<100; Start 01/20/17 at 17:00 KAROLINE HILLMAN NP Jan 21, 2017 12:40
[2017-01-21] MEDS ORDERED: MAGNESIUM SULFATE 2 GM/50 ML 50 ML IVPB ONE (13:00)
[2017-01-21] MEDS: DIGOXIN 0.125 MG TAB PO SCH (13:16)
[2017-01-21] MEDS: CHLORDIAZEPOXIDE 25 MG CAP PO SCH ×2 (13:16→20:52)
--- NOTE | 2017-01-21 17:18 | CONS ---
Date/Time of Note Date/Time of Note DATE: 01/21/17 TIME: 17:14 Assessment/Plan Assessment/Plan Chief Complaint/Hosp Course IMPRESSION: 1. Atrial fibrillation, currently rate controlled. 2. Shortness of breath. Assess for congestive heart failure. 3. Hypertension, currently borderline hypotension after receiving medications. 4. History of congestive heart failure with preserved left ventricular ejection fraction by echo 09/2016. Assess volume status. 5. History of ethanol ETOH abuse. 6. Diabetes mellitus. 7. Anemia. 8. Shortness of breath. 9. Pulmonary hypertension by prior echo with systolic pressure of 92 which would be severe. Consider pulmonary vasodilators. RECOMMENDATIONS: -Tele -serial ecg's -continue current diltiazem/BB/dig -Continue daily lasix and follow volume status closely -Will continue amio bid fro now but if remains in AF may d/c -Consider pulmonary vasodilators -Continue librium Problems: Consultation Date/Type/Reason Admit Date/Time Jan 19, 2017 at 20:31 Initial Consult Date 01/20/2017 Type of Consultation: Cardiology Reason for Consultation AF Referring Provider: ALBERT OROZCO Exam/Review of Systems Vital Signs Vitals Vital Signs Date Time Temp Pulse Resp B/P Pulse Ox O2 Delivery O2 Flow Rate FiO2 01/21/17 16:05 78 01/21/17 15:00 97.8 18 111/68 96 01/20/17 08:03 Nasal Cannula 2.0 Intake and Output 01/20/17 01/20/17 01/21/17 15:00 23:00 07:00 Intake Total 1200 ml Output Total 1400 ml Balance -200 ml Exam Review of Systems: CONSTITUTIONAL: No fevers, chills. PULMONARY: No sob CARDIOVASCULAR: No chest pain/palpitations GASTROINTESTINAL: No nausea/vomiting. GENITOURINARY: No hematuria/dysuria. MUSCULOSKELETAL: No myagias/arthalgias. PSYCHIATRIC: The patient denies depression. NEUROLOGIC: No weakness Constitutional: alert Psych: no complaints ENMT: mucosa pink and moist Neck: jvd (9 cm water), supple Respiratory: diminished breath sounds (at bases/B) Cardiovascular: irregular rhythm Gastrointestinal: non-tender, soft Musculoskeletal: muscle tone (normal) Extremities: edema (trace/B) Neurological: other (No focal deficits) Results Result Diagram: 01/21/17 0635 01/21/1735 Results 24 hrs Laboratory Tests Test 01/20/17 17:20 01/20/17 21:29 01/21/17 06:35 01/21/17 06:55 Bedside Glucose 95 118 White Blood Count 5.3 Red Blood Count 4.53 L Hemoglobin 12.5 L Hematocrit 41.6 L Mean Corpuscular Volume 91.8 Mean Corpuscular Hemoglobin 27.6 L Mean Corpuscular Hemoglobin Concent 30.0 L Red Cell Distribution Width 15.5 H Platelet Count 175 Mean Platelet Volume 11.5 H Neutrophils % 72.5 Lymphocytes % 12.8 L Monocytes % 12.2 H Eosinophils % 1.5 Basophils % 0.4 Nucleated Red Blood Cells % 0.0 Neutrophils # 3.8 Lymphocytes # 0.7 L Monocytes # 0.6 Eosinophils # 0.1 Basophils # 0.0 Nucleated Red Blood Cells # 0.0 Prothrombin Time 18.4 H Prothrombin Time Ratio 1.4 INR International Normalized Ratio 1.52 Activated Partial Thromboplast Time 29.2 Sodium Level 135 Potassium Level 5.0 Chloride Level 99 Carbon Dioxide Level 28 Anion Gap 13 Blood Urea Nitrogen 37 H Creatinine 1.14 Glucose Level 112 Calcium Level 9.2 Phosphorus Level 5.2 H Magnesium Level 1.6 L Ammonia < 9 L Troponin I < 0.010 Triglycerides Level 134 Cholesterol Level 107 LDL Cholesterol, Calculated 40 HDL Cholesterol 40 # Cholesterol/HDL Ratio 2.6 Vitamin D 1,25-Dihydroxy 40.9 Digoxin Level 0.6 L Test 01/21/17 08:18 01/21/17 12:31 01/21/17 16:34 Bedside Glucose 98 92 111 Medications Medications Current Medications Metoclopramide HCl (Reglan) 10 mg Q6H PRN IV NAUSEA AND/OR VOMITING; Start 01/19 at 22:00 Nitroglycerin (Nitroglycerin (Sl Tab) 0.4 Mg) 1 tab Q5M PRN SL CHEST PAIN; Start 01/19/17 at 22:00 Acetaminophen (Tylenol Tab) 650 mg Q6H PRN PO PAIN LEVEL 1-3 OR FEVER; Start at 22:00 Acetaminophen/ Hydrocodone Bitart ([place] (5/325)) 1 tab Q6H PRN PO PAIN LEVEL 4 -6; Start 01/19/17 at 22:00 Morphine Sulfate (morphine) 2 mg Q4H PRN IV PAIN LEVEL 7-10; Start 01/19/17 at 22:00 Famotidine (Pepcid) 20 mg Q12 PO Last administered on 01/21/17 08:36; Admin Dose 20 MG; Start 01/20/17 at 09:00 Diagnostic Test (Pha) (Accu-Chek) 1 ea 02 XX Last administered on 01/20/17 00: 24; Admin Dose 1 EA; Start 01/20/17 at 02:00 Miscellaneous Information 1 ea NOTE XX ; Start 01/19/17 at 22:00 Glucose (Glutose) 15 gm Q15M PRN PO DECREASED GLUCOSE; Start 01/19/17 at 22:00 Glucose (Glutose) 22.5 gm Q15M PRN PO DECREASED GLUCOSE; Start 01/19/17 at 22:00 Dextrose (D50w Syringe) 25 ml Q15M PRN IV DECREASED GLUCOSE; Start 01/19/17 at 22:00 Dextrose (D50w Syringe) 50 ml Q15M PRN IV DECREASED GLUCOSE; Start 01/19/17 at 22:00 Glucagon (Glucagen) 1 mg Q15M PRN IM DECREASED GLUCOSE; Start 01/19/17 at 22:00 Glucose (Glutose) 15 gm Q15M PRN BUCCAL DECREASED GLUCOSE; Start 01/19/17 at 22: 00 Amiodarone HCl (Cordarone) 200 mg BID PO Last administered on 01/21/17 08:37; Admin Dose 200 MG; Start 01/19/17 at 22:30 Digoxin (Digoxin) 0.125 mg DAILY@13 PO Last administered on 01/21/17 13:16; Admin Dose 0.125 MG; Start 01/20/17 at 13:00 Diltiazem HCl (Cardizem Sr) 60 mg Q8 PO Last administered on 01/21/17 13:16; Admin Dose 60 MG; Start 01/19/17 at 22:30 Docusate Sodium (Colace) 100 mg BID PRN PO CONSTIPATION; Start 01/19/17 at 22:30 Ferrous Sulfate (Ferrous Sulfate (Ec)) 325 mg DAILY PO Last administered on 01/21 08:36; Admin Dose 325 MG; Start 01/20/17 at 09:00 Folic Acid (Folic Acid) 1 mg DAILY PO Last administered on 01/21/17 08:36; Admin Dose 1 MG; Start 01/20/17 at 09:00 Furosemide (Lasix) 40 mg DAILY@06 PO Last administered on 01/21/17 06:04; Admin Dose 40 MG; Start 01/20/17 at 06:00 Losartan Potassium (Cozaar) 25 mg DAILY PO Last administered on 01/20/17 08:52 ; Admin Dose 25 MG; Start 01/20/17 at 09:00; Status Future Hold Metoprolol Tartrate (Lopressor) 50 mg BID PO Last administered on 01/21/17 08: 37; Admin Dose 50 MG; Start 01/19/17 at 22:30 Polyethylene Glycol (Miralax) 17 gm DAILY PO Last administered on 01/21/17 08: 39; Admin Dose 17 GM; Start 01/20/17 at 09:00 Apixaban (Eliquis) 5 mg BID PO Last administered on 01/21/17 08:35; Admin Dose 5 MG; Start 01/20/17 at 21:00 Vitamin B Complex/ Vitamin C (Berocca) 1 cap DAILY PO Last administered on 08:35; Admin Dose 1 CAP; Start 01/21/17 at 09:00 Metoprolol Tartrate (Lopressor) 5 mg Q4H PRN IV SBP>110 Hold SBP<100; Start 01/20/17 at 17:00 Chlordiazepoxide (Librium) 50 mg TID PO Last administered on 01/21/17 13:16; Admin Dose 50 MG; Start 01/21/17 at 13:00 Lorazepam (Ativan) 1 mg Q2H PRN IV ANXIETY; Start 01/21/17 at 13:00 TERA SARGENT Jan 21, 2017 17:18
[2017-01-21] MEDS: morphine 2 MG INJ IV PRN (19:41)
[2017-01-21] MEDS: LORAZEPAM 2 MG INJ IV PRN (20:53)
[2017-01-22] VITALS (8 sets, daily range): BP systolic 110–137; BP diastolic 72–87; PULSE 60–95; RESP 20–26
[2017-01-22] MEDS: ACCU-CHEK XX SCH (03:40)
[2017-01-22] MEDS: LORAZEPAM 2 MG INJ IV PRN (03:46)
[2017-01-22 06:13] LABS: ADD SCAN DIFF NO
[2017-01-22 06:27] LABS: BASOPHILS % 0.6 % (0.0-2.0); EOSINOPHILS # 0.1 10^3/ul (0.0-0.5); EOSINOPHILS % 2.1 % (0.0-7.0); HEMATOCRIT 38.5 % (42.0-52.0); HEMOGLOBIN 11.9 g/dl (14.0-18.0); LYMPHOCYTES # 0.7 10^3/ul (0.8-2.9); LYMPHOCYTES % 15.5 % (15.0-51.0); MEAN CORPUSCULAR HGB CONC 30.9 g/dl (32.0-37.0); MEAN CORPUSCULAR VOLUME 90.6 fl (82.0-101.0); MEAN PLATELET VOLUME 11.2 fl (7.4-10.4); MONOCYTE # 0.7 10^3/ul (0.3-0.9); MONOCYTES % 15.3 % (0.0-11.0); NEUTROPHIL # 3.1 10^3/ul (1.6-7.5); NEUTROPHILS % 66.1 % (39.0-77.0); PLATELET COUNT 170 10^3/UL (140-415); RED BLOOD COUNT 4.25 10^6/ul (4.70-6.10); RED CELL DISTRIBUTION WIDTH 15.1 % (11.5-14.5); WHITE BLOOD COUNT 4.7 10^3/ul (4.8-10.8)
[2017-01-22 06:30] LABS: MAGNESIUM 1.6 mg/dl (1.7-2.5); PHOSPHORUS 4.2 mg/dl (2.5-4.9)
[2017-01-22] MEDS: morphine 2 MG INJ IV PRN ×2 (06:38→20:13)
[2017-01-22 06:45] LABS: POTASSIUM 3.9 mmol/L (3.5-5.1)
[2017-01-22 06:48] LABS: CREATININE 1.05 mg/dl (0.61-1.24)
[2017-01-22] MEDS: FUROSEMIDE 40 MG TAB PO SCH (07:24)
[2017-01-22] MEDS: SPIRONOLACTONE 25 MG TAB PO SCH ×2 (07:25→18:08)
[2017-01-22] MEDS: DILTIAZEM (SR) 60 MG CAP PO SCH ×2 (07:26→14:03)
[2017-01-22] MEDS: INSULIN ASPART [NOVOLOG] 3 ML PEN SC SCH ×4 (08:00→21:00)
[2017-01-22] MEDS: FAMOTIDINE 20 MG TAB PO SCH ×2 (08:25→21:41)
[2017-01-22] MEDS: FERROUS SULFATE (EC) 325 MG TAB PO SCH (08:25)
[2017-01-22] MEDS: POLYETHYLENE GLYCOL 17 GM PACKET PO SCH (08:25)
[2017-01-22] MEDS: VITAMIN B COMPLEX/VIT C CAP PO SCH (08:25)
[2017-01-22] MEDS: CHLORDIAZEPOXIDE 25 MG CAP PO SCH ×3 (08:25→21:42)
[2017-01-22] MEDS: AMIODARONE 200 MG TAB PO SCH ×2 (08:26→21:48)
[2017-01-22] MEDS: FOLIC ACID 1 MG TAB PO SCH (08:26)
[2017-01-22] MEDS: metFORMIN 500 MG TAB PO SCH ×2 (08:26→18:08)
[2017-01-22] MEDS: APIXABAN 5 MG TABLET PO SCH ×2 (08:27→21:41)
[2017-01-22] MEDS: METOPROLOL 50 MG TAB PO SCH ×2 (08:27→21:41)
[2017-01-22] MEDS: DIGOXIN 0.125 MG TAB PO SCH (12:52)
[2017-01-22] MEDS ORDERED: MAGNESIUM SULFATE 2 GM/50 ML 50 ML IVPB ONE ×2 (14:00→15:00)
--- NOTE | 2017-01-22 14:52 | CONS ---
Date/Time of Note Date/Time of Note DATE: 01/22/17 TIME: 14:50 Assessment/Plan Assessment/Plan Chief Complaint/Hosp Course IMPRESSION: 1. Atrial fibrillation, currently rate controlled. 2. Shortness of breath. Assess for congestive heart failure. 3. Hypertension, currently borderline hypotension after receiving medications. 4. History of congestive heart failure with preserved left ventricular ejection fraction by echo 09/2016. Assess volume status. 5. History of ethanol ETOH abuse. 6. Diabetes mellitus. 7. Anemia. 8. Shortness of breath. 9. Pulmonary hypertension by prior echo with systolic pressure of 92 which would be severe. Consider pulmonary vasodilators. RECOMMENDATIONS: -Tele -serial ecg's -continue current diltiazem/BB/dig/eliquis -Continue daily lasix and follow volume status closely -Will continue amio bid for now but if remains in AF may d/c -Consider pulmonary vasodilators -Continue librium Problems: Consultation Date/Type/Reason Admit Date/Time Jan 19, 2017 at 20:31 Initial Consult Date 01/20/2017 Type of Consultation: Cardiology Reason for Consultation AF Referring Provider: ALBERT OROZCO Exam/Review of Systems Vital Signs Vitals Vital Signs Date Time Temp Pulse Resp B/P Pulse Ox O2 Delivery O2 Flow Rate FiO2 01/22/17 12:00 64 01/22/17 06:39 97.6 01/22/17 06:00 26 133/82 93 Room Air 01/20/17 08:03 2.0 Intake and Output 01/21/17 01/21/17 01/22/17 15:00 23:00 07:00 Intake Total 1550 ml Balance 1550 ml Exam Review of Systems: CONSTITUTIONAL: No fevers, chills. PULMONARY: No sob CARDIOVASCULAR: No chest pain/palpitations GASTROINTESTINAL: No nausea/vomiting. GENITOURINARY: No hematuria/dysuria. MUSCULOSKELETAL: No myagias/arthalgias. PSYCHIATRIC: The patient denies depression. NEUROLOGIC: No weakness Constitutional: other (sleeping) Psych: no complaints Head: normocephalic ENMT: mucosa pink and moist Neck: jvd (9 cm water), supple Respiratory: diminished breath sounds Cardiovascular: irregular rhythm Gastrointestinal: non-tender, soft Musculoskeletal: muscle tone (normal) Extremities: edema (none) Neurological: lethargic Results Result Diagram: 01/22/17 0555 01/22/17 0555 Results 24 hrs Laboratory Tests Test 01/21/17 16:34 01/21/17 20:51 01/22/17 03:49 01/22/17 05:55 Bedside Glucose 111 93 90 White Blood Count 4.7 L Red Blood Count 4.25 L Hemoglobin 11.9 L Hematocrit 38.5 L Mean Corpuscular Volume 90.6 Mean Corpuscular Hemoglobin 28.0 L Mean Corpuscular Hemoglobin Concent 30.9 L Red Cell Distribution Width 15.1 H Platelet Count 170 Mean Platelet Volume 11.2 H Neutrophils % 66.1 Lymphocytes % 15.5 Monocytes % 15.3 H Eosinophils % 2.1 Basophils % 0.6 Nucleated Red Blood Cells % 0.0 Neutrophils # 3.1 Lymphocytes # 0.7 L Monocytes # 0.7 Eosinophils # 0.1 Basophils # 0.0 Nucleated Red Blood Cells # 0.0 Sodium Level 137 Potassium Level 3.9 Chloride Level 98 Carbon Dioxide Level 26 Anion Gap 17 H Blood Urea Nitrogen 31 H Creatinine 1.05 Glucose Level 94 Calcium Level 9.0 Phosphorus Level 4.2 Magnesium Level 1.6 L Test 01/22/17 08:09 01/22/17 11:52 Bedside Glucose 102 125 Medications Medications Current Medications Metoclopramide HCl (Reglan) 10 mg Q6H PRN IV NAUSEA AND/OR VOMITING; Start 01/19 at 22:00 Nitroglycerin (Nitroglycerin (Sl Tab) 0.4 Mg) 1 tab Q5M PRN SL CHEST PAIN; Start 01/19/17 at 22:00 Acetaminophen (Tylenol Tab) 650 mg Q6H PRN PO PAIN LEVEL 1-3 OR FEVER; Start at 22:00 Acetaminophen/ Hydrocodone Bitart ([place] (5/325)) 1 tab Q6H PRN PO PAIN LEVEL 4 -6; Start 01/19/17 at 22:00 Morphine Sulfate (morphine) 2 mg Q4H PRN IV PAIN LEVEL 7-10 Last administered on 01/22/17 06:38; Admin Dose 2 MG; Start 01/19/17 at 22:00 Famotidine (Pepcid) 20 mg Q12 PO Last administered on 01/22/17 08:25; Admin Dose 20 MG; Start 01/20/17 at 09:00 Diagnostic Test (Pha) (Accu-Chek) 1 ea 02 XX Last administered on 01/22/17 03: 40; Admin Dose 1 EA; Start 01/20/17 at 02:00 Miscellaneous Information 1 ea NOTE XX ; Start 01/19/17 at 22:00 Glucose (Glutose) 15 gm Q15M PRN PO DECREASED GLUCOSE; Start 01/19/17 at 22:00 Glucose (Glutose) 22.5 gm Q15M PRN PO DECREASED GLUCOSE; Start 01/19/17 at 22:00 Dextrose (D50w Syringe) 25 ml Q15M PRN IV DECREASED GLUCOSE; Start 01/19/17 at 22:00 Dextrose (D50w Syringe) 50 ml Q15M PRN IV DECREASED GLUCOSE; Start 01/19/17 at 22:00 Glucagon (Glucagen) 1 mg Q15M PRN IM DECREASED GLUCOSE; Start 01/19/17 at 22:00 Glucose (Glutose) 15 gm Q15M PRN BUCCAL DECREASED GLUCOSE; Start 01/19/17 at 22: 00 Amiodarone HCl (Cordarone) 200 mg BID PO Last administered on 01/22/17 08:26; Admin Dose 200 MG; Start 01/19/17 at 22:30 Digoxin (Digoxin) 0.125 mg DAILY@13 PO Last administered on 01/22/17 12:52; Admin Dose 0.125 MG; Start 01/20/17 at 13:00 Diltiazem HCl (Cardizem Sr) 60 mg Q8 PO Last administered on 01/22/17 14:03; Admin Dose 60 MG; Start 01/19/17 at 22:30 Docusate Sodium (Colace) 100 mg BID PRN PO CONSTIPATION; Start 01/19/17 at 22:30 Ferrous Sulfate (Ferrous Sulfate (Ec)) 325 mg DAILY PO Last administered on 01/22 08:25; Admin Dose 325 MG; Start 01/20/17 at 09:00 Folic Acid (Folic Acid) 1 mg DAILY PO Last administered on 01/22/17 08:26; Admin Dose 1 MG; Start 01/20/17 at 09:00 Furosemide (Lasix) 40 mg DAILY@06 PO Last administered on 01/22/17 07:24; Admin Dose 40 MG; Start 01/20/17 at 06:00 Losartan Potassium (Cozaar) 25 mg DAILY PO Last administered on 01/20/17 08:52 ; Admin Dose 25 MG; Start 01/20/17 at 09:00; Status Future Hold Metoprolol Tartrate (Lopressor) 50 mg BID PO Last administered on 01/22/17 08: 27; Admin Dose 50 MG; Start 01/19/17 at 22:30 Polyethylene Glycol (Miralax) 17 gm DAILY PO Last administered on 01/22/17 08: 25; Admin Dose 17 GM; Start 01/20/17 at 09:00 Apixaban (Eliquis) 5 mg BID PO Last administered on 01/22/17 08:27; Admin Dose 5 MG; Start 01/20/17 at 21:00 Vitamin B Complex/ Vitamin C (Berocca) 1 cap DAILY PO Last administered on 08:25; Admin Dose 1 CAP; Start 01/21/17 at 09:00 Metoprolol Tartrate (Lopressor) 5 mg Q4H PRN IV SBP>110 Hold SBP<100; Start 01/20/17 at 17:00 Chlordiazepoxide (Librium) 50 mg TID PO Last administered on 01/22/17 12:52; Admin Dose 50 MG; Start 01/21/17 at 13:00 Lorazepam 1 mg 1 mg Q2H PRN IV ANXIETY Last administered on 01/22/17 03:46; Admin Dose 1 MG; Start 01/21/17 at 13:00 Magnesium Sulfate 50 ml @ 25 mls/hr ONCE ONCE IVPB Last administered on 14:02; Admin Dose 25 MLS/HR; Start 01/22/17 at 14:00; Stop 01/22/17 at 15:59 Magnesium Sulfate (Magnesium Sulfate 2 Gm/50 ml) 50 ml @ 25 mls/hr ONCE ONCE IVPB ; Start 01/22/17 at 15:00; Stop 01/22/17 at 16:59; Status TERA ELLIOTT Jan 22, 2017 14:52
--- NOTE | 2017-01-22 15:44 | PN ---
DATE: 01/22/2017 SUBJECTIVE: Chart reviewed. Cardiology consultation noted. The patient currently on room air satu rating 93% and does not appear in acute distress. Telemetry rhythm shows atrial fibrillation; [facility], rate is now about 65 to 70. PHYSICAL EXAMINATION: VITAL SIGNS: Blood pressure 133/82, pulse 64, respirations 26, temperature 97.6. HEENT: Pupils are equal and react to light. Anicteric sclerae. NECK: Supple, no JVD noted, no cervical adenopathy, no carotid bruits heard. LUNGS: Fair breath sounds bilaterally. CARDIOVASCULAR: S1, S2 irregular. ABDOMEN: Soft, nontender. No organomegaly or masses noted. EXTREMITIES: No clubbing or cyanosis noted. NEUROLOGICAL: Awake. LABORATORY DATA: WBC 4.7, hemoglobin 11.9, hematocrit 38.5, platelets 170. Sodium 137, potassium 3 .9, chloride 98, CO2 of 26, BUN 31, creatinine 1.05, glucose 94, magnesium 1.6. IMPRESSION: 1. Atrial fibrillation, now rate controlled. 2. Liver cirrhosis with ascites. 3. History of pulmonary hypertension. 4. Chronic left ventricular diastolic failure. 5. Type 2 diabetes mellitus. 6. History of hypertension. 7. History of alcoholism. 8. Anemia. 9. Hypomagnesemia. RECOMMENDATIONS: 1. Continue tele monitoring. 2. Cardiology recommendations noted. 3. Magnesium supplementation. 4. Taper Librium. Dictated By: FAYE WEISS MD, MA/RONNIE Conf#: [id number] DID#: [id number]
[2017-01-23] VITALS (12 sets, daily range): BP systolic 106–126; BP diastolic 65–76; PULSE 55–80; RESP 18–20
[2017-01-23] MEDS: DILTIAZEM (SR) 60 MG CAP PO SCH ×4 (01:33→22:20)
[2017-01-23] MEDS: morphine 2 MG INJ IV PRN (01:37)
[2017-01-23] MEDS: ACCU-CHEK XX SCH (01:38)
[2017-01-23] MEDS: SPIRONOLACTONE 25 MG TAB PO SCH ×3 (06:38→17:32)
[2017-01-23] MEDS: FUROSEMIDE 40 MG TAB PO SCH (06:39)
[2017-01-23 07:42] LABS: CREATININE 1.01 mg/dl (0.61-1.24)
[2017-01-23 07:43] LABS: CALCIUM 8.9 mg/dl (8.4-10.2); MAGNESIUM 1.8 mg/dl (1.7-2.5)
[2017-01-23] MEDS: METOPROLOL 50 MG TAB PO SCH ×2 (07:54→21:13)
[2017-01-23] MEDS: metFORMIN 500 MG TAB PO SCH ×2 (07:54→17:32)
[2017-01-23] MEDS: FERROUS SULFATE (EC) 325 MG TAB PO SCH (07:54)
[2017-01-23] MEDS: CHLORDIAZEPOXIDE 25 MG CAP PO SCH ×3 (07:54→21:12)
[2017-01-23] MEDS: VITAMIN B COMPLEX/VIT C CAP PO SCH (07:55)
[2017-01-23] MEDS: AMIODARONE 200 MG TAB PO SCH ×2 (07:55→21:12)
[2017-01-23] MEDS: APIXABAN 5 MG TABLET PO SCH ×2 (07:55→21:12)
[2017-01-23] MEDS: POLYETHYLENE GLYCOL 17 GM PACKET PO SCH (07:56)
[2017-01-23] MEDS: INSULIN ASPART [NOVOLOG] 3 ML PEN SC SCH ×4 (07:56→21:00)
[2017-01-23] MEDS: FAMOTIDINE 20 MG TAB PO SCH ×2 (07:56→21:12)
[2017-01-23] MEDS: FOLIC ACID 1 MG TAB PO SCH (07:56)
--- NOTE | 2017-01-23 09:52 | RADRPT ---
Echocardiogram Report ADDENDUM Patient Name: KANDACE CERVANTES Gender: Male Date: 1955 Study Date: 20-Jan-2017 In School Suspension Coordinator: LIBRADO Location: I Ref. Physician: AURORA LACY Quality: Good Procedures: Transthoracic echocardiogram examination. Indications: Atrial Fibrillation w/ RVR. 2D/M Mode Doppler Measurement Value Normal Range Measurement Value Normal Range LVIDd 2D 4.3 3.5 - 5.6 cm JESSICA Vmax 1.0 cm2 LVIDs 2D 3.2 2.1 - 4.1 cm JESSICA VTI 1.0 cm2 LVPWd 2D 0.8 0.6 - 1.1 cm AV Mean Arsen 1.6 m/sec IVSd 2D 0.8 0.6 - 1.1 cm AV Mean PG 12.0 mmHg AoR Diam 2D 3.1 2.0 - 3.7 cm AV Peak Arsen 2.4 m/sec EDV 2D 83.0 cm3 AV Peak PG 23.0 mmHg ESV 2D 31.8 cm3 AV VTI 41.4 cm LA Dimen 2D 4.1 2.3 - 4.0 cm LVOT Mean Arsen 0.5 m/sec LVOT Diam 2.0 cm LVOT Mean PG 1.4 mmHg LVOT Peak Arsen 0.8 m/sec LVOT Peak PG 2.5 mmHg LVOT VTI 15.1 cm TR Peak Arsen 3.6 m/sec TR Peak PG 51.7 mmHg RVSP 66.0 mmHg Findings Left Ventricle: Normal left ventricular cavity size. Normal left ventricular wall thickness. The left ventricular ejection fraction is visually estimated at 60 %. Right Ventricle: Mild enlargement of right ventricle. Mild right ventricular hypokinesis. Left Atrium: There is mild enlargement of left atrium. Right Atrium: Moderate RA enlargement with measurements between 54lt55dg. Mitral Valve: Anterior mitral valve leaflet appear mildly thickened. Posterior mitral valve leaflet appear mildly thickened. Mild mitral annular calcification. Mild mitral regurgitation. Aortic Valve: Moderate aortic stenosis. Aortic cusps appear moderately calcified. Tricuspid Valve: Normal appearance of the tricuspid valve. The estimated Peak RVSP is 66 mmHg. There is mild to moderate tricuspid regurgitation. IVC: Dilated inferior vena cava with no respiratory collapse. Conclusions 1.Normal left ventricular cavity size. Normal left ventricular wall thickness. The left ventricular ejection fraction is visually estimated at 60 %. 2.Mild enlargement of right ventricle. Mild right ventricular hypokinesis. 3.There is mild enlargement of left atrium. 4.Moderate RA enlargement with measurements between 45mm-50mm. 5.Anterior mitral valve leaflet appear mildly thickened. Posterior mitral valve leaflet appear mildly thickened. Mild mitral annular calcification. Mild mitral regurgitation. 6.Normal appearance of the tricuspid valve. The estimated Peak RVSP is 66 mmHg. There is mild to moderate tricuspid regurgitation. 7.Moderate aortic stenosis. Electronically Signed By: Paramjit Gomez 23-Jan-2017 17:10:39 -0700 [ADDENDUM] Patient Name: KANDACE CERVANTES Study Date: 20-Jan-2017 [id number]
[2017-01-23] MEDS: DIGOXIN 0.125 MG TAB PO SCH (13:44)
--- NOTE | 2017-01-23 13:46 | PN ---
Date/Time of Note Date/Time of Note DATE: 01/23/17 TIME: 13:45 Assessment/Plan VTE Prophylaxis VTE Prophylaxis Intervention: LMWH Lines/Catheters IV Catheter Type (from Nrs): Peripheral IV Assessment/Plan Chief Complaint/Hosp Course Subjective: No dyspnea or chest pain. His nausea, abd distention, and edema have stabilized. Has weakness of his legs bilaterally. Objective:vss; rate controlled. Physical exam No pallor JVD Appears reg. No m/r/g Dimin bs bilat. Abd- bs + nt; mild distended. no r/r/g Mild edema. No Homans sign. Assessment and plan 1. Anasarca, Decompensated. Etio? Severe pulmonary hypertension related? Stable cont diuretics. 2. Severe pulmonary hypertension. Secondary? Check MAC/RF. Consider V/Q. 3. A fib w RVR. Rx #2. EF noted. DC home once ok w cardio. Outpt LFTs/ TSH/ ophthl eval while on amiod. 4. Past alcoholism. No evidence of withdrawal. On b1. 5. Chr liver dz sequelae w ascites/probable cirrhosis/suspect portal htn. 6. Chronic hypertension 7. Diabetes/metabolic syndrome 8. Anemia 9. Deconditioning; ambulate, PT as needed. Problems: Exam/Review of Systems Vital Signs Vitals Vital Signs Date Time Temp Pulse Resp B/P Pulse Ox O2 Delivery O2 Flow Rate FiO2 01/23/17 12:26 57 01/23/17 11:50 98.3 20 112/73 96 Room Air 01/20/17 08:03 2.0 Intake and Output 01/22/17 01/22/17 01/23/17 15:00 23:00 07:00 Intake Total 1200 ml 540 ml Balance 1200 ml 540 ml Results Result Diagram: 01/22/17 0555 01/23/17 0620 Results 24 hrs Laboratory Tests Test 01/22/17 17:09 01/22/17 21:36 01/23/17 01:36 01/23/17 06:20 Bedside Glucose 103 124 102 Sodium Level 137 Potassium Level 4.0 Chloride Level 99 Carbon Dioxide Level 27 Anion Gap 15 Blood Urea Nitrogen 23 H Creatinine 1.01 Glucose Level 123 Calcium Level 8.9 Magnesium Level 1.8 Test 01/23/17 07:43 01/23/17 11:41 Bedside Glucose 92 133 Medications Medications Current Medications Metoclopramide HCl (Reglan) 10 mg Q6H PRN IV NAUSEA AND/OR VOMITING; Start 01/19 at 22:00 Nitroglycerin (Nitroglycerin (Sl Tab) 0.4 Mg) 1 tab Q5M PRN SL CHEST PAIN; Start 01/19/17 at 22:00 Acetaminophen (Tylenol Tab) 650 mg Q6H PRN PO PAIN LEVEL 1-3 OR FEVER; Start at 22:00 Acetaminophen/ Hydrocodone Bitart ([place] (5/325)) 1 tab Q6H PRN PO PAIN LEVEL 4 -6 Last administered on 01/23/17 07:55; Admin Dose 1 TAB; Start 01/19/17 at 22: 00 Morphine Sulfate (morphine) 2 mg Q4H PRN IV PAIN LEVEL 7-10 Last administered on 01/23/17 01:37; Admin Dose 2 MG; Start 01/19/17 at 22:00 Famotidine (Pepcid) 20 mg Q12 PO Last administered on 01/23/17 07:56; Admin Dose 20 MG; Start 01/20/17 at 09:00 Diagnostic Test (Pha) (Accu-Chek) 1 ea 02 XX Last administered on 01/23/17 01: 38; Admin Dose 1 EA; Start 01/20/17 at 02:00 Miscellaneous Information 1 ea NOTE XX ; Start 01/19/17 at 22:00 Glucose (Glutose) 15 gm Q15M PRN PO DECREASED GLUCOSE; Start 01/19/17 at 22:00 Glucose (Glutose) 22.5 gm Q15M PRN PO DECREASED GLUCOSE; Start 01/19/17 at 22:00 Dextrose (D50w Syringe) 25 ml Q15M PRN IV DECREASED GLUCOSE; Start 01/19/17 at 22:00 Dextrose (D50w Syringe) 50 ml Q15M PRN IV DECREASED GLUCOSE; Start 01/19/17 at 22:00 Glucagon (Glucagen) 1 mg Q15M PRN IM DECREASED GLUCOSE; Start 01/19/17 at 22:00 Glucose (Glutose) 15 gm Q15M PRN BUCCAL DECREASED GLUCOSE; Start 01/19/17 at 22: 00 Amiodarone HCl (Cordarone) 200 mg BID PO Last administered on 01/23/17 07:55; Admin Dose 200 MG; Start 01/19/17 at 22:30 Digoxin (Digoxin) 0.125 mg DAILY@13 PO Last administered on 01/22/17 12:52; Admin Dose 0.125 MG; Start 01/20/17 at 13:00 Diltiazem HCl (Cardizem Sr) 60 mg Q8 PO Last administered on 01/23/17 06:40; Admin Dose 60 MG; Start 01/19/17 at 22:30 Docusate Sodium (Colace) 100 mg BID PRN PO CONSTIPATION; Start 01/19/17 at 22:30 Ferrous Sulfate (Ferrous Sulfate (Ec)) 325 mg DAILY PO Last administered on 07:54; Admin Dose 325 MG; Start 01/20/17 at 09:00 Folic Acid (Folic Acid) 1 mg DAILY PO Last administered on 01/23/17 07:56; Admin Dose 1 MG; Start 01/20/17 at 09:00 Furosemide (Lasix) 40 mg DAILY@06 PO Last administered on 01/23/17 06:39; Admin Dose 40 MG; Start 01/20/17 at 06:00 Losartan Potassium (Cozaar) 25 mg DAILY PO Last administered on 01/20/17 08:52 ; Admin Dose 25 MG; Start 01/20/17 at 09:00; Status Future Hold Metoprolol Tartrate (Lopressor) 50 mg BID PO Last administered on 01/23/17 07: 54; Admin Dose 50 MG; Start 01/19/17 at 22:30 Polyethylene Glycol (Miralax) 17 gm DAILY PO Last administered on 01/22/17 08: 25; Admin Dose 17 GM; Start 01/20/17 at 09:00 Apixaban (Eliquis) 5 mg BID PO Last administered on 01/23/17 07:55; Admin Dose 5 MG; Start 01/20/17 at 21:00 Vitamin B Complex/ Vitamin C (Berocca) 1 cap DAILY PO Last administered on 01/23 07:55; Admin Dose 1 CAP; Start 01/21/17 at 09:00 Metoprolol Tartrate (Lopressor) 5 mg Q4H PRN IV SBP>110 Hold SBP<100; Start 01/20/17 at 17:00 Chlordiazepoxide (Librium) 50 mg TID PO Last administered on 01/23/17 07:54; Admin Dose 50 MG; Start 01/21/17 at 13:00 Lorazepam (Ativan) 1 mg Q2H PRN IV ANXIETY Last administered on 01/22/17 03:46 ; Admin Dose 1 MG; Start 01/21/17 at 13:00 EUGENIO MICHELE MD Jan 23, 2017 13:45
--- NOTE | 2017-01-23 15:14 | CONS ---
Date/Time of Note Date/Time of Note DATE: 01/23/17 TIME: 15:11 Assessment/Plan Assessment/Plan Chief Complaint/Hosp Course IMPRESSION: 1. Atrial fibrillation, currently rate controlled.some mild renan to 50's 2. Shortness of breath. Assess for congestive heart failure. 3. Hypertension, currently borderline hypotension after receiving medications. 4. History of congestive heart failure with preserved left ventricular ejection fraction by echo 09/2016. Assess volume status. 5. History of ethanol ETOH abuse. 6. Diabetes mellitus. 7. Anemia. 8. Shortness of breath. 9. Pulmonary hypertension by prior echo with systolic pressure of 92 which would be severe. Consider pulmonary vasodilators. RECOMMENDATIONS: -Tele -serial ecg's -continue current diltiazem/BB/dig/eliquis -Continue daily lasix and follow volume status closely -Will continue amio bid for now but if remains in AF may d/c -Consider pulmonary vasodilators -Continue librium Problems: Consultation Date/Type/Reason Admit Date/Time Jan 19, 2017 at 20:31 Initial Consult Date 01/20/2017 Type of Consultation: Cardiology Reason for Consultation AF Referring Provider: ALBERT OROZCO Exam/Review of Systems Vital Signs Vitals Vital Signs Date Time Temp Pulse Resp B/P Pulse Ox O2 Delivery O2 Flow Rate FiO2 01/23/17 12:26 57 01/23/17 11:50 98.3 20 112/73 96 Room Air 01/20/17 08:03 2.0 Intake and Output 01/22/17 01/22/17 01/23/17 15:00 23:00 07:00 Intake Total 1200 ml 540 ml Balance 1200 ml 540 ml Exam Review of Systems: CONSTITUTIONAL: No fevers, chills. PULMONARY: No sob CARDIOVASCULAR: No chest pain/palpitations GASTROINTESTINAL: No nausea/vomiting. GENITOURINARY: No hematuria/dysuria. MUSCULOSKELETAL: No myagias/arthalgias. PSYCHIATRIC: The patient denies depression. NEUROLOGIC: No weakness Constitutional: alert, oriented Psych: no complaints Head: normocephalic ENMT: mucosa pink and moist Neck: jvd (9 cm water), supple Respiratory: diminished breath sounds (at bases/B) Cardiovascular: regular rate and rhythm Gastrointestinal: non-tender, soft Musculoskeletal: muscle tone (normal) Extremities: edema (none) Results Result Diagram: 01/22/17 0555 01/23/17 0620 Results 24 hrs Laboratory Tests Test 01/22/17 17:09 01/22/17 21:36 01/23/17 01:36 01/23/17 06:20 Bedside Glucose 103 124 102 Sodium Level 137 Potassium Level 4.0 Chloride Level 99 Carbon Dioxide Level 27 Anion Gap 15 Blood Urea Nitrogen 23 H Creatinine 1.01 Glucose Level 123 Calcium Level 8.9 Magnesium Level 1.8 Test 01/23/17 07:43 01/23/17 11:41 Bedside Glucose 92 133 Medications Medications Current Medications Metoclopramide HCl (Reglan) 10 mg Q6H PRN IV NAUSEA AND/OR VOMITING; Start 01/19 at 22:00 Nitroglycerin (Nitroglycerin (Sl Tab) 0.4 Mg) 1 tab Q5M PRN SL CHEST PAIN; Start 01/19/17 at 22:00 Acetaminophen (Tylenol Tab) 650 mg Q6H PRN PO PAIN LEVEL 1-3 OR FEVER; Start at 22:00 Acetaminophen/ Hydrocodone Bitart ([place] (5/325)) 1 tab Q6H PRN PO PAIN LEVEL 4 -6 Last administered on 01/23/17 07:55; Admin Dose 1 TAB; Start 01/19/17 at 22: 00 Morphine Sulfate (morphine) 2 mg Q4H PRN IV PAIN LEVEL 7-10 Last administered on 01/23/17 01:37; Admin Dose 2 MG; Start 01/19/17 at 22:00 Famotidine (Pepcid) 20 mg Q12 PO Last administered on 01/23/17 07:56; Admin Dose 20 MG; Start 01/20/17 at 09:00 Diagnostic Test (Pha) (Accu-Chek) 1 ea 02 XX Last administered on 01/23/17 01: 38; Admin Dose 1 EA; Start 01/20/17 at 02:00 Miscellaneous Information 1 ea NOTE XX ; Start 01/19/17 at 22:00 Glucose (Glutose) 15 gm Q15M PRN PO DECREASED GLUCOSE; Start 01/19/17 at 22:00 Glucose (Glutose) 22.5 gm Q15M PRN PO DECREASED GLUCOSE; Start 01/19/17 at 22:00 Dextrose (D50w Syringe) 25 ml Q15M PRN IV DECREASED GLUCOSE; Start 01/19/17 at 22:00 Dextrose (D50w Syringe) 50 ml Q15M PRN IV DECREASED GLUCOSE; Start 01/19/17 at 22:00 Glucagon (Glucagen) 1 mg Q15M PRN IM DECREASED GLUCOSE; Start 01/19/17 at 22:00 Glucose (Glutose) 15 gm Q15M PRN BUCCAL DECREASED GLUCOSE; Start 01/19/17 at 22: 00 Amiodarone HCl (Cordarone) 200 mg BID PO Last administered on 01/23/17 07:55; Admin Dose 200 MG; Start 01/19/17 at 22:30 Digoxin (Digoxin) 0.125 mg DAILY@13 PO Last administered on 01/23/17 13:44; Admin Dose 0.125 MG; Start 01/20/17 at 13:00 Diltiazem HCl (Cardizem Sr) 60 mg Q8 PO Last administered on 01/23/17 13:45; Admin Dose 60 MG; Start 01/19/17 at 22:30 Docusate Sodium (Colace) 100 mg BID PRN PO CONSTIPATION; Start 01/19/17 at 22:30 Ferrous Sulfate (Ferrous Sulfate (Ec)) 325 mg DAILY PO Last administered on 07:54; Admin Dose 325 MG; Start 01/20/17 at 09:00 Folic Acid (Folic Acid) 1 mg DAILY PO Last administered on 01/23/17 07:56; Admin Dose 1 MG; Start 01/20/17 at 09:00 Furosemide (Lasix) 40 mg DAILY@06 PO Last administered on 01/23/17 06:39; Admin Dose 40 MG; Start 01/20/17 at 06:00 Losartan Potassium (Cozaar) 25 mg DAILY PO Last administered on 01/20/17 08:52 ; Admin Dose 25 MG; Start 01/20/17 at 09:00; Status Future Hold Metoprolol Tartrate (Lopressor) 50 mg BID PO Last administered on 01/23/17 07: 54; Admin Dose 50 MG; Start 01/19/17 at 22:30 Polyethylene Glycol (Miralax) 17 gm DAILY PO Last administered on 01/22/17 08: 25; Admin Dose 17 GM; Start 01/20/17 at 09:00 Apixaban (Eliquis) 5 mg BID PO Last administered on 01/23/17 07:55; Admin Dose 5 MG; Start 01/20/17 at 21:00 Vitamin B Complex/ Vitamin C (Berocca) 1 cap DAILY PO Last administered on 01/23 07:55; Admin Dose 1 CAP; Start 01/21/17 at 09:00 Metoprolol Tartrate (Lopressor) 5 mg Q4H PRN IV SBP>110 Hold SBP<100; Start 01/20/17 at 17:00 Chlordiazepoxide (Librium) 50 mg TID PO Last administered on 01/23/17 13:45; Admin Dose 50 MG; Start 01/21/17 at 13:00 Lorazepam (Ativan) 1 mg Q2H PRN IV ANXIETY Last administered on 01/22/17 03:46 ; Admin Dose 1 MG; Start 01/21/17 at 13:00 TERA SARGENT Jan 23, 2017 15:14
--- NOTE | 2017-01-23 16:56 | RADRPT ---
Echocardiogram Report ADDENDUM Patient Name: KANDACE CERVANTES Gender: Male Date: 1955 Study Date: 23-Jan-2017 Couturiere: Juan Daniels [facility] Location: 5538 Ref. Physician: TERA GOMEZ Quality: Good Procedures: Transthoracic echocardiogram examination. Indications: Aortic Stenosis. 2D/M Mode Doppler Measurement Value Normal Range Measurement Value Normal Range JESSICA Vmax 0.9 cm2 JESSICA VTI 0.9 cm2 AV Mean Arsen 1.6 m/sec AV Mean PG 11.9 mmHg AV Peak Arsen 2.3 m/sec AV Peak PG 20.8 mmHg AV VTI 11.6 cm LVOT Mean Arsen 0.6 m/sec LVOT Mean PG 1.6 mmHg LVOT Peak Arsen 0.8 m/sec LVOT Peak PG 2.5 mmHg LVOT VTI 18.5 cm Findings Left Ventricle: Normal left ventricular cavity size. Lower limits of normal left ventricular systolic function. The left ventricular ejection fraction is visually estimated at 55 %. Aortic Valve: Moderate aortic stenosis. Aortic cusps appear moderately calcified. Moderate aortic regurgitation. Conclusions 1.Limited. 2.Normal left ventricular cavity size. Normal left ventricular systolic function. The left ventricular ejection fraction is visually estimated at 55 %. 3.Moderate aortic stenosis. Aortic cusps appear moderately calcified. Moderate aortic regurgitation. Electronically Signed By: Tera Gomez 23-Jan-2017 17:12:34 -0700 [ADDENDUM] Patient Name: KANDACE CERVANTES Study Date: 23-Jan-2017 [id number]
[2017-01-24] VITALS (10 sets, daily range): BP systolic 103–121; BP diastolic 64–80; PULSE 62–70; RESP 20
[2017-01-24] MEDS: ACCU-CHEK XX SCH (02:00)
[2017-01-24] MEDS: SPIRONOLACTONE 25 MG TAB PO SCH ×2 (05:57→17:31)
[2017-01-24] MEDS: DILTIAZEM (SR) 60 MG CAP PO SCH ×3 (05:57→21:05)
[2017-01-24] MEDS: FUROSEMIDE 40 MG TAB PO SCH (05:58)
[2017-01-24 06:50] LABS: ADD SCAN DIFF NO
[2017-01-24 06:58] LABS: BASOPHILS % 0.5 % (0.0-2.0); EOSINOPHILS # 0.1 10^3/ul (0.0-0.5); EOSINOPHILS % 2.4 % (0.0-7.0); HEMATOCRIT 39.1 % (42.0-52.0); LYMPHOCYTES # 0.9 10^3/ul (0.8-2.9); LYMPHOCYTES % 20.3 % (15.0-51.0); MEAN CORPUSCULAR HEMOGLOBIN 27.9 pg (29.0-33.0); MEAN CORPUSCULAR HGB CONC 30.7 g/dl (32.0-37.0); MEAN CORPUSCULAR VOLUME 90.9 fl (82.0-101.0); MEAN PLATELET VOLUME 10.7 fl (7.4-10.4); MONOCYTE # 0.7 10^3/ul (0.3-0.9); MONOCYTES % 16.5 % (0.0-11.0); NEUTROPHIL # 2.5 10^3/ul (1.6-7.5); NEUTROPHILS % 59.8 % (39.0-77.0); PLATELET COUNT 192 10^3/UL (140-415); RED CELL DISTRIBUTION WIDTH 14.8 % (11.5-14.5); WHITE BLOOD COUNT 4.2 10^3/ul (4.8-10.8)
[2017-01-24 07:25] LABS: ALBUMIN 3.7 g/dl (3.3-4.9)
[2017-01-24 07:26] LABS: POTASSIUM 4.2 mmol/L (3.5-5.1)
[2017-01-24 07:28] LABS: BILIRUBIN,INDIRECT 0.6 mg/dl (0-1.1); BILIRUBIN,TOTAL 0.6 mg/dl (0.2-1.3); CREATININE 1.13 mg/dl (0.61-1.24)
[2017-01-24 07:29] LABS: MAGNESIUM 1.7 mg/dl (1.7-2.5); TOTAL PROTEIN 7.4 g/dl (6.1-8.1)
[2017-01-24] MEDS: INSULIN ASPART [NOVOLOG] 3 ML PEN SC SCH ×4 (08:00→21:00)
[2017-01-24] MEDS: VITAMIN B COMPLEX/VIT C CAP PO SCH (09:26)
[2017-01-24] MEDS: metFORMIN 500 MG TAB PO SCH ×2 (09:26→17:29)
[2017-01-24] MEDS: APIXABAN 5 MG TABLET PO SCH ×2 (09:28→21:05)
[2017-01-24] MEDS: AMIODARONE 200 MG TAB PO SCH ×2 (09:28→21:06)
[2017-01-24] MEDS: FERROUS SULFATE (EC) 325 MG TAB PO SCH (09:28)
[2017-01-24] MEDS: FOLIC ACID 1 MG TAB PO SCH (09:29)
[2017-01-24] MEDS: CHLORDIAZEPOXIDE 25 MG CAP PO SCH ×3 (09:30→21:04)
[2017-01-24] MEDS: POLYETHYLENE GLYCOL 17 GM PACKET PO SCH (09:31)
[2017-01-24] MEDS: METOPROLOL 50 MG TAB PO SCH ×2 (09:31→21:06)
[2017-01-24] MEDS: FAMOTIDINE 20 MG TAB PO SCH (09:31)
--- NOTE | 2017-01-24 10:12 | RADRPT ---
Vent Rate: 0 bpm RR Interval: 0 msec AK Interval: 0 msec QRS Duration: 0 msec QT Interval: 0 msec QTC Interval: 0 msec P-R-T Basile: 0 - 0 - 0 degrees Electronically Signed By: Joel Herrera [id number]
--- NOTE | 2017-01-24 11:21 | CONS ---
Date/Time of Note Date/Time of Note DATE: 01/24/17 TIME: 11:18 Assessment/Plan Assessment/Plan Additional Assessment/Plan 1. Atrial fibrillation, currently rate controlled.some mild renan to 50's - rate controlled now. No class I indication for pacer. 2. Shortness of breath. Assess for congestive heart failure - better now. 3. Hypertension, currently borderline hypotension after receiving medications- BP improved with therapy. 4. History of congestive heart failure with preserved left ventricular ejection fraction by echo 09/2016. Assess volume status. 5. History of ethanol ETOH abuse. 6. Diabetes mellitus- on meds, keep euglycemic. 7. Anemia -H/H stable. no bleeding now. . 8. Shortness of breath. 9. Pulmonary hypertension by prior echo with systolic pressure of 92 which would be severe. Consider pulmonary vasodilators. Consultation Date/Type/Reason Admit Date/Time Jan 19, 2017 at 20:31 Initial Consult Date Type of Consultation: Cardiology Referring Provider: ALBERT OROZCO 24 HR Interval Summary Free Text/Dictation NO acute events. Better fluid status - HR well controlled now- con't Med rx . Medications reviewed. ROS: No fever, no chills, no nausea, no vomiting, no diarrhea/constipation No recent weight changes No chest pain, no PND, no orthopnea No dizziness, blurred vision No thirst, no heat or cold intolerance Exam/Review of Systems Vital Signs Vitals Vital Signs Date Time Temp Pulse Resp B/P Pulse Ox O2 Delivery O2 Flow Rate FiO2 01/24/17 08:21 70 01/24/17 07:54 97.8 20 118/80 99 01/23/17 11:50 Room Air 01/20/17 08:03 2.0 Intake and Output 01/23/17 01/23/17 01/24/17 14:59 22:59 06:59 Intake Total 1200 ml 200 ml Output Total 1500 ml Balance -300 ml 200 ml Exam General: WN/WD/NAD, AOx 2-3 HEENT: Unicetric/atraumatic/EOMI (follow commands) NECK: JVD elevated, no thyromegaly Lymph: no lymphadenopathy HEART: IRregular with no S3, II/ systolic murmur at apex LUNGS: Coarse sounds ABD: soft, NT, ND, +BS : Intact Neuro: non focal SKIN: chronic changes EXT: trace edema Results Result Diagram: 01/24/17 0619 01/24/17 0619 Results 24 hrs Laboratory Tests Test 01/23/17 11:41 01/23/17 17:01 01/23/17 20:19 01/24/17 06:19 Bedside Glucose 133 96 124 White Blood Count 4.2 L Red Blood Count 4.30 L Hemoglobin 12.0 L Hematocrit 39.1 L Mean Corpuscular Volume 90.9 Mean Corpuscular Hemoglobin 27.9 L Mean Corpuscular Hemoglobin Concent 30.7 L Red Cell Distribution Width 14.8 H Platelet Count 192 Mean Platelet Volume 10.7 H Neutrophils % 59.8 Lymphocytes % 20.3 Monocytes % 16.5 H Eosinophils % 2.4 Basophils % 0.5 Nucleated Red Blood Cells % 0.0 Neutrophils # 2.5 Lymphocytes # 0.9 Monocytes # 0.7 Eosinophils # 0.1 Basophils # 0.0 Nucleated Red Blood Cells # 0.0 Sodium Level 137 Potassium Level 4.2 Chloride Level 99 Carbon Dioxide Level 27 Anion Gap 15 Blood Urea Nitrogen 25 H Creatinine 1.13 Glucose Level 107 Calcium Level 9.0 Phosphorus Level 4.0 Magnesium Level 1.7 Total Bilirubin 0.6 Direct Bilirubin 0.00 Indirect Bilirubin 0.6 Aspartate Amino Transf (AST/SGOT) 24 Alanine Aminotransferase (ALT/SGPT) 24 Alkaline Phosphatase 108 Total Protein 7.4 Albumin 3.7 Globulin 3.70 H Albumin/Globulin Ratio 1.00 Digoxin Level 0.8 L Test 01/24/17 08:21 Bedside Glucose 84 Medications Medications Current Medications Metoclopramide HCl (Reglan) 10 mg Q6H PRN IV NAUSEA AND/OR VOMITING; Start 01/19 at 22:00 Nitroglycerin (Nitroglycerin (Sl Tab) 0.4 Mg) 1 tab Q5M PRN SL CHEST PAIN; Start 01/19/17 at 22:00 Acetaminophen (Tylenol Tab) 650 mg Q6H PRN PO PAIN LEVEL 1-3 OR FEVER; Start at 22:00 Acetaminophen/ Hydrocodone Bitart ([place] (5/325)) 1 tab Q6H PRN PO PAIN LEVEL 4 -6 Last administered on 01/23/17t 07:55; Admin Dose 1 TAB; Start 01/19/17 at 22: 00 Morphine Sulfate (morphine) 2 mg Q4H PRN IV PAIN LEVEL 7-10 Last administered on 01/23/17 01:37; Admin Dose 2 MG; Start 01/19/17 at 22:00 Famotidine (Pepcid) 20 mg Q12 PO Last administered on 01/24/17 09:31; Admin Dose 20 MG; Start 01/20/17 at 09:00 Diagnostic Test (Pha) (Accu-Chek) 1 ea 02 XX Last administered on 01/23/17 01: 38; Admin Dose 1 EA; Start 01/20/17 at 02:00 Miscellaneous Information 1 ea NOTE XX ; Start 01/19/17 at 22:00 Glucose (Glutose) 15 gm Q15M PRN PO DECREASED GLUCOSE; Start 01/19/17 at 22:00 Glucose (Glutose) 22.5 gm Q15M PRN PO DECREASED GLUCOSE; Start 01/19/17 at 22:00 Dextrose (D50w Syringe) 25 ml Q15M PRN IV DECREASED GLUCOSE; Start 01/19/17 at 22:00 Dextrose (D50w Syringe) 50 ml Q15M PRN IV DECREASED GLUCOSE; Start 01/19/17 at 22:00 Glucagon (Glucagen) 1 mg Q15M PRN IM DECREASED GLUCOSE; Start 01/19/17 at 22:00 Glucose (Glutose) 15 gm Q15M PRN BUCCAL DECREASED GLUCOSE; Start 01/19/17 at 22: 00 Amiodarone HCl (Cordarone) 200 mg BID PO Last administered on 01/24/17 09:28; Admin Dose 200 MG; Start 01/19/17 at 22:30 Digoxin (Digoxin) 0.125 mg DAILY@13 PO Last administered on 01/23/17 13:44; Admin Dose 0.125 MG; Start 01/20/17 at 13:00 Diltiazem HCl (Cardizem Sr) 60 mg Q8 PO Last administered on 01/24/17 05:57; Admin Dose 60 MG; Start 01/19/17 at 22:30 Docusate Sodium (Colace) 100 mg BID PRN PO CONSTIPATION; Start 01/19/17 at 22:30 Ferrous Sulfate (Ferrous Sulfate (Ec)) 325 mg DAILY PO Last administered on 09:28; Admin Dose 325 MG; Start 01/20/17 at 09:00 Folic Acid (Folic Acid) 1 mg DAILY PO Last administered on 01/24/17 09:29; Admin Dose 1 MG; Start 01/20/17 at 09:00 Furosemide (Lasix) 40 mg DAILY@06 PO Last administered on 01/24/17 05:58; Admin Dose 40 MG; Start 01/20/17 at 06:00 Losartan Potassium (Cozaar) 25 mg DAILY PO Last administered on 01/20/17 08:52 ; Admin Dose 25 MG; Start 01/20/17 at 09:00; Status Future Hold Metoprolol Tartrate (Lopressor) 50 mg BID PO Last administered on 01/24/17 09: 31; Admin Dose 50 MG; Start 01/19/17 at 22:30 Polyethylene Glycol (Miralax) 17 gm DAILY PO Last administered on 01/24/17 09: 31; Admin Dose 17 GM; Start 01/20/17 at 09:00 Apixaban (Eliquis) 5 mg BID PO Last administered on 01/24/17 09:28; Admin Dose 5 MG; Start 01/20/17 at 21:00 Vitamin B Complex/ Vitamin C (Berocca) 1 cap DAILY PO Last administered on 01/24 09:26; Admin Dose 1 CAP; Start 01/21/17 at 09:00 Metoprolol Tartrate (Lopressor) 5 mg Q4H PRN IV SBP>110 Hold SBP<100; Start 01/20/17 at 17:00 Chlordiazepoxide (Librium) 50 mg TID PO Last administered on 01/24/17 09:30; Admin Dose 50 MG; Start 01/21/17 at 13:00 Lorazepam (Ativan) 1 mg Q2H PRN IV ANXIETY Last administered on 01/22/17 03:46 ; Admin Dose 1 MG; Start 01/21/17 at 13:00 CARMEN CARPIO MD Jan 24, 2017 11:21
--- NOTE | 2017-01-24 13:13 | PN ---
Date/Time of Note Date/Time of Note DATE: 01/24/17 TIME: 13:11 Assessment/Plan VTE Prophylaxis VTE Prophylaxis Intervention: LMWH Lines/Catheters IV C[facility]ter Type (from [facility] Saline Lock Assessment/Plan Chief Complaint/Hosp Course S: 01/23 no dyspnea or chest pain. His nausea, abd distention, and edema have stabilized. Has weakness of his legs bilaterally. 01/24 -stable still with exertional dyspnea which is not unusual O:vss; rate controlled. Some sinus bradycardia noted. PE No pallor/ JVD Appears reg. No m/r/g Dimin bs bilat. Abd- bs + nt; mild distended. no r/r/g Mild edema. No Homans sign. A/P 1. Anasarca, Decompensated. Etio? Severe pul htn related? Stable cont diuretics. 2. Severe pul htn. Secondary? Check MAC/RF. Consider V/Q. 3. A fib w RVR. Rx #2. EF noted. DC home once ok w cardio. Outpt LFTs/ TSH/ ophthl eval while on amiod. 4. Past alcoholism. No evidence of withdrawal. On b1. 5. Chr liver dz sequelae w ascites/probable cirrhosis/suspect portal htn. 6. Chr htn 7. DM/metabolic syndrome 8. Anemia 9. Deconditioning; ambulate, PT as needed. Problems: Exam/Review of Systems Vital Signs Vitals Vital Signs Date Time Temp Pulse Resp B/P Pulse Ox O2 Delivery O2 Flow Rate FiO2 01/24/17 12:03 68 01/24/17 11:51 98.0 20 107/69 98 01/23/17 11:50 Room Air 01/20/17 08:03 2.0 Intake and Output 01/23/17 01/23/17 01/24/17 15:00 23:00 07:00 Intake Total 1200 ml 200 ml Output Total 1500 ml Balance -300 ml 200 ml Results Result Diagram: 01/24/1761801/24/17618 Results 24 hrs Laboratory Tests Test 01/23/17 17:01 01/23/17 20:19 01/24/17 06:19 01/24/17 08:21 Bedside Glucose 96 124 84 White Blood Count 4.2 L Red Blood Count 4.30 L Hemoglobin 12.0 L Hematocrit 39.1 L Mean Corpuscular Volume 90.9 Mean Corpuscular Hemoglobin 27.9 L Mean Corpuscular Hemoglobin Concent 30.7 L Red Cell Distribution Width 14.8 H Platelet Count 192 Mean Platelet Volume 10.7 H Neutrophils % 59.8 Lymphocytes % 20.3 Monocytes % 16.5 H Eosinophils % 2.4 Basophils % 0.5 Nucleated Red Blood Cells % 0.0 Neutrophils # 2.5 Lymphocytes # 0.9 Monocytes # 0.7 Eosinophils # 0.1 Basophils # 0.0 Nucleated Red Blood Cells # 0.0 Sodium Level 137 Potassium Level 4.2 Chloride Level 99 Carbon Dioxide Level 27 Anion Gap 15 Blood Urea Nitrogen 25 H Creatinine 1.13 Glucose Level 107 Calcium Level 9.0 Phosphorus Level 4.0 Magnesium Level 1.7 Total Bilirubin 0.6 Direct Bilirubin 0.00 Indirect Bilirubin 0.6 Aspartate Amino Transf (AST/SGOT) 24 Alanine Aminotransferase (ALT/SGPT) 24 Alkaline Phosphatase 108 Total Protein 7.4 Albumin 3.7 Globulin 3.70 H Albumin/Globulin Ratio 1.00 Digoxin Level 0.8 L Test 01/24/17 12:21 Bedside Glucose 94 Medications Medications Current Medications Metoclopramide HCl (Reglan) 10 mg Q6H PRN IV NAUSEA AND/OR VOMITING; Start 01/19 at 22:00 Nitroglycerin (Nitroglycerin (Sl Tab) 0.4 Mg) 1 tab Q5M PRN SL CHEST PAIN; Start 01/19/17 at 22:00 Acetaminophen (Tylenol Tab) 650 mg Q6H PRN PO PAIN LEVEL 1-3 OR FEVER; Start at 22:00 Acetaminophen/ Hydrocodone Bitart ([place] (5/325)) 1 tab Q6H PRN PO PAIN LEVEL 4 -6 Last administered on 01/23/17 07:55; Admin Dose 1 TAB; Start 01/19/17 at 22: 00 Morphine Sulfate (morphine) 2 mg Q4H PRN IV PAIN LEVEL 7-10 Last administered on 01/23/17 01:37; Admin Dose 2 MG; Start 01/19/17 at 22:00 Famotidine (Pepcid) 20 mg Q12 PO Last administered on 01/24/17 09:31; Admin Dose 20 MG; Start 01/20/17 at 09:00 Diagnostic Test (Pha) (Accu-Chek) 1 ea 02 XX Last administered on 01/23/17 01: 38; Admin Dose 1 EA; Start 01/20/17 at 02:00 Miscellaneous Information 1 ea NOTE XX ; Start 01/19/17 at 22:00 Glucose (Glutose) 15 gm Q15M PRN PO DECREASED GLUCOSE; Start 01/19/17 at 22:00 Glucose (Glutose) 22.5 gm Q15M PRN PO DECREASED GLUCOSE; Start 01/19/17 at 22:00 Dextrose (D50w Syringe) 25 ml Q15M PRN IV DECREASED GLUCOSE; Start 01/19/17 at 22:00 Dextrose (D50w Syringe) 50 ml Q15M PRN IV DECREASED GLUCOSE; Start 01/19/17 at 22:00 Glucagon (Glucagen) 1 mg Q15M PRN IM DECREASED GLUCOSE; Start 01/19/17 at 22:00 Glucose (Glutose) 15 gm Q15M PRN BUCCAL DECREASED GLUCOSE; Start 01/19/17 at 22: 00 Amiodarone HCl (Cordarone) 200 mg BID PO Last administered on 01/24/17 09:28; Admin Dose 200 MG; Start 01/19/17 at 22:30 Digoxin (Digoxin) 0.125 mg DAILY@13 PO Last administered on 01/23/17 13:44; Admin Dose 0.125 MG; Start 01/20/17 at 13:00 Diltiazem HCl (Cardizem Sr) 60 mg Q8 PO Last administered on 01/24/17 05:57; Admin Dose 60 MG; Start 01/19/17 at 22:30 Docusate Sodium (Colace) 100 mg BID PRN PO CONSTIPATION; Start 01/19/17 at 22:30 Ferrous Sulfate (Ferrous Sulfate (Ec)) 325 mg DAILY PO Last administered on 09:28; Admin Dose 325 MG; Start 01/20/17 at 09:00 Folic Acid (Folic Acid) 1 mg DAILY PO Last administered on 01/24/17 09:29; Admin Dose 1 MG; Start 01/20/17 at 09:00 Furosemide (Lasix) 40 mg DAILY@06 PO Last administered on 01/24/17 05:58; Admin Dose 40 MG; Start 01/20/17 at 06:00 Losartan Potassium (Cozaar) 25 mg DAILY PO Last administered on 01/20/17 08:52 ; Admin Dose 25 MG; Start 01/20/17 at 09:00; Status Future Hold Metoprolol Tartrate (Lopressor) 50 mg BID PO Last administered on 01/24/17 09: 31; Admin Dose 50 MG; Start 01/19/17 at 22:30 Polyethylene Glycol (Miralax) 17 gm DAILY PO Last administered on 01/24/17 09: 31; Admin Dose 17 GM; Start 01/20/17 at 09:00 Apixaban (Eliquis) 5 mg BID PO Last administered on 01/24/17 09:28; Admin Dose 5 MG; Start 01/20/17 at 21:00 Vitamin B Complex/ Vitamin C (Berocca) 1 cap DAILY PO Last administered on 01/24 09:26; Admin Dose 1 CAP; Start 01/21/17 at 09:00 Metoprolol Tartrate (Lopressor) 5 mg Q4H PRN IV SBP>110 Hold SBP<100; Start 01/20/17 at 17:00 Chlordiazepoxide (Librium) 50 mg TID PO Last administered on 01/24/17 09:30; Admin Dose 50 MG; Start 01/21/17 at 13:00 Lorazepam (Ativan) 1 mg Q2H PRN IV ANXIETY Last administered on 01/22/17 03:46 ; Admin Dose 1 MG; Start 01/21/17 at 13:00 EUGENIO MICHELE MD Jan 24, 2017 13:13
[2017-01-24] MEDS: DIGOXIN 0.125 MG TAB PO SCH (16:49)
[2017-01-25] VITALS (12 sets, daily range): BP systolic 93–138; BP diastolic 54–77; PULSE 57–75; RESP 18–20
[2017-01-25] MEDS: ACCU-CHEK XX SCH (02:00)
[2017-01-25] MEDS: FUROSEMIDE 40 MG TAB PO SCH (06:15)
[2017-01-25] MEDS: SPIRONOLACTONE 25 MG TAB PO SCH ×2 (06:15→17:43)
[2017-01-25] MEDS: DILTIAZEM (SR) 60 MG CAP PO SCH ×2 (06:16→13:27)
[2017-01-25 06:48] LABS: POTASSIUM 4.2 mmol/L (3.5-5.1)
[2017-01-25 06:51] LABS: CREATININE 1.04 mg/dl (0.61-1.24)
[2017-01-25 06:52] LABS: CALCIUM 9.4 mg/dl (8.4-10.2); MAGNESIUM 1.8 mg/dl (1.7-2.5); PHOSPHORUS 3.6 mg/dl (2.5-4.9)
[2017-01-25] MEDS: INSULIN ASPART [NOVOLOG] 3 ML PEN SC SCH ×3 (08:00→17:16)
[2017-01-25] MEDS: POLYETHYLENE GLYCOL 17 GM PACKET PO SCH (08:36)
[2017-01-25] MEDS: APIXABAN 5 MG TABLET PO SCH (08:37)
[2017-01-25] MEDS: metFORMIN 500 MG TAB PO SCH ×2 (08:37→17:43)
[2017-01-25] MEDS: FERROUS SULFATE (EC) 325 MG TAB PO SCH (08:37)
[2017-01-25] MEDS: CHLORDIAZEPOXIDE 25 MG CAP PO SCH ×2 (08:37→13:26)
[2017-01-25] MEDS: AMIODARONE 200 MG TAB PO SCH (08:38)
[2017-01-25] MEDS: METOPROLOL 50 MG TAB PO SCH (08:38)
[2017-01-25] MEDS: VITAMIN B COMPLEX/VIT C CAP PO SCH (08:38)
[2017-01-25] MEDS: FOLIC ACID 1 MG TAB PO SCH (08:39)
[2017-01-25] MEDS ORDERED: FAMOTIDINE 20 MG TAB PO SCH (09:00)
--- NOTE | 2017-01-25 11:31 | PN ---
Date/Time of Note Date/Time of Note DATE: 01/25/17 TIME: 11:29 Assessment/Plan VTE Prophylaxis VTE Prophylaxis Intervention: LMWH Lines/Catheters IV Catheter Type (from Nrs): Saline Lock Assessment/Plan Chief Complaint/Hosp Course S: 01/23 no dyspnea or chest pain. His nausea, abd distention, and edema have stabilized. Has weakness of his legs bilaterally. 01/24 -stable still with exertional dyspnea which is not unusual 01/25-stable no distress. O:vss; rate controlled. No further sb. PE No pallor/ JVD irreg. No m/r/g Dimin bs bilat. Abd- bs + nt; mild distended. no r/r/g Mild edema. A/P 1. Anasarca, Decompensated. Etio? Severe pul htn related? Stable cont diuretics. Appears stable, discharge home if ok w cardio. 2. Severe pul htn. Secondary? MAC/RF sent. Consider V/Q. 3. A fib w RVR. Rx #2. EF noted. DC home once ok w cardio. Outpt LFTs/ TSH/ ophthl eval while on amiod. 4. Past alcoholism. No evidence of withdrawal. On b1. 5. Chr liver dz sequelae w ascites/probable cirrhosis/suspect portal htn. 6. Chr htn 7. DM/metabolic syndrome 8. Anemia 9. Deconditioning; ambulate, PT as needed. Problems: Exam/Review of Systems Vital Signs Vitals Vital Signs Date Time Temp Pulse Resp B/P Pulse Ox O2 Delivery O2 Flow Rate FiO2 01/25/17 08:13 68 01/25/17 07:52 98.4 18 104/68 92 01/23/17 11:50 Room Air Intake and Output 01/24/17 01/24/17 01/25/17 15:00 23:00 07:00 Intake Total 1200 ml 400 ml Output Total 2500 ml Balance -1300 ml 400 ml Results Result Diagram: 01/24/17 0619 01/25/17 0546 Results 24 hrs Laboratory Tests Test 01/24/17 12:21 01/24/17 17:16 01/24/17 21:04 01/25/17 05:46 Bedside Glucose 94 97 108 Sodium Level 140 Potassium Level 4.2 Chloride Level 101 Carbon Dioxide Level 26 Anion Gap 17 H Blood Urea Nitrogen 21 H Creatinine 1.04 Glucose Level 107 Calcium Level 9.4 Phosphorus Level 3.6 Magnesium Level 1.8 Digoxin Level 0.9 L Test 01/25/17 08:29 Bedside Glucose 112 Medications Medications Current Medications Metoclopramide HCl (Reglan) 10 mg Q6H PRN IV NAUSEA AND/OR VOMITING; Start 01/19 at 22:00 Nitroglycerin (Nitroglycerin (Sl Tab) 0.4 Mg) 1 tab Q5M PRN SL CHEST PAIN; Start 01/19/17 at 22:00 Acetaminophen (Tylenol Tab) 650 mg Q6H PRN PO PAIN LEVEL 1-3 OR FEVER Last administered on 01/25/17 06:15; Admin Dose 650 MG; Start 01/19/17 at 22:00 Acetaminophen/ Hydrocodone Bitart ([place] (5/325)) 1 tab Q6H PRN PO PAIN LEVEL 4 -6 Last administered on 01/23/17 07:55; Admin Dose 1 TAB; Start 01/19/17 at 22: 00 Morphine Sulfate (morphine) 2 mg Q4H PRN IV PAIN LEVEL 7-10 Last administered on 01/23/17 01:37; Admin Dose 2 MG; Start 01/19/17 at 22:00 Diagnostic Test (Pha) (Accu-Chek) 1 ea 02 XX Last administered on 01/23/17 01: 38; Admin Dose 1 EA; Start 01/20/17 at 02:00 Miscellaneous Information 1 ea NOTE XX ; Start 01/19/17 at 22:00 Glucose (Glutose) 15 gm Q15M PRN PO DECREASED GLUCOSE; Start 01/19/17 at 22:00 Glucose (Glutose) 22.5 gm Q15M PRN PO DECREASED GLUCOSE; Start 01/19/17 at 22:00 Dextrose (D50w Syringe) 25 ml Q15M PRN IV DECREASED GLUCOSE; Start 01/19/17 at 22:00 Dextrose (D50w Syringe) 50 ml Q15M PRN IV DECREASED GLUCOSE; Start 01/19/17 at 22:00 Glucagon (Glucagen) 1 mg Q15M PRN IM DECREASED GLUCOSE; Start 01/19/17 at 22:00 Glucose (Glutose) 15 gm Q15M PRN BUCCAL DECREASED GLUCOSE; Start 01/19/17 at 22: 00 Amiodarone HCl (Cordarone) 200 mg BID PO Last administered on 01/25/17 08:38; Admin Dose 200 MG; Start 01/19/17 at 22:30 Digoxin (Digoxin) 0.125 mg DAILY@13 PO Last administered on 01/24/17 16:49; Admin Dose 0.125 MG; Start 01/20/17 at 13:00 Diltiazem HCl (Cardizem Sr) 60 mg Q8 PO Last administered on 01/25/17 06:16; Admin Dose 60 MG; Start 01/19/17 at 22:30 Docusate Sodium (Colace) 100 mg BID PRN PO CONSTIPATION; Start 01/19/17 at 22:30 Ferrous Sulfate (Ferrous Sulfate (Ec)) 325 mg DAILY PO Last administered on 08:37; Admin Dose 325 MG; Start 01/20/17 at 09:00 Folic Acid (Folic Acid) 1 mg DAILY PO Last administered on 01/25/17 08:39; Admin Dose 1 MG; Start 01/20/17 at 09:00 Furosemide (Lasix) 40 mg DAILY@06 PO Last administered on 01/25/17 06:15; Admin Dose 40 MG; Start 01/20/17 at 06:00 Losartan Potassium (Cozaar) 25 mg DAILY PO Last administered on 01/20/17 08:52 ; Admin Dose 25 MG; Start 01/20/17 at 09:00; Status Future Hold Metoprolol Tartrate (Lopressor) 50 mg BID PO Last administered on 01/25/17 08: 38; Admin Dose 50 MG; Start 01/19/17 at 22:30 Polyethylene Glycol (Miralax) 17 gm DAILY PO Last administered on 01/25/17 08: 36; Admin Dose 17 GM; Start 01/20/17 at 09:00 Apixaban (Eliquis) 5 mg BID PO Last administered on 01/25/17 08:37; Admin Dose 5 MG; Start 01/20/17 at 21:00 Vitamin B Complex/ Vitamin C (Berocca) 1 cap DAILY PO Last administered on 01/25 08:38; Admin Dose 1 CAP; Start 01/21/17 at 09:00 Metoprolol Tartrate (Lopressor) 5 mg Q4H PRN IV SBP>110 Hold SBP<100; Start 01/20/17 at 17:00 Chlordiazepoxide (Librium) 50 mg TID PO Last administered on 01/25/17 08:37; Admin Dose 50 MG; Start 01/21/17 at 13:00 Lorazepam (Ativan) 1 mg Q2H PRN IV ANXIETY Last administered on 01/22/17 03:46 ; Admin Dose 1 MG; Start 01/21/17 at 13:00 Famotidine (Pepcid) 20 mg DAILY PO Last administered on 01/25/17 08:37; Admin Dose 20 MG; Start 01/25/17 at 09:00 EUGENIO MICHELE MD Jan 25, 2017 11:31
--- NOTE | 2017-01-25 11:32 | PDOCDIS ---
Discharge Instructions DIAGNOSIS Discharge Diagnosis: CHF CONDITION Patient Condition: Stable HOME CARE INSTRUCTIONS: Special Diet: Carb controlled diet ACTIVITY: Activity Restrictions: Slowly Increase Activity Do not Drive FOLLOW UP/APPOINTMENTS Appointments pcp 1wk Cardio; Dr Gomez 1-2wks Check weight and record every monday. Lab- do next week. EUGENIO MICHELE MD Jan 25, 2017 11:32
[2017-01-25] MEDS ORDERED: VITBC PO (11:37)
[2017-01-25] MEDS: DIGOXIN 0.125 MG TAB PO SCH (13:27)
--- NOTE | 2017-01-25 13:45 | DS ---
DATE OF ADMISSION: 01/19/2017 DATE OF DISCHARGE: 01/25/2017 PRIMARY CARE PHYSICIAN: Unknown. VICE PRESIDENT NETWORK DEVELOPMENT: Dr. Gomez, Dr. Gutierrez. DIAGNOSIS ON ADMISSION: Anasarca. DIAGNOSES ON DISCHARGE: 1. Acute decompensated congestive heart failure, probably diastolic. 2. Severe pulmonary hypertension. 3. Atrial fibrillation, rapid ventricular response. 4. Past alcoholism. 5. Chronic liver disease sequelae with ascites, probable cirrhosis and portal hypertension. 6. Hypertension. 7. Diabetes metabolic syndrome. 8. Anemia. 9. Valvular heart disease, moderate aortic stenosis, mild MR, mild to moderate TR. HOSPITAL COURSE: A 61-year-old gentleman admitted with anasarca. No evidence of ACS. No evidence of nephrotic syndrome. The issue is CHF and pulmonary hypertension. Patient was seen by cardiology . He has been optimized by THOM inhibitor, beta naty, rate control and Lasix and spironolactone. Additionally, we added digoxin. Unfortunately, due to the progressive nature of this disease, ther e is no cure and they can expect reoccurrences. He is adequately compensated today and stable and f it for discharge. Etiology undetermined. The treatment is about the same diuretic care and blood p ressure management along with calcium channel naty. He is stable and fit for discharge. In terms of atrial fibrillation, he still appears to be in Afib. He will probably not benefit from long-term amiodarone use, but at this time it appears to be helping. He had some sinus bradycardia yesterday, but none overnight. As he is on amiodarone, we could recommend doing a liver function te st, TSH and an ophthalmology evaluation down the line. Past alcoholism. No evidence of withdrawal. He is on while in the hospital and will go home on thiamine. He does have chronic liver disease sequelae with probable bone marrow suppression, kahn cytopenia, ascites, probable cirrhosis, suspected pulmonary hypertension. A SAAG analysis could be utilized as needed to determine the etiology of his ascites as needed. No evidence of encephalopathy. He can continue his beta naty. Diabetes, stable on 1800 ADA diet. He should be able tolerate metformin. Anemia, stable, no active bleed. DISCHARGE PLAN: Home. Follow up with primary in [address] Gomez, Dr. Gutierrez in 1 to 2 weeks. DIET: 1800 ADA, low salt. ACTIVITY: As tolerated. No driving. ALLERGIES: NONE. CODE STATUS: FULL. CONDITION: Stable. BARRIERS TO DISCHARGE: None. PENDING TESTS: MAC and RF as needed. BARRIERS TO DISCHARGE: None. FUNCTIONAL STATUS: Patient awake, alert, agrees with plan of care. REASON FOR ADMISSION: Anasarca. IMAGING STUDIES: A 2-D echo shows an EF of 60, mild right ventricular hypokinesis. There is right atrial enlargement, mild MR, moderate aortic stenosis, mild to moderate TR. Chest x-ray shows moder ate cardiomegaly digoxin level therapeutic 0.9. INR 1.5. LABORATORIES: White cell count 4.2, hemoglobin and hematocrit of 12 and 39, platelets of 190, MCV o f 90. Sodium 140, potassium 4.2, chloride 101, bicarbonate 26, BUN 21, creatinine 1.0, anion gap of 17, glucose stable. Magnesium 1.8, calcium 9, phosphorus 3. LFTs showed AST and ALT of 24 and 24, alkaline phosphatase 108, bilirubin 0.6, protein of 7, albumin of 3.7, A1c of 6.9. TSH of 4.2. Vi tamin D level 40. Troponin negative on admission. Cholesterol 115, triglycerides 67, LDL 43, HDL 5 9. Iron 34, binding capacity of 490, percent sat at 7, ferritin at 40. Ammonia less than 9. DISCHARGE MEDICATIONS: Stop medications, antibiotics. These are old medicines. There is no eviden ce of colitis, etc. at this time. No history of SBP. CONTINUED MEDICATIONS: 1. Amiodarone 200 twice daily for now. 2. Eliquis 5 mg twice daily. 3. Digoxin 0.125 daily. 4. Cardizem-SR 60 daily. 5. Colace 100 twice daily as needed. 6. Iron 325 daily. 7. Folic acid 1 mg daily. 8. Lasix 40 daily. 9. Losartan 25 daily. 10. Metformin 1000 mg b.i.d. 11. Lopressor 50 twice daily. 12. MiraLax 1 packet daily. 13. Spironolactone 12.5 b.i.d. ALTERED MEDICATIONS: None. NEW MEDICATIONS: Thiamine 100 mg daily. Dictated By: EUGENIO MICHELE MD AC/NTS Conf#: [id number] DID#: [id number] CC: TERA GOMEZ MD;*EndCC*
--- NOTE | 2017-01-25 13:49 | CONS ---
Date/Time of Note Date/Time of Note DATE: 01/25/17 TIME: 13:43 Assessment/Plan Assessment/Plan Chief Complaint/Hosp Course IMPRESSION: 1. Atrial fibrillation, currently rate controlled.some mild renan to 50's 2. Shortness of breath. Assess for congestive heart failure. 3. Hypertension, currently borderline hypotension after receiving medications. 4. History of congestive heart failure with preserved left ventricular ejection fraction by echo 09/2016. Assess volume status. 5. History of ethanol ETOH abuse. 6. Diabetes mellitus. 7. Anemia. 8. Shortness of breath. 9. Pulmonary hypertension by prior echo with systolic pressure of 92 which would be severe. Consider pulmonary vasodilators. RECOMMENDATIONS: -Tele -serial ecg's -Decrease dose of CCB to allow patient to better tolerate -Low dose BB as tolerated -Hold apixaban/digoxin - loing as BP remains stable okj for d/c from cardiac standpoint -Consider pulmonary vasodilators -Continue librium Problems: Consultation Date/Type/Reason Admit Date/Time Jan 19, 2017 at 20:31 Initial Consult Date 01/20/2017 Type of Consultation: Cardiology Reason for Consultation AF Referring Provider: ALBERT OROZCO Exam/Review of Systems Vital Signs Vitals Vital Signs Date Time Temp Pulse Resp B/P Pulse Ox O2 Delivery O2 Flow Rate FiO2 01/25/17 13:25 68 117/65 01/25/17 12:02 97.6 20 94 01/23/17 11:50 Room Air Intake and Output 01/24/17 01/24/17 01/25/17 15:00 23:00 07:00 Intake Total 1200 ml 400 ml Output Total 2500 ml Balance -1300 ml 400 ml Exam Review of Systems: CONSTITUTIONAL: No fevers, chills. PULMONARY: No sob CARDIOVASCULAR: No chest pain/palpitations GASTROINTESTINAL: No nausea/vomiting. GENITOURINARY: No hematuria/dysuria. MUSCULOSKELETAL: No myagias/arthalgias. PSYCHIATRIC: The patient denies depression. NEUROLOGIC: mild generalized weakness Constitutional: alert, oriented Psych: no complaints Head: normocephalic ENMT: mucosa pink and moist Neck: jvd, supple Respiratory: diminished breath sounds Cardiovascular: irregular rhythm Gastrointestinal: non-tender, soft Musculoskeletal: muscle tone (normal) Extremities: edema (none) Neurological: other (No focal deficits) Results Result Diagram: 01/24/17 0619 01/25/17 0546 Results 24 hrs Laboratory Tests Test 01/24/17 17:16 01/24/17 21:04 01/25/17 05:46 01/25/17 08:29 Bedside Glucose 97 108 112 Sodium Level 140 Potassium Level 4.2 Chloride Level 101 Carbon Dioxide Level 26 Anion Gap 17 H Blood Urea Nitrogen 21 H Creatinine 1.04 Glucose Level 107 Calcium Level 9.4 Phosphorus Level 3.6 Magnesium Level 1.8 Digoxin Level 0.9 L Test 01/25/17 12:07 Bedside Glucose 148 Medications Medications Current Medications Metoclopramide HCl (Reglan) 10 mg Q6H PRN IV NAUSEA AND/OR VOMITING; Start 01/19 at 22:00 Nitroglycerin (Nitroglycerin (Sl Tab) 0.4 Mg) 1 tab Q5M PRN SL CHEST PAIN; Start 01/19/17 at 22:00 Acetaminophen (Tylenol Tab) 650 mg Q6H PRN PO PAIN LEVEL 1-3 OR FEVER Last administered on 01/25/17 06:15; Admin Dose 650 MG; Start 01/19/17 at 22:00 Acetaminophen/ Hydrocodone Bitart ([place] (5/325)) 1 tab Q6H PRN PO PAIN LEVEL 4 -6 Last administered on 01/23/17 07:55; Admin Dose 1 TAB; Start 01/19/17 at 22: 00 Morphine Sulfate (morphine) 2 mg Q4H PRN IV PAIN LEVEL 7-10 Last administered on 01/23/17 01:37; Admin Dose 2 MG; Start 01/19/17 at 22:00 Diagnostic Test (Pha) (Accu-Chek) 1 ea 02 XX Last administered on 01/23/17 01: 38; Admin Dose 1 EA; Start 01/20/17 at 02:00 Miscellaneous Information 1 ea NOTE XX ; Start 01/19/17 at 22:00 Glucose (Glutose) 15 gm Q15M PRN PO DECREASED GLUCOSE; Start 01/19/17 at 22:00 Glucose (Glutose) 22.5 gm Q15M PRN PO DECREASED GLUCOSE; Start 01/19/17 at 22:00 Dextrose (D50w Syringe) 25 ml Q15M PRN IV DECREASED GLUCOSE; Start 01/19/17 at 22:00 Dextrose (D50w Syringe) 50 ml Q15M PRN IV DECREASED GLUCOSE; Start 01/19/17 at 22:00 Glucagon (Glucagen) 1 mg Q15M PRN IM DECREASED GLUCOSE; Start 01/19/17 at 22:00 Glucose (Glutose) 15 gm Q15M PRN BUCCAL DECREASED GLUCOSE; Start 01/19/17 at 22: 00 Amiodarone HCl (Cordarone) 200 mg BID PO Last administered on 01/25/17 08:38; Admin Dose 200 MG; Start 01/19/17 at 22:30 Digoxin (Digoxin) 0.125 mg DAILY@13 PO Last administered on 01/25/17 13:27; Admin Dose 0.125 MG; Start 01/20/17 at 13:00 Diltiazem HCl (Cardizem Sr) 60 mg Q8 PO Last administered on 01/25/17 06:16; Admin Dose 60 MG; Start 01/19/17 at 22:30 Docusate Sodium (Colace) 100 mg BID PRN PO CONSTIPATION; Start 01/19/17 at 22:30 Ferrous Sulfate (Ferrous Sulfate (Ec)) 325 mg DAILY PO Last administered on 08:37; Admin Dose 325 MG; Start 01/20/17 at 09:00 Folic Acid (Folic Acid) 1 mg DAILY PO Last administered on 01/25/17 08:39; Admin Dose 1 MG; Start 01/20/17 at 09:00 Furosemide (Lasix) 40 mg DAILY@06 PO Last administered on 01/25/17 06:15; Admin Dose 40 MG; Start 01/20/17 at 06:00 Losartan Potassium (Cozaar) 25 mg DAILY PO Last administered on 01/20/17 08:52 ; Admin Dose 25 MG; Start 01/20/17 at 09:00; Status Future Hold Metoprolol Tartrate (Lopressor) 50 mg BID PO Last administered on 01/25/17 08: 38; Admin Dose 50 MG; Start 01/19/17 at 22:30 Polyethylene Glycol (Miralax) 17 gm DAILY PO Last administered on 01/25/17 08: 36; Admin Dose 17 GM; Start 01/20/17 at 09:00 Apixaban (Eliquis) 5 mg BID PO Last administered on 01/25/17 08:37; Admin Dose 5 MG; Start 01/20/17 at 21:00 Vitamin B Complex/ Vitamin C (Berocca) 1 cap DAILY PO Last administered on 01/25 08:38; Admin Dose 1 CAP; Start 01/21/17 at 09:00 Metoprolol Tartrate (Lopressor) 5 mg Q4H PRN IV SBP>110 Hold SBP<100; Start 01/20/17 at 17:00 Chlordiazepoxide (Librium) 50 mg TID PO Last administered on 01/25/17 13:26; Admin Dose 50 MG; Start 01/21/17 at 13:00 Lorazepam (Ativan) 1 mg Q2H PRN IV ANXIETY Last administered on 01/22/17 03:46 ; Admin Dose 1 MG; Start 01/21/17 at 13:00 Famotidine (Pepcid) 20 mg DAILY PO Last administered on 01/25/17 08:37; Admin Dose 20 MG; Start 01/25/17 at 09:00 TERA SARGENT Jan 25, 2017 13:49
[2017-01-25] MEDS ORDERED: Diltiazem PO (13:59)
[2017-01-25] MEDS ORDERED: DILTIAZEM 30 MG TAB PO SCH (14:00)
--- NOTE | 2017-01-25 14:28 | DS ---
DATE OF ADMISSION: 01/19/2017 DATE OF DISCHARGE: 01/25/2017 ADDENDUM The patient was kept in the hospital. Medications were reviewed. We will decrease the dose of calc ium channel naty. Discontinue Lasix. Discontinue ARB. Rate controlled. We will continue with beta naty and calcium channel naty. We will continue Eliquis, digoxin and amiodarone. Dictated By: EUGENIO MICHELE MD AC/NTS Conf#: [id number] DID#: [id number] CC: TERA SARGENT MD;*EndCC*
[2017-01-25 15:31] LABS: ANA SCREEN NEGATIVE (NEGATIVE)
== END 2017-01-25 18:30 | disposition home or self-care (01) | DRG 308 ==
LOC: MS4 20:31
PROVIDERS: ADMIT Family Medicine; ATTEND Family Medicine
DX: I48.91 Unspecified atrial fibrillation (principal); I50.33 Acute on chronic diastolic (congestive) heart failure; F10.231 Alcohol dependence with withdrawal delirium; K76.6 Portal hypertension; E11.65 Type 2 diabetes mellitus with hyperglycemia; I27.2 Other secondary pulmonary hypertension; K70.31 Alcoholic cirrhosis of liver with ascites; I11.0 Hypertensive heart disease with heart failure; F10.10 Alcohol abuse, uncomplicated; I35.0 Nonrheumatic aortic (valve) stenosis; N18.9 Chronic kidney disease, unspecified; D63.1 Anemia in chronic kidney disease; E83.42 Hypomagnesemia; I34.0 Nonrheumatic mitral (valve) insufficiency; I36.1 Nonrheumatic tricuspid (valve) insufficiency
CPT/HCPCS: 71010; 80048; 80053; 80061; 80162; 82140; 82652; 82728; 82962; 83036; 83540; 83735; 83880; 84100; 84439; 84443; 84484; 85025; 85610; 85730; 86038; 86430; 93005; 93308; J1815; J2060; J2270; J3475